=== PATIENT | male | born 1955 | race Caucasian/White ===

== ENCOUNTER → 2017-09-29 | Day surgery (SDC) | payer MEDICARE ==
[2017-09-28 10:07] LABS: INR 1.03; PROTHROMBIN TIME 12.7 seconds (11.9-14.5)
[2017-09-28 10:08] LABS: BASOPHILS # (AUTO) 0.1 (0.0-0.1); BASOPHILS % 0.5 % (0.0-1.0); EOSINOPHILS # (AUTO) 0.3 (0.0-0.4); EOSINOPHILS % 2.8 % (0.0-6.0); HEMATOCRIT 44.8 % (38.2-49.6); HEMOGLOBIN 15.4 g/dL (14.0-18.0); LYMPHOCYTES # (AUTO) 2.2 (1.0-3.2); LYMPHOCYTES % 19.3 % (18.0-39.1); MEAN CORPUSCULAR HEMOGLOBIN 35.3 pg (28-32); MEAN CORPUSCULAR HGB CONC 34.4 g/dL (31-35); MEAN CORPUSCULAR VOLUME 102.8 fL (81-99); MONOCYTES # (AUTO) 1.1 (0.2-0.8); MONOCYTES % 9.7 % (4.4-11.3); NEUTROPHILS # (AUTO) 7.6 (2.1-6.9); NEUTROPHILS % 67.4 % (38.7-80.0); PLATELET COUNT 220 x10e3/uL (140-360); RED BLOOD COUNT 4.36 x10e6/uL (4.3-5.7)
[2017-09-28 10:21] LABS: ALBUMIN 4.2 g/dL (3.5-5.0); ALBUMIN/GLOBULIN RATIO 1.1 (0.8-2.0); ANION GAP 15.3 mmol/L (8-16); CALCIUM 9.8 mg/dL (8.4-10.2); CHOL/HDL RATIO 2.9 (3.9-4.7); CREATININE, SERUM 1.5 mg/dL (0.72-1.25)
[2017-09-28 10:36] LABS: POTASSIUM 6.3 mmol/L (3.5-5.1)
[2017-09-28 13:07] LABS: BASOPHILS % 0.4 % (0.0-1.0); EOSINOPHILS # (AUTO) 0.2 (0.0-0.4); EOSINOPHILS % 1.7 % (0.0-6.0); HEMATOCRIT 44.8 % (38.2-49.6); HEMOGLOBIN 15.2 g/dL (14.0-18.0); LYMPHOCYTES # (AUTO) 1.8 (1.0-3.2); LYMPHOCYTES % 18.1 % (18.0-39.1); MEAN CORPUSCULAR HEMOGLOBIN 35.1 pg (28-32); MEAN CORPUSCULAR HGB CONC 33.9 g/dL (31-35); MEAN CORPUSCULAR VOLUME 103.5 fL (81-99); MONOCYTES # (AUTO) 0.7 (0.2-0.8); MONOCYTES % 6.8 % (4.4-11.3); NEUTROPHILS % 72.8 % (38.7-80.0); PLATELET COUNT 217 x10e3/uL (140-360); RED BLOOD COUNT 4.33 x10e6/uL (4.3-5.7)
[2017-09-28 13:17] LABS: INR 1.03; PROTHROMBIN TIME 12.7 seconds (11.9-14.5)
[2017-09-28 13:37] LABS: ALBUMIN 4.1 g/dL (3.5-5.0); ALBUMIN/GLOBULIN RATIO 1.1 (0.8-2.0); ANION GAP 15.8 mmol/L (8-16); CALCIUM 9.5 mg/dL (8.4-10.2); CREATININE, SERUM 1.29 mg/dL (0.72-1.25)
[2017-09-28 13:50] LABS: POTASSIUM 4.8 mmol/L (3.5-5.1)
[~2017-09-29] VITALS: Ht 186.7 cm; Wt 95.7 kg
[~2017-09-29] MED LIST: ASPIRIN 325 MG TAB ONE; ASPIRIN 325 MG TAB PO ONE; DOXAZOSIN MESYLA4 MG PO; FENTANYL CITRATE/PF 100MCG/2 ML INJ IV PRN; FENTANYL CITRATE/PF 100MCG/2 ML INJ ONE; HEPARIN SOD (PORCINE) 1000 UNIT/ML 30ML ONE; HEPARIN SOD/SOD CHLORIDE 2,000 ML ONE; IOPAMIDOL 370 MG/ML 200 ML INFUS..BTL INJ ONE; LIDOCAINE HCL 2% LOCAL 20 ML VIAL ONE; MIDAZOLAM HCL 2 MG/2 ML VIAL IV PRN; MIDAZOLAM HCL 2 MG/2 ML VIAL ONE; NITROGLYCERIN 400 MCG/SPRAY 4.9 GM BTL ONE; NITROGLYCERIN 400 MCG/SPRAY 4.9 GM BTL TL PRN; NITROGLYCERIN/D5W 200 MCG/ML 250 ML ONE; PRAVASTATIN SOD20 MG PO; SODIUM CHLORIDE 0.9% 1000ML 1,000 ML ONE; SODIUM CHLORIDE 0.9% 1000ML 500 ML IV ONE; VERAPAMIL HCL 2.5 MG/ML 2 ML VIAL ONE
[2017-09-29 07:21] VITALS: BP 125/87
--- NOTE | 2017-09-29 09:58 | Operative Report ---
DATE OF PROCEDURE: September 29, 2017 MANAGER DOCUMENTATION: Cosme Navarro, interventional cardiology. PROCEDURES PERFORMED 1. Left heart catheterization. 2. Selective coronary angiography x2. 3. Right radial TR Band hemostasis. PROCEDURE COMPLICATIONS: None. ESTIMATED BLOOD LOSS: Less than 5 mL. PROCEDURE SUMMARY: After consent was obtained, patient was prepped and draped in a sterile fashion. The right radial site was locally infiltrated with 2% lidocaine. Access was obtained using a single anterior stick, and a 5-Icelandic outer-diameter Slender sheath was placed. Verapamil 2.5 mg, 3000 units of heparin, and 300 mcg of nitroglycerin were administered via the sheath and a thick catheter was used for engagement of the right coronary artery, Franco catheter for engagement of the left main. A thick catheter was also used to cross the aortic valve for hemodynamic measurements. No left ventriculogram was performed, as patient's creatinine was 1.29 preprocedure. The following findings were noted: 1. A left main with luminal irregularities and large caliber gives an LAD and a circumflex. 2. The LAD has luminal irregularities throughout. It gives 2 septal perforators and 2 diagonals. In the apical portion, it wraps around the apex and ends in the apical anterior segment of LV myocardium. 3. The circumflex gives 2 obtuse marginals, the first of which has 30% proximal stenosis. 4. The right coronary artery is downward in takeoff and has, in the mid portion, an area of tubular 40% stenosis and a distal area of 30% focal stenosis. Terminal branches of this vessel are an RPDA and an RPLV. This is a dominant RCA. 5. LV pressure was 104 over minus 5, with end-diastolic pressure of 11. 6. Aortic pressure was 100/74. CONCLUSION: Mild to moderate multivessel coronary artery disease. RECOMMENDATIONS: Aspirin and statin. IV fluids. Wean TR Band. Follow up in the office in 1 to 2 weeks. Job#: [id number] TOÑO
== END | disposition home or self-care (01) ==
LOC: CATH LAB 07:21
PROVIDERS: ATTEND Internal Medicine Cardiovascular Disease
DX: I25.10 Atherosclerotic heart disease of native coronary artery without angina pectoris (principal); I10 Essential (primary) hypertension; E78.5 Hyperlipidemia, unspecified; I73.9 Peripheral vascular disease, unspecified; E11.9 Type 2 diabetes mellitus without complications; M06.9 Rheumatoid arthritis, unspecified; Z01.810 Encounter for preprocedural cardiovascular examination; Z01.812 Encounter for preprocedural laboratory examination; Z82.49 Family history of ischemic heart disease and other diseases of the circulatory system
CPT/HCPCS: 36415; 77002; 80053; 80061; 85025; 85610; 93005; 93458; C1887; J1644; J2001; J2250; J7030; Q9967; 36140

== ENCOUNTER 2017-10-21 14:33 | Observation (INO) | payer MEDICARE ==
[~2017-10-21] VITALS: Ht 186.7 cm; Wt 96.6 kg
[~2017-10-21 14:33] MED LIST changes: -ASPIRIN 325 MG TAB ONE; -ASPIRIN 325 MG TAB PO ONE; -FENTANYL CITRATE/PF 100MCG/2 ML INJ IV PRN; -FENTANYL CITRATE/PF 100MCG/2 ML INJ ONE; -HEPARIN SOD (PORCINE) 1000 UNIT/ML 30ML ONE; -HEPARIN SOD/SOD CHLORIDE 2,000 ML ONE; -IOPAMIDOL 370 MG/ML 200 ML INFUS..BTL INJ ONE; -LIDOCAINE HCL 2% LOCAL 20 ML VIAL ONE; -MIDAZOLAM HCL 2 MG/2 ML VIAL IV PRN; -MIDAZOLAM HCL 2 MG/2 ML VIAL ONE; -NITROGLYCERIN 400 MCG/SPRAY 4.9 GM BTL ONE; -NITROGLYCERIN 400 MCG/SPRAY 4.9 GM BTL TL PRN; -NITROGLYCERIN/D5W 200 MCG/ML 250 ML ONE; -SODIUM CHLORIDE 0.9% 1000ML 1,000 ML ONE; -SODIUM CHLORIDE 0.9% 1000ML 500 ML IV ONE; -VERAPAMIL HCL 2.5 MG/ML 2 ML VIAL ONE
[2017-10-21] MEDS ORDERED: ASPIRIN81 MG PO (14:49)
[2017-10-21] MEDS ORDERED: DOXAZOSIN MESYLA2 MG PO (14:49)
[2017-10-21] MEDS ORDERED: METOPROLOL SUCC25 MG PO (14:49)
[2017-10-21] MEDS ORDERED: COREG3.125 MG PO (14:49)
[2017-10-21] MEDS ORDERED: ATORVASTATIN CA40 MG PO (14:49)
[2017-10-21] MEDS ORDERED: ENOXAPARIN SODIUM INJ 100 MG/ML SYR SC STA (15:40)
[2017-10-21] MEDS ORDERED: ASPIRIN 81 MG CHEW TAB PO STA (15:40)
[2017-10-21] MEDS ORDERED: ONDANSETRON HCL INJ 2 MG/ML VIAL IV STA (15:40)
[2017-10-21] MEDS ORDERED: SODIUM CHLORIDE 0.9% 1000ML 1,000 ML IV STA (15:40)
[2017-10-21] MEDS ORDERED: PANTOPRAZOLE 40 MG 10ML VIAL IV STA (15:40)
[2017-10-21] MEDS ORDERED: MORPHINE SULFATE 2 MG/ML SYR IV STA (15:40)
[2017-10-21] MEDS ORDERED: METOPROLOL TARTRATE 50 MG TAB PO STA (15:40)
[2017-10-21 15:58] LABS: BASOPHILS % 0.3 % (0.0-1.0); EOSINOPHILS # (AUTO) 0.2 (0.0-0.4); EOSINOPHILS % 1.8 % (0.0-6.0); HEMATOCRIT 45.1 % (38.2-49.6); HEMOGLOBIN 15.5 g/dL (14.0-18.0); LYMPHOCYTES # (AUTO) 1.4 (1.0-3.2); LYMPHOCYTES % 14.9 % (18.0-39.1); MEAN CORPUSCULAR HEMOGLOBIN 34.8 pg (28-32); MEAN CORPUSCULAR HGB CONC 34.4 g/dL (31-35); MEAN CORPUSCULAR VOLUME 101.1 fL (81-99); MONOCYTES # (AUTO) 0.7 (0.2-0.8); NEUTROPHILS % 75.7 % (38.7-80.0); PLATELET COUNT 167 x10e3/uL (140-360); RED BLOOD COUNT 4.46 x10e6/uL (4.3-5.7); RED CELL DISTRIBUTION WIDTH 12.3 % (11.7-14.4)
[2017-10-21] MEDS ORDERED: ONDANSETRON HCL INJ 2 MG/ML VIAL IV PRN (16:00)
[2017-10-21] MEDS ORDERED: MORPHINE SULFATE 2 MG/ML SYR IV PRN (16:00)
[2017-10-21] MEDS ORDERED: SODIUM CHLORIDE FLUSH 10 ML SYR INJ PRN (16:00)
[2017-10-21] MEDS ORDERED: NITROGLYCERIN 0.4 MG SUBL SL PRN (16:00)
[2017-10-21 16:02] LABS: INR 1.05; PROTHROMBIN TIME 12.9 seconds (11.9-14.5)
[2017-10-21 16:03] LABS: BILIRUBIN,URINE NEGATIVE (NEGATIVE); CLARITY,URINE CLEAR (CLEAR); COLOR,URINE YELLOW (YELLOW); KETONES,URINE NEGATIVE (NEGATIVE); LEUKOCYTE ESTERASE ,URINE NEGATIVE (NEGATIVE); NITRITE,URINE NEGATIVE (NEGATIVE); PARTIAL THROMBOPLASTIN TIME 29.3 seconds (23.8-35.5); PROTEIN,URINE DIPSTICK NEGATIVE (NEGATIVE); URINE UROBILINOGEN 0.2 mg/dL (0.2 - 1)
[2017-10-21 16:11] LABS: ALANINE AMINOTRANSFERASE 17 IU/L (0-55); ALBUMIN 4.4 g/dL (3.5-5.0); ALBUMIN/GLOBULIN RATIO 1.3 (0.8-2.0); ALKALINE PHOSPHATASE 72 IU/L (40-150); ANION GAP 16.9 mmol/L (8-16); BLOOD UREA NITROGEN 14 mg/dL (7-26); BUN/CREATININE RATIO 13 (6-25); CALCIUM 9.4 mg/dL (8.4-10.2); CARBON DIOXIDE 25 mmol/L (22-29); CHLORIDE 102 mmol/L (98-107); CREATINE KINASE 90 IU/L (30-200); CREATININE, SERUM 1.11 mg/dL (0.72-1.25); EST GLOMERULAR FILTRATION RATE > 60 ML/MIN (60-); GLUCOSE 98 mg/dL (74-118); LIPASE 63 U/L (8-78); MAGNESIUM 2.3 MG/DL (1.3-2.1); POTASSIUM 3.9 mmol/L (3.5-5.1); SODIUM 140 mmol/L (136-145)
[2017-10-21 16:31] LABS: THYROID STIMULATING HORMONE 1.276 uIU/mL (0.350-4.940)
[2017-10-21] MEDS: ENOXAPARIN SODIUM INJ 100 MG/ML SYR SC SCH (16:31)
[2017-10-21] MEDS: METOPROLOL TARTRATE 25 MG TAB PO SCH (16:31)
[2017-10-21 16:36] LABS: MUCUS,URINE MODERATE (RARE); WBC,URINE (MAN) 0-5 /HPF (0-5)
--- NOTE | 2017-10-21 17:02 | Diagnostic Imaging Report ---
PROCEDURE: A single AP view of the chest. COMPARISON: None. INDICATIONS: CHEST PAIN FINDINGS: Lines/tubes: None. Lungs: The lungs are slightly hypoinflated but grossly clear. There is no evidence of pneumonia or pulmonary edema. Pleura: There is no pleural effusion or pneumothorax. Heart and mediastinum: Cardiac silhouette is unremarkable. Pulmonary vasculature is normal. Bones: No acute bony abnormality. IMPRESSION: 1. slightly hypoinflated lungs, without acute cardiopulmonary abnormalities. Yves Mcdonough M.D. Dictated by: Yves Mcdonough M.D. on 10/21/2017 at 17:02 Electronically approved by: Yves Mcdonough M.D. on 10/21/2017 at 17:02
[2017-10-21] MEDS: FAMOTIDINE 20 MG/2 ML VIAL IV SCH (17:34)
[2017-10-21 18:49] VITALS: BP 135/70
[2017-10-21 18:54] VITALS: BP 128/79
[2017-10-21 19:20] VITALS: BP 120/68
[2017-10-21 20:00] VITALS: BP 120/68
--- NOTE | 2017-10-21 20:00 | Diagnostic Imaging Report ---
EXAM: CT Chest WITH contrast 10/21/2017 6:38 PM INDICATION: \S\Chest pain. r/o PE \[id number] \S\[id number] COMPARISON: None. TECHNIQUE: Abdomen and pelvis were scanned utilizing a multidetector helical scanner from the lung base to the pubic symphysis after administration of IV contrast. Coronal and sagittal reformations were obtained. IV CONTRAST: 100 mL of Isovue-370 ORAL CONTRAST: None COMPLICATIONS: None RADIATION DOSE: Total DLP: 503.7 mGy*cm Estimated effective dose: (DLP x 0.015 x size factor) mSv CTDIvol has been reviewed. It is below the limits set by the Radiation Protocol Committee (RPC). FINDINGS: LINES/ TUBES: None. PULMONARY ARTERIES: No filling defects are identified in the main, right or left pulmonary arteries to their segmental and subsegmental levels, to suggest pulmonary embolism. The main pulmonary artery is normal in size. LUNGS AND AIRWAYS: Minimal atelectasis in both lung bases. Otherwise, lungs are clear. Airways are normal. PLEURA: Trace bilateral pleural effusions. No pneumothorax. HEART AND MEDIASTINUM: The thyroid gland is normal. Few nonspecific subcentimeter right hilar lymph nodes. The left atrium is mildly enlarged. No RV strain. There is no pericardial effusion. The thoracic aorta is normal in caliber and associated with minimal calcifications in the arch. UPPER ABDOMEN: Cholecystectomy. BONES: The visualized bony thorax is within normal limits. SOFT TISSUES: Unremarkable. IMPRESSION: No pulmonary embolism. Minimal atelectasis in both lung bases, otherwise unremarkable lungs. Trace bilateral pleural effusions. Signed by: Dr. Alma Benitez M.D. on 10/21/2017 7:57 PM
[2017-10-21] MEDS: ATORVASTATIN 40 MG TAB PO SCH (20:11)
[2017-10-21] MEDS ORDERED: ATORVASTATIN 20 MG TAB PO SCH (21:00)
[2017-10-21] MEDS ORDERED: IOPAMIDOL 370 MG/ML 200 ML INFUS..BTL INJ ONE (22:42)
[2017-10-21] MEDS ORDERED: SODIUM CHLORIDE 0.9% 50ML 50 ML ONE (22:42)
--- NOTE | 2017-10-21 23:40 | Consultation ---
DATE OF CONSULTATION: October 21, 2017 CARDIOLOGY CONSULTATION REASON FOR CONSULTATION: Chest pain. REFERRING PHYSICIANS: Dr. Ney Jiang and Dr. Jayce Ruggiero. HISTORY OF PRESENT ILLNESS: Mr. Anglin is a pleasant, 62-year-old man with history of hypertension, dyslipidemia, and family history for CAD, status post recent cardiac catheterization on September 29, 2017 at the time with 1st obtuse marginal 30% and RCA 40% in the mid portion of the RCA and then 30% in distal focal area. No gradient across the aortic valve on pullback and normal LVEDP at the time. He presents with complaints of chest pain, moderate in severity, lasted pretty much all day today, still mild, however, present. EKG shows sinus rhythm. His chest x-ray shows slightly hypoinflated lungs without acute cardiopulmonary abnormalities. His BNP was 17.5 and his troponin I was 0.004 at 3:30 p.m. today. Normal lipase. He has no other complaints at this time. REVIEW OF SYSTEMS: Twelve systems reviewed, negative except for as noted above. ALLERGIES: NO KNOWN DRUG ALLERGIES. PAST MEDICAL HISTORY: As per HPI. SOCIAL HISTORY: Negative x3. FAMILY HISTORY: Significant for early onset coronary artery disease. PHYSICAL EXAMINATION VITAL SIGNS: Temperature 98.1, heart rate 60, respiratory rate 18, blood pressure 128/79, O2 sat 100% on 2 liters per minute nasal cannula. GENERAL: In no acute distress, alert. NECK: No JVD. No carotid bruits. CHEST: Clear to auscultation. CARDIOVASCULAR: Regular rate and rhythm. Normal S1 and S2. No S3. No S4. No murmurs or rubs. ABDOMEN: Soft, nontender. EXTREMITIES: No edema. Warm distal extremities. CARDIOVASCULAR MEDICATIONS: Reviewed and include metoprolol tartrate 25 mg q.12 h. Atorvastatin 40 mg nightly. Lovenox 1 mg/kg q.12 h. Doxazosin 2 mg daily. Nitroglycerin p.r.n. STUDIES: Reviewed and significant for creatinine of 1.1. Normal transaminases. Normal cardiac initial biomarkers. TSH of 1.2. INR 1. White blood cells 9.2, hemoglobin 15.5, platelets 167,000. Echocardiogram reviewed left ventricular function, normal regional wall motion, left ventricular ejection fraction of 60% to 65%. Age appropriate diastolic filling. Borderline left atrial enlargement. Trace mitral regurgitation. Small generalized pericardial effusion. ASSESSMENT 1. Atypical chest pain with initial negative cardiac biomarkers. 2. Mild to moderate coronary artery disease. 3. Hypertension and dyslipidemia. RECOMMENDATIONS: 1. Continue current cardiovascular medications. Recommend CTAB protocol. 2. Regarding pericardial effusion, can consider management empirically for acute pericarditis and assess response. 3. Will continue to monitor closely. 4. Await CT results. 5. Trend cardiac enzymes. 6. Further recommendations to follow. Job#: [id number]
[2017-10-22] VITALS (7 sets, daily range): BP systolic 93–124; BP diastolic 56–62
[2017-10-22 00:10] LABS: CREATINE KINASE 85 IU/L (30-200)
[2017-10-22] MEDS: METOPROLOL TARTRATE 25 MG TAB PO SCH ×2 (03:47→16:00)
[2017-10-22] MEDS: ENOXAPARIN SODIUM INJ 100 MG/ML SYR SC SCH (03:55)
[2017-10-22] MEDS: FAMOTIDINE 20 MG/2 ML VIAL IV SCH (03:55)
[2017-10-22 06:11] LABS: BASOPHILS % 0.4 % (0.0-1.0); EOSINOPHILS # (AUTO) 0.2 (0.0-0.4); HEMATOCRIT 40.6 % (38.2-49.6); HEMOGLOBIN 13.9 g/dL (14.0-18.0); LYMPHOCYTES # (AUTO) 2.8 (1.0-3.2); LYMPHOCYTES % 27.9 % (18.0-39.1); MEAN CORPUSCULAR HEMOGLOBIN 34.7 pg (28-32); MEAN CORPUSCULAR HGB CONC 34.2 g/dL (31-35); MEAN CORPUSCULAR VOLUME 101.2 fL (81-99); MONOCYTES # (AUTO) 0.8 (0.2-0.8); MONOCYTES % 7.8 % (4.4-11.3); NEUTROPHILS # (AUTO) 6.1 (2.1-6.9); NEUTROPHILS % 61.7 % (38.7-80.0); PLATELET COUNT 177 x10e3/uL (140-360); RED BLOOD COUNT 4.01 x10e6/uL (4.3-5.7); RED CELL DISTRIBUTION WIDTH 12.5 % (11.7-14.4)
[2017-10-22 06:39] LABS: ALANINE AMINOTRANSFERASE 18 IU/L (0-55); ALBUMIN 3.7 g/dL (3.5-5.0); ALBUMIN/GLOBULIN RATIO 1.3 (0.8-2.0); ALKALINE PHOSPHATASE 58 IU/L (40-150); ANION GAP 14.8 mmol/L (8-16); BLOOD UREA NITROGEN 14 mg/dL (7-26); BUN/CREATININE RATIO 13 (6-25); CARBON DIOXIDE 27 mmol/L (22-29); CHLORIDE 108 mmol/L (98-107); CHOLESTEROL 130 MD/DL (0-199); CREATINE KINASE 76 IU/L (30-200); CREATININE, SERUM 1.11 mg/dL (0.72-1.25); EST GLOMERULAR FILTRATION RATE > 60 ML/MIN (60-); GLUCOSE 91 mg/dL (74-118); HDL CHOLESTEROL 43 MG/DL (40-60); LDL CHOLESTEROL 72 MG/DL (60-130); MAGNESIUM 2.2 MG/DL (1.3-2.1); POTASSIUM 4.8 mmol/L (3.5-5.1); SODIUM 145 mmol/L (136-145); TRIGLYCERIDES 76 MG/DL (0-149)
[2017-10-22] MEDS: ASPIRIN 81 MG ENTERIC COATED PO SCH (08:55)
[2017-10-22] MEDS ORDERED: ASPIRIN 325 MG TAB EC PO SCH (09:00)
[2017-10-22] MEDS ORDERED: DOXAZOSIN MESYLATE 2 MG TAB PO SCH (09:00)
[2017-10-22] MEDS ORDERED: CITRATE OF MAGNESIA 300ML BOTTLE PO ONE (14:15)
[2017-10-22] MEDS: IBUPROFEN 400 MG TAB PO SCH ×2 (14:44→21:08)
[2017-10-22] MEDS ORDERED: IBUPROFEN 600 MG TAB PO SCH (15:00)
[2017-10-22 15:02] LABS: CREATINE KINASE 72 IU/L (30-200)
--- NOTE | 2017-10-22 15:03 | Progress Note ---
DATE: October 22, 2017 CARDIOLOGY PROGRESS NOTE SUBJECTIVE: The patient continues to complain of chest pain. He denies shortness of breath. OBJECTIVE VITAL SIGNS: Temperature 95.6 degrees, pulse 60, respiratory rate 18, blood pressure 99/61, oxygen saturation 97% on room air. GENERAL: Awake, alert, in no acute distress. LUNGS: Clear to auscultation bilaterally. No wheezes or crackles. CARDIOVASCULAR: Normal rate, regular rhythm. No murmur. Normal S1 and S2. ABDOMEN: Soft, nontender. EXTREMITIES: No edema. CARDIAC MEDICATIONS 1. Aspirin 162 mg p.o. daily. 2. Atorvastatin 40 mg p.o. at bedtime. 3. Doxazosin 2 mg p.o. daily. 4. Metoprolol titrate 25 mg q.12 hours. LABS: WBC 9.96, hemoglobin 13.9, hematocrit 40.6, platelets 177. Sodium 145, potassium 4.8, chloride 108, CO2 of 27, BUN 14, creatinine 1.11. Troponin less than 0.001. Cholesterol 130, triglyceride 76, LDL 72, and HDL 43. TELEMETRY: Normal sinus rhythm. IMPRESSION 1. Atypical chest pain with negative cardiac biomarkers. 2. [id number] coronary artery disease. 3. Hypertension. 4. Dyslipidemia. RECOMMENDATIONS: Continue current cardiac medications. CTA of the chest ruled out was without evidence of PE. Echocardiogram only revealed a small generalized pericardial effusion. Consider empiric management for acute pericarditis with NSAIDs. Alternatively consider GI evaluation. Thank you for this consult. We will continue to follow. Job#: [id number] ANA
[2017-10-22] MEDS: PANTOPRAZOLE SOD 40 MG TABEC PO SCH (16:23)
[2017-10-22] MEDS: ATORVASTATIN 40 MG TAB PO SCH (21:08)
[2017-10-23] VITALS: BP 124/63
[2017-10-23 04:00] VITALS: BP 115/56
[2017-10-23] MEDS: METOPROLOL TARTRATE 25 MG TAB PO SCH (04:00)
[2017-10-23 08:11] VITALS: BP 133/61
[2017-10-23] MEDS: PANTOPRAZOLE SOD 40 MG TABEC PO SCH (08:49)
[2017-10-23] MEDS: ASPIRIN 81 MG ENTERIC COATED PO SCH (08:49)
[2017-10-23] MEDS: IBUPROFEN 400 MG TAB PO SCH (08:50)
[2017-10-23 09:12] VITALS: BP 133/61
[2017-10-23] MEDS ORDERED: PANTOPRAZOLE SO40 MG PO (09:29)
[2017-10-23] MEDS ORDERED: IBUPROFEN200 MG PO (09:29)
--- NOTE | 2017-10-23 14:03 | Discharge Summary ---
PRIMARY CARE DOCTOR: Miguelito Silva MD FINAL DIAGNOSIS: Likely pericarditis. SECONDARY DIAGNOSES 1. Hypertension. 2. Dyslipidemia. 3. Rheumatoid arthritis. 4. Constipation, resolved. JANITORIAL TECH: Dr. Navarro, cardiology. PROCEDURES/STUDIES PERFORMED: CT angiography of the chest, which was negative for PE. HISTORY: Per [facility] HOSPITAL COURSE: Given the fact that the patient just had a left heart cath less than a month ago which showed nonobstructive coronary artery disease, this is not a cardiac chest pain. The patient recently, less than a month ago, stopped his methotrexate on his own because it was not working, which may have potentially contributed to inflammation. The patient was started on high-dose ibuprofen 800 mg t.i.d. with meals, and he is doing much better now. Protonix was started as well just in case there is a GI component to his chest pain and also as a GI prophylaxis. Since the patient is doing well now, he will go home today on 2 more weeks of daily Protonix and 600 mg t.i.d. with meals of ibuprofen. His constipation was resolved with magnesium citrate. The patient was seen and examined today. CONDITION ON DISCHARGE: Stable. DISCHARGE MEDICATIONS: Please see medication reconciliation form. Of note, since he still feels that by switching his metoprolol succinate to Coreg was partially to be blamed, I told him to just continue his metoprolol succinate and not take his Coreg. ANDREY BARRETT M.D. Job#: [id number] cc:MIGUELITO SILVA MD
== END 2017-10-23 10:13 | disposition home or self-care (01) ==
LOC: ER 14:33 → ERHOLD 16:55 → IMCU 17:31
PROVIDERS: ADMIT Internal Medicine; ATTEND Internal Medicine
DX: R07.89 Other chest pain (principal); J90 Pleural effusion, not elsewhere classified; K59.00 Constipation, unspecified; M06.9 Rheumatoid arthritis, unspecified; I10 Essential (primary) hypertension; I25.10 Atherosclerotic heart disease of native coronary artery without angina pectoris; E78.5 Hyperlipidemia, unspecified
CPT/HCPCS: 36415; 71045; 71260; 80053; 80061; 81001; 82550; 82553; 83690; 83735; 83880; 84443; 84484; 85025; 85610; 85730; 87086; 93005; 93306; 99284; G0378; J1650; J2270; J2405; J7030; Q9967

== ENCOUNTER → 2019-08-10 | Outpatient (CLI) | payer MEDICARE ==
[~2019-08-10] MED LIST changes: +ASPIRIN81 MG PO; +ATORVASTATIN CA40 MG PO; +COREG3.125 MG PO; +DOXAZOSIN MESYLA2 MG PO; +IBUPROFEN200 MG PO; +METOPROLOL SUCC25 MG PO; +PANTOPRAZOLE SO40 MG PO
--- NOTE | 2019-08-10 08:39 | Diagnostic Imaging Report ---
EXAM: US THYROID DATE: 08/10/2019 7:46 AM INDICATION: Thyroid nodule COMPARISON: None FINDINGS: The right thyroid lobe is normal in size measuring 4.3 x 1.5 x 1.5 cm. The isthmus measures 2 mm in thickness and appears unremarkable. The left thyroid lobe is normal in size measuring 4.1 x 1.6 x 1.5 cm. The thyroid parenchyma is homogeneous without evidence for focal nodule. Thyroid vascularity is within normal limits. IMPRESSION: Unremarkable thyroid ultrasound examination. Signed by: Dr. Hemant Newsome MD on 08/10/2019 8:35 AM
== END ==
LOC: US 07:34
PROVIDERS: ATTEND Family Medicine
DX: E04.1 Nontoxic single thyroid nodule (principal)
CPT/HCPCS: 76536

== ENCOUNTER 2020-01-20 10:36 | Observation (INO) | payer MEDICARE ==
[~2020-01-20] VITALS: Ht 185.4 cm; Wt 102.5 kg
--- OUTSIDE RECORDS SUMMARY | 2020-01-20 10:40 | XMS REPORT | Continuity of Care Document ---
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 Active Problem 01/06/2020 Satinder Meek Encounter for long-term (current) use of other high-risk medications Active Diag nosis 10/22/2018 Satinder Meek Need for prophylactic vaccination and in oculation against influenza Active Diag nosis 07/06/2017 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 Problem 01/06/2020 Satinder Meek Encounter for screening for other infect ious and parasitic diseases Active Diag nosis 09/21/2019 Satinder Meek Encounter for screening for other bacterial diseases Active Diagnosis 09/21/2019 Satinder Meek Encounter for screening for other viral diseases Active Diagnosis 09/21/2019 Satinder Meek Encounter for screening for infectious a nd parasitic diseases, unspecified Active Diagnosis 09/21/2019 Satinder Meek Encounter for screening for respiratory tuberculosis Active Diagnosis 09/21/2019 aStinder Meek Shoulder pain Active Diagnosis 09/21/2019 Satinder Meek Immunocompromised state Active Problem 01/06/2020 Satinder Meek Medications Medication Details Route Status Patient Instructions Ordering Provider Order Date Source PredniSONE 1 tablet Orally Active 5 MG Orally Once a day [place] 12/19/2019 Satinder Meek PredniSONE 1 tablet Orally Active 5 MG Orally Once a day [place] 09/12/2019 Satinder Meek Prednisone Taper 3 tablets for 5 days, 2 tablets for 5 days and then 1 tablet for 5 days Orally Active 5mg Orally once a day [place] 08/23/2019 Satinder Meek Prednisone Taper 3 tablets for 5 days, 2 tablets for 5 days and then 1 tablet for 5 days Orally Active 5mg Orally once a day [facility] 07/10/2019 Satinder Meek Methotrexate (Anti-Rheumatic) 6 tablets Orally Active 2.5 MG Orally q week [facility] 07/20/2018 Satinder Meek Methotrexate (Anti-Rheumatic) 10 tablets orally Active 2.5 MG orally once a week [place] 07/20/2018 Satinderaddie Meek Simponi Aria 2mg/kg at 220 lbs (199.6mg) Intravenous Active 50 MG/4ML Intravenous loading dose at week 0 4 and then q8wks [place] 07/19/2018 Satinder Meek Folic Acid 1 tablet Orally Active 1 MG Orally Once a day [place] 06/10/2017 Satinder Meek Folic Acid 1 tablet Orally Active 1 MG Orally Once a day [place] 09/14/2016 Satinderaddie Meek Methotrexate (Anti-Rheumatic) 6 tablets Orally Active 2.5 MG Orally q week [place] 01/14/2016 Satinderaddie Meek Methotrexate (Anti-Rheumatic) 4 tablets Orally Active 2.5 MG Orally q week [place] 01/14/2016 Satinderaddie Meek Folic Acid 1 tablet Orally Active 1 MG Orally Once a day [place] 10/10/2015 Satinder Meek Methotrexate four tabs Orally Active 2.5 MG Orally q weeks [place] 10/10/2015 Satinderaddie Meek Methotrexate take 6 pills once weekly Orally Active 2.5mg Orally Once a week [place] 01/17/2014 Satinderaddie Meek Methotrexate 5 tablets Orally Active 2.5mg Orally Once a wee k [place] 12/24/2013 Satinder Meek Folic Acid as directed Orally Active 1 MG Orally q am [facility] 10/21/2012 Satinder Meek Doxazosin Mesylate 1 tablet Orally Active 4 MG Orally Once a day Brendon eMek Pravastatin Sodium 1 tablet Orally Active 80 MG Orally Once a day [place] Satinder Meek Aspir-81 1 tablet Orally Active 81 MG Orally Once a day Brendon Meek Atorvastatin Calcium 1 tablet Orally Active 80 MG Orally Once a day [place] Satinder Meek Folic Acid TAKE 1 TABLET BY [facility] ONCE A DAY NA Active 1 MG Brendon Meek Metoprolol Succinate ER 1 tabl et Orally Active 25 MG Orally Once a day [place] Satinder Meek Doxazosin Mesylate 1 tablet Orally Active 4 MG Orally Once a day [place] Satinder Meek Pravastatin Sodium 1 tablet Orally Active 80 MG Orally Once a day Meek Satinder Meek Tramadol one tab orally Active 50 mg orally every 4-6 hours prn pain Susanna Meek Ciprofloxacin 5 ml Orally Active 500 MG/5ML (10%) Orally Twice a day Susanna Meek Metoprolol Tartrate 1 tablet w ith food Orally Active 100 MG Orally Twice a day Brendon Meek Inflectra as directed Intravenous Active 100 MG Intravenous Brendon Meek Rosuvastatin Calcium 1 tablet Orally Active 40 MG Orally Once a day Brendon Meek Metoprolol Tartrate 1 tablet w ith food Orally Active 25 MG Orally Twice a day Brendon Meek Terbinafine HCl 1 tablet Orally Active 250 MG Orally Once a da y Brendon Meek Allergies, Adverse Reactions, Alerts Substance Category Reaction Severity Reaction type Status Date Reported Comments Source N.K.D.A. Adverse Reaction Info Not Available Adverse Reaction 01/04/2020 Satinder Meek Immunizations Immunization Date Given Site Status Last Updated Comments Source Flu Vaccine 06/29/2017 completed Satinder Meek Depomedrol 10/10/2015 completed Satinder Meek Depomedrol 12/22/2013 completed Satinder Meek Toradol 12/22/2013 completed Satinder Meek Results No Data Provided for This Section Pathology Reports No Data Provided for This Section Diagnostic Reports No Data Provided for This Section Consultation Notes No Data Provided for This Section Discharge Summaries No Data Provided for This Section History and Physicals No Data Provided for This Section Vital Signs Vital Sign Value Date Comments Source Weight 218.7 01/04/2020 Satnider Meek Height 74 0 01/04/2020 Satinder Meek Temperature Oral (F) 99.3 F 01/04/2020 Satinder Meek Heart Rate 64 01/04/2020 Satinder Meek Diastolic (mm Hg) 72 01/04/2020 Satinder Meek Systolic (mm Hg) 112 01/04/2020 Satinder Meek Weight 215.3 11/09/2019 Satinder Meek Height 74 0 11/09/2019 Satinder Meek Temperature Oral (F) 97.6 F 11/09/2019 Satinder Meek Heart Rate 64 11/09/2019 Satinder Meek Diastolic (mm Hg) 62 11/09/2019 Satinder Meek Systolic (mm Hg) 100 11/09/2019 Satinder Meek Weight 217.8 09/12/2019 Satinder Meek Height 74 0 09/12/2019 Satinder Meek Temperature Oral (F) 97.4 F 09/12/2019 Satinder Meek Heart Rate 87 09/12/2019 Satinder Meek Diastolic (mm Hg) 83 09/12/2019 Satinder Meek Systolic (mm Hg) 145 09/12/2019 Satinder Meek Weight 224.6 07/10/2019 Satinder Meek Height 71 1 09/09/2018 Satinder Meek Temperature Oral (F) 99.0 F 07/10/2019 Satinder Meek Heart Rate 92 07/10/2019 Satinder Meek Diastolic (mm Hg) 88 07/10/2019 Satinder Meek Systolic (mm Hg) 118 07/10/2019 Satinder Meek Weight 226.9 05/22/2019 Satinder Meek Height 74 1 Satinder Meek Temperature Oral (F) 97.4 F 05/22/2019 Satinder Meek Heart Rate 91 05/22/2019 Satinder Meek Diastolic (mm Hg) 79 05/22/2019 Satinder Meek Systolic (mm Hg) 130 05/22/2019 Satinder Meek Weight 229.1 03/27/2019 Satinder Meek Height 74 0 03/27/2019 Satinder Meek Temperature Oral (F) 97.8 F 03/27/2019 Satinder Meek Heart Rate 72 03/27/2019 Satinder Meek Diastolic (mm Hg) 80 03/27/2019 Satinder Meek Systolic (mm Hg) 112 03/27/2019 Satinder Meek Weight 218.8 10/17/2018 Satinder Meek Height 74 0 10/17/2018 Satinder Meek Temperature Oral (F) 96.8 F 10/17/2018 Satinder Meek Heart Rate 70 10/17/2018 Satinder Meek Diastolic (mm Hg) 80 10/17/2018 Satinder Meek Systolic (mm Hg) 122 10/17/2018 Satinder Meek Weight 220.1 07/19/2018 Satinder Meek Height 74 1 09/19/2017 Satinder Meek Temperature Oral (F) 97.0 F 07/19/2018 Satinder Meek Heart Rate 76 07/19/2018 Satinder Meek Diastolic (mm Hg) 84 07/19/2018 Satinder Meek Systolic (mm Hg) 122 07/19/2018 Satinder Meek Weight 205.3 06/29/2017 Satinder Meek Height 74 1 08/29/2016 Satinder Meek Temperature Oral (F) 97.5 F 06/29/2017 Satinder Meek Heart Rate 70 06/29/2017 Satinder Meek Diastolic (mm Hg) 88 06/29/2017 Satinder Meek Systolic (mm Hg) 120 06/29/2017 Satinder Meek Weight 225 10/10/2015 Satinder Meek Height 74 0 10/10/2015 Satinder Meek Temperature Oral (F) 97.4 F 10/10/2015 Satinder Meek Weight 220 12/22/2013 Satinder Meek Height 73 0 12/22/2013 Satinder Meek Temperature Oral (F) 97.2 F 12/22/2013 Satinder Meek Heart Rate 80 12/22/2013 Satinder Meek Diastolic (mm Hg) 72 12/22/2013 Satinder Meek Systolic (mm Hg) 124 12/22/2013 Satinder Meek Encounters Location Location Details Encounter Type Encounter Number Reason For Visit Attending Provider ADM Date DC Date Status Source Altaf Meek MD Unknown [id number] 12/23/19 14 12/22/2013 Satinder Meek MD Unknown [id number] 12/23/19 14 12/22/2013 Satinder Meek MD Unknown [id number] 12/23/19 14 12/22/2013 Satinder Meek MD Unknown [id number] 12/23/19 14 12/22/2013 Satinder Meek MD Unknown [id number] 12/23/19 14 12/22/2013 Satinder Meek MD Unknown [id number] 12/23/19 14 12/22/2013 Satinder Meek MD Unknown [id number] 12/23/19 14 12/22/2013 Satinder Meek MD Unknown [id number] 12/23/19 14 12/22/2013 Satinder Meek MD Unknown [id number] 12/23/19 14 12/22/2013 Satinder Meek MD Unknown [id number] 12/23/19 14 12/22/2013 Satinder Meek MD Unknown [id number] 12/23/19 14 12/22/2013 Satinder Meek MD Treatment update [id number] 12/25/19 14 12/24/2013 Satinder Meek MD Treatment update [id number] 12/25/19 14 12/24/2013 Satinder Meek MD Treatment update [id number] 12/25/19 14 12/24/2013 Satinder Meek MD Treatment update [id number] 12/25/19 14 12/24/2013 Satinder Meek MD Treatment update [id number] 12/25/19 14 12/24/2013 Satinder Meek MD Treatment update [id number] 12/25/19 14 12/24/2013 Satinder Meek MD Treatment update [id number] 12/25/19 14 12/24/2013 Satinder Meek MD Treatment update [id number] 12/25/19 14 12/24/2013 Satinder Meek MD Treatment update [id number] 12/25/19 14 12/24/2013 Satinder Meek MD Treatment update [id number] 12/25/19 14 12/24/2013 Satinder Meek MD Treatment update [id number] 12/25/19 14 12/24/2013 Satinder Meek MD Treatment update [id number] 12/25/19 14 12/24/2013 Satinder Meek MD Treatment update [id number] 12/25/19 14 12/24/2013 Satinder Meek MD BILLING [id number] 12/26/19 14 12/25/2013 Satinder Meek MD BILLING [id number] 12/26/19 14 12/25/2013 Satinder Meek MD BILLING [id number] 12/26/19 14 12/25/2013 Satinder Meek MD BILLING [id number] 12/26/19 14 12/25/2013 Satinder Meek MD BILLING [id number] 12/26/19 14 12/25/2013 Satinder Meek MD BILLING [id number] 12/26/19 14 12/25/2013 Satinder Meek MD BILLING [id number] 12/26/19 14 12/25/2013 Satinder Meek MD BILLING [id number] 12/26/19 14 12/25/2013 Satinder Meek MD BILLING [id number] 12/26/19 14 12/25/2013 Satinder Meek MD BILLING [id number] 12/26/19 14 12/25/2013 Satinder Meek MD BILLING [id number] 12/26/19 14 12/25/2013 Satinder Meek MD BILLING [id number] 12/26/19 14 12/25/2013 Satinder Meek MD BILLING [id number] 12/26/19 14 12/25/2013 Satinder Meek MD Research [id number] 01/16/20 14 01/15/2014 Satinder Meek MD Research [id number] 01/16/20 14 01/15/2014 Satinder Meek MD Research [id number] 01/16/20 14 01/15/2014 Satinder Meek MD Research [id number] 01/16/20 14 01/15/2014 Satinder Meek MD Research [id number] 01/16/20 14 01/15/2014 Satinder Meek MD Research [id number] 01/16/20 14 01/15/2014 Satinder Meek MD Research [id number] 01/16/20 14 01/15/2014 Satinder Meek MD Research [id number] 01/16/20 14 01/15/2014 Satinder Meek MD Research [id number] 01/16/20 14 01/15/2014 Satinder Meek MD Research [id number] 01/16/20 14 01/15/2014 Satinder Meek MD Research [id number] 01/16/20 14 01/15/2014 [facility]atinder [facility] [id number] 03/12/20 14 03/12/2014 Satinder Meek MD Refill- MTX [id number] 03/12/20 14 03/12/2014 Satinder Meek MD Refill- MTX [id number] 03/12/20 14 03/12/2014 Satinder Meek MD Refill- MTX [id number] 03/12/20 14 03/12/2014 Satinder Meek MD Refill- MTX [id number] 03/12/20 14 03/12/2014 Satinder Meek MD Refill- MTX [id number] 03/12/20 14 03/12/2014 Satinder Meek MD Refill- MTX [id number] 03/12/20 14 03/12/2014 Satinder Meek MD Refill- MTX [id number] 03/12/20 14 03/12/2014 Satinder Meek MD Refill- MTX [id number] 03/12/20 14 03/12/2014 Satinder Meek MD actemra PE [id number] 04/30/20 14 04/30/2014 Satinder Meek MD actemra PE [id number] 04/30/20 14 04/30/2014 Satinder Meek MD actemra PE [id number] 04/30/20 14 04/30/2014 Satinder Meek MD actemra PE [id number] 04/30/20 14 04/30/2014 Satinder Meek MD actemra PE [id number] 04/30/20 14 04/30/2014 Satinder Meek MD actemra PE [id number] 04/30/20 14 04/30/2014 Satinder Meek MD actemra PE [id number] 04/30/20 14 04/30/2014 Satinder Meek MD [facility] [id number] 05/28/20 14 05/28/2014 Satinder Meek MD [facility] [id number] 05/28/20 14 05/28/2014 Satinder Meek MD [place] [id number] 05/28/20 14 05/28/2014 Satinder Meek MD [place] [id number] 05/28/20 14 05/28/2014 Satinder Meek MD [place] [id number] 05/28/20 14 05/28/2014 Satinder Meek MD [place] [id number] 05/28/20 14 05/28/2014 Satinder Meek MD [facility] [id number] 05/28/20 14 05/28/2014 Satinder Meek MD [facility] [id number] 05/28/20 14 05/28/2014 Satinder Meek MD abbvie 465 SANDRA vs humira [id number] 10/10/19 16 10/10/2015 Satinder Meek MD abbvie 465 SANDRA vs humira [id number] 10/10/19 16 10/10/2015 Satinder Meek MD abbvie 465 SANDRA vs humira [id number] 10/10/19 16 10/10/2015 Satinder Meek MD abbvie 465 SANDRA vs humira [id number] 10/10/19 16 10/10/2015 Satinder Meek MD abbvie 465 SANDRA vs humira [id number] 10/10/19 16 10/10/2015 Satinder Meek MD abbvie 465 SANDRA vs humira [id number] 10/10/19 16 10/10/2015 Satinder Meek MD abbvie 465 SANDRA vs humira [id number] 10/10/19 16 10/10/2015 Satinder Meek MD fu [id number] 10/10/2015 10/10/2015 Satinder Meek MD fu [id number] 10/10/2015 10/10/2015 Satinder Meek MD fu [id number] 10/10/2015 10/10/2015 Satinder Meek MD fu [id number] 10/10/2015 10/10/2015 Satinder Meek MD fu [id number] 10/10/2015 10/10/2015 Satinder Meek MD fu [id number] 10/10/2015 10/10/2015 Satinder Meek MD Screen fail 4-465 [id number] 01/29/20 16 01/29/2016 Satinder Meek MD Screen fail M14-465 [id number] 01/29/20 16 01/29/2016 Satinder Meek MD Screen fail M14-465 [id number] 01/29/20 16 01/29/2016 Satinder Meek MD Screen fail M14-465 [id number] 01/29/20 16 01/29/2016 Satinder Meek MD Screen fail M14-465 [id number] 01/29/20 16 01/29/2016 Satinder Meek MD METHOTREXATE REFILL [id number] 04/15/2016 04/15/2016 Satinder Meek MD METHOTREXATE REFILL [id number] 04/15/2016 04/15/2016 Satinder Meek MD METHOTREXATE REFILL [id number] 04/15/2016 04/15/2016 Satinder Meek MD METHOTREXATE REFILL [id number] 04/15/2016 04/15/2016 Satinder Meek MD DEXA [id number] 05/11/2016 05/11/2016 Satinder Meek MD DEXA [id number] 05/11/2016 05/11/2016 Satinder Meek MD DEXA [id number] 05/11/2016 05/11/2016 [place] [address] Protocol. [id number] 05/22/2016 05/22/2016 [place] [address] Protocol. [id number] 05/22/2016 05/22/2016 Satinder Meek MD med refill [id number] 09/14/19 17 09/14/2016 Satinder Meek Procedures No Data Provided for This Section Assessment and Plan No Data Provided for This Section Plan of Care No Data Provided for This Section Social History Social History Date Source Social History ElementQualifiersDate Rep orted Tobacco Use: . Are you a:: former smoker , How long has it been since you last smoked?: > 10 years Oct 10, 2015 Marital Status: single. Oct 10, 2015 Caffeine: no. Oct 10, 2015 Exercise: yes. walking Oct 10, 2015 Alcohol: no. Oct 10, 2015 Occupation: . [employer] Oct 10, 2015 10/10/2015 Satinder Meek Family History No Data Provided for This Section Advance Directives No Data Provided for This Section Functional Status No Data Provided for This Section
--- OUTSIDE RECORDS SUMMARY | 2020-01-20 10:40 | XMS REPORT ---
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
--- OUTSIDE RECORDS SUMMARY | 2020-01-20 10:40 | XMS REPORT ---
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
--- OUTSIDE RECORDS SUMMARY | 2020-01-20 10:40 | XMS REPORT ---
Author Author GARFIELD Meek Organization [employer] Address Unknown Phone Unavailable Care Team Providers Care Fulling Mill Operator Name Role Phone Altaf Meek CP Unavailable Allergies No Known Allergies Problems Problem Type Condition Code Onset Dates Condition Statu s Problem Rheumatoid arthritis with rh eumatoid factor of multiple sites without organ or systems involvement M05.79 Active Problem alf current use of 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 Z79.89 9 Active Medications No Known Medications Results No Known Results Summary Purpose [employer] Submission
--- OUTSIDE RECORDS SUMMARY | 2020-01-20 10:40 | XMS REPORT ---
Author GARFIELD Aguilar Organization [employer] Address Unknown Phone Unavailable Care Team Providers Care Counselor Dormitory Name Role Phone Altaf Meek CP Unavailable Allergies No Known Allergies Problems Problem Type Condition Code Onset Dates Condition Statu s Problem Long-term (current) use of other medications - High Ri sk V58.69 Active Problem Rheumatoid arthritis 714.0 Active Medications No Known Medications Results No Known Results Summary Purpose [employer] Submission
--- OUTSIDE RECORDS SUMMARY | 2020-01-20 10:40 | XMS REPORT ---
Author Author GARFIELD Friedman [facility] [employer] Address Unknown Phone Unavailable Care Team Providers Care Effervescent Salts Compounder Name Role Phone Becca Friedman CP Unavailable Allergies, Adverse Reactions, Alerts Substance Reaction Event Type N.K.D.A. Info Not Available Non Drug Allergy Problems Problem Type Condition Code Onset Dates Condition Statu s Assessment Rheumatoid arthritis with rh eumatoid factor of multiple sites without organ or systems involvement M05.79 Active Problem Rheumatoid arthritis with rh eumatoid factor of multiple sites without organ or systems involvement M05.79 Active Assessment Encounter for long-term (current) use of other high-risk medications Z79.899 Active Medications Medication Code System Code Instructions Start Date End Date Status Dosage Aspir-81 [facility] 49246681141 81 MG Orally Once a day Act diana 1 tablet Atorvastatin Calcium [facility] 01318556910 80 MG Orally Once a day Active 1 tablet Methotrexate (Anti-Rheumatic) ND 79660279708 2.5 MG Orally q week January 14, 2016 Active 6 tablets Doxazosin Mesylate [facility] 60007550457 4 MG Orally Once a day Active 1 tablet Folic Acid [facility] 81760529193 1 MG Active TAKE 1 TA BLET BY MOUTH ONCE A DAY Metoprolol Succinate ER ND 32965080412 25 MG Orally Once a day Active 1 tablet Simponi Aria [facility] 17854310485 50 MG/4ML Intrav enous loading dose at week 0 4 and then q8wks Jul 19, 2018 Active 2mg/kg at 220 lb s (199.6mg) Vital Signs Date/Time: Jul 19, 2018 BMI 28.26 Index Weight 220.1 lbs Height 74 in Temperature 97.0 F Cardiac Monitoring Heart Rate 76 /min Blood Pressure Diastolic 84 mm Hg Blood Pressure Systolic 122 mm Hg Results No Known Results Summary Purpose [employer] Submission
--- OUTSIDE RECORDS SUMMARY | 2020-01-20 10:40 | XMS REPORT ---
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
--- OUTSIDE RECORDS SUMMARY | 2020-01-20 10:40 | XMS REPORT ---
Author Author GARFIELD Meek Organization [employer] Address Unknown Phone Unavailable Care Team Providers Care Court Officer Name Role Phone Altaf Meek CP Unavailable Allergies No Known Allergies Problems Problem Type Condition Code Onset Dates Condition Statu s Problem Rheumatoid arthritis with rh eumatoid factor of multiple sites without organ or systems involvement M05.79 Active Medications No Known Medications Results No Known Results Summary Purpose [employer] Submission
--- OUTSIDE RECORDS SUMMARY | 2020-01-20 10:40 | XMS REPORT ---
Author Author GARFIELD Friedman [facility] eClinicalWorks Address Unknown Phone Unavailable Care Team Providers Care Crossbow Maker Name Role Phone Becca Friedman Unavailable Allergies, Adverse Reactions, Alerts Substance Reaction Event Type N.K.D.A. Info Not Available Non Drug Allergy Problems Problem Type Condition Code Onset Dates Condition Statu s Problem Rheumatoid arthritis with rh eumatoid factor of multiple sites without organ or systems involvement M05.79 Active Problem shelter current use of 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 Z79.89 9 Active Assessment Rheumatoid arthritis with rh eumatoid factor of multiple sites without organ or systems involvement M05.79 Active Assessment Encounter for long-term (current) use of other high-risk medications Z79.899 Active Medications Medication Code System Code Instructions Start Date End Date Status Dosage Folic Acid [facility] 74175649330 1 MG Active TAKE 1 TA BLET BY MOUTH ONCE A DAY Methotrexate (Anti-Rheumatic) [facility] 31279945870 2.5 MG Orally q week Jul 20, 2018 Active 6 tablets Atorvastatin Calcium [facility] 52991209506 80 MG Orally Once a day Active 1 tablet Doxazosin Mesylate [facility] 50595719999 4 MG Orally Once a day Active 1 tablet Inflectra [facility] 25819821362 100 MG Intravenous Active as directed Aspir-81 [facility] 97186202451 81 MG Orally Once a day Act diana 1 tablet Vital Signs Date/Time: October 17, 2018 BMI 28.09 Index Weight 218.8 lbs Height 74 in Temperature 96.8 F Cardiac Monitoring Heart Rate 70 /min Blood Pressure Diastolic 80 mm Hg Blood Pressure Systolic 122 mm Hg Results Name Result Date Reference Range Unit Abnormali ty Flag CBC W/AUTO DIFF ----MONOCYTES 8.3 [id number] 4.0-13.0 % ----LYMPHOCYTES 24.1 20181017 19.0-48.0 % ----HEMOGLOBIN 14.7 20181017 13.0-17.0 G/DL ----HEMATOCRIT 41.2 54297054 37.0-49.0 % ----MCV 99.0 01277005 80.0-100.0 fL ----MCH 35.3 55755743 27.0-34.0 PG H ----MCHC 35.7 58643367 32.0-35.5 G/DL H ----PLATELET COUNT 196 20181017 130-400 K/UL ----RDW 12.9 14213970 11.0-15.0 % ----BASOPHILS 0.4 45897599 0.0-2.0 % ----WBC 8.4 94987522 4.0-11.0 K/UL ----NEUTROPHILS 64.0 94958588 40.0-74.0 % ----RBC 4.16 71569524 4.10-5.70 M/UL ----EOSINOPHILS 3.2 04063222 0.0-7.0 % C-REACTIVE PROTEIN ----C-REACTIVE PROTEIN 0.2 12238172 <0.5 MG/DL COMPREHENSIVE METABOLIC PANEL ----CALC A/G RATIO 1.8 71395011 1.0-2.6 RATIO ----CALC GLOBULIN 2.5 41249552 1.9-3.7 G/DL ----ALKALINE PHOSPHATASE 80 20181017 40-123 U/L ----BILIRUBIN, TOTAL 1.1 94079338 <=1.2 MG/DL ----CHLORIDE 105 29877039 95-107 MEQ/L ----ALT 25 20181017 5-50 U/L ----POTASSIUM 4.5 40798177 3.5-5.4 MEQ/L ----AST 27 20181017 9-50 U/L ----SODIUM 144 61130363 133-146 MEQ/L ----CALC BUN/CREAT 11 20181017 6-28 RATIO ---- eGFR NON- AMER. 64 20181017 >60 ML/MIN/1 .73 ----CALCIUM 9.7 32769948 8.5-10.5 MG/DL ----CARBON DIOXIDE 27 20181017 19-31 MEQ/L ----ALBUMIN 4.5 77303323 3.5-5.2 G/DL ----PROTEIN, TOTAL 7.0 20181017 6.1-8.3 G/DL ----GLUCOSE 103 20181017 70-99 MG/DL H ----BUN 14 20181017 8-23 MG/DL ----CREATININE 1.22 20181017 0.80-1.40 MG/DL ---- eGFR AMER. 74 20181017 >60 ML/MIN/1.73 SEDIMENTATION RATE ----SEDIMENTATION RATE 12 20181017 0-15 MM/HOUR Summary Purpose eClinicalWorks Submission
--- OUTSIDE RECORDS SUMMARY | 2020-01-20 10:40 | XMS REPORT ---
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
--- OUTSIDE RECORDS SUMMARY | 2020-01-20 10:40 | XMS REPORT ---
Author Author GARFIELD Meek Organization eClinicalWorks Address Unknown Phone Unavailable Care Team Providers Care Anthropology Department Chair Name Role Phone Altaf Meek CP Unavailable Allergies No Known Allergies Problems Problem Type Condition Code Onset Dates Condition Statu s Problem Rheumatoid arthritis with rh eumatoid factor of multiple sites without organ or systems involvement M05.79 Active Medications No Known Medications Results No Known Results Summary Purpose eClinicalWorks Submission
--- OUTSIDE RECORDS SUMMARY | 2020-01-20 10:40 | XMS REPORT ---
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
--- OUTSIDE RECORDS SUMMARY | 2020-01-20 10:40 | XMS REPORT ---
Author Author GARFIELD Meek Organization eClinicalWorks Address Unknown Phone Unavailable Care Team Providers Care Welfare Eligibility Worker Name Role Phone Altaf Meek CP Unavailable Allergies No Known Allergies Problems Problem Type Condition Code Onset Dates Condition Statu s Problem Rheumatoid arthritis with rh eumatoid factor of multiple sites without organ or systems involvement M05.79 Active Problem intermediate current use of 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 Z79.89 9 Active Medications No Known Medications Results No Known Results Summary Purpose eClinicalWorks Submission
--- OUTSIDE RECORDS SUMMARY | 2020-01-20 10:40 | XMS REPORT ---
Author GARFIELD Aguilar Organization eClinicalWorks Address Unknown Phone Unavailable Care Team Providers Care Pourer Bull Ladle Name Role Phone Altaf Meek CP Unavailable Allergies No Known Allergies Problems Problem Type Condition Code Onset Dates Condition Statu s Problem Long-term (current) use of other medications - High Ri sk V58.69 Active Assessment Long-term (current) use of other medications - High Ri sk V58.69 Active Problem Rheumatoid arthritis 714.0 Active Medications Medication Code System Code Instructions Start Date End Date Status Dosage Methotrexate (Anti-Rheumatic) [facility] 21617889677 2.5 MG Orally q week January 14, 2016 Active 4 tablets Folic Acid [facility] 21158067014 1 MG Orally Once a day Jun 10, 2017 J an 2017 Active 1 tablet Results No Known Results Summary Purpose eClinicalWorks Submission
--- OUTSIDE RECORDS SUMMARY | 2020-01-20 10:40 | XMS REPORT ---
Author Author GARFIELD Smith Organization eClinicalWorks Address Unknown Phone Unavailable Care Team Providers Care Science Instructor Name Role Phone Sarah Urszula CP Unavailable Allergies, Adverse Reactions, Alerts Substance Reaction Event Type N.K.D.A. 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.89 9 Active Assessment Immunocompromised state D89.9 Acti ve Assessment Rheumatoid arthritis with rh eumatoid factor of multiple sites without organ or systems involvement M05.79 Active Medications Medication Code System Code Instructions Start Date End Date Status Dosage Metoprolol Tartrate ND 94503056352 100 MG Orally Twice a day Active 1 tablet with food Folic Acid ND 37678650262 1 MG Active TAKE 1 TA BLET BY MOUTH ONCE A DAY Aspir-81 ND 26928748210 81 MG Orally Once a day Act diana 1 tablet Doxazosin Mesylate ND 37398085423 4 MG Orally Once a day Active 1 tablet Prednisone Taper ND 69077415107 5mg Orally once a day Jul 10, 2019 Jul 25, 2019 Active 3 tablets for 5 days, 2 tabl ets for 5 days and then 1 tablet for 5 days Methotrexate (Anti-Rheumatic) ND 86587659414 2.5 MG Orally q week Jul 20, 2018 Active 6 tablets Inflectra ND 24828390135 100 MG Intravenous Active as directed Rosuvastatin Calcium ND 65880811680 40 MG Orally Once a day Active 1 tablet Vital Signs Date/Time: Jul 10, 2019 BMI 31.32 Index Weight 224.6 lbs Height 71 in Temperature 99.0 F Cardiac Monitoring Heart Rate 92 /min Blood Pressure Diastolic 88 mm Hg Blood Pressure Systolic 118 mm Hg Results No Known Results Summary Purpose eClinicalWorks Submission
--- OUTSIDE RECORDS SUMMARY | 2020-01-20 10:40 | XMS REPORT ---
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
--- OUTSIDE RECORDS SUMMARY | 2020-01-20 10:40 | XMS REPORT ---
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
--- OUTSIDE RECORDS SUMMARY | 2020-01-20 10:40 | XMS REPORT ---
Author Author GARFIELD Friedman [facility] eClinicalWorks Address Unknown Phone Unavailable Care Team Providers Care Tank Truck Loader Name Role Phone Becca Friedman Unavailable Allergies, Adverse Reactions, Alerts Substance Reaction Event Type N.K.D.A. Info Not Available Non Drug Allergy Problems Problem Type Condition Code Onset Dates Condition Statu s Assessment Rheumatoid arthritis with rh eumatoid factor of multiple sites without organ or systems involvement M05.79 Active Assessment Encounter for long-term (current) use of other high-risk medications Z79.899 Active Problem Rheumatoid arthritis with rh eumatoid factor of multiple sites without organ or systems involvement M05.79 Active Assessment Need for prophylactic vaccination and in oculation against influenza Z23 Active Medications Medication Code System Code Instructions Start Date End Date Status Dosage Methotrexate (Anti-Rheumatic) [facility] 55852882876 2.5 MG Orally q week January 14, 2016 Active 6 tablets Doxazosin Mesylate [facility] 19449203251 4 MG Orally Once a day Active 1 tablet Folic Acid [facility] 69352733824 1 MG Orally Once a day Jun 10, 2017 Active 1 tablet Pravastatin Sodium [facility] 48886757623 80 MG Orally Once a day Active 1 tablet Vital Signs Date/Time: Jun 29, 2017 BMI 26.36 Index Weight 205.3 lbs Height 74 in Temperature 97.5 F Cardiac Monitoring Heart Rate 70 /min Blood Pressure Diastolic 88 mm Hg Blood Pressure Systolic 120 mm Hg Results Name Result Date Reference Range Unit Abnormali ty Flag SED RATE BY MODIFIED WESTERGREN ----Sedimentation Rate-Westergren 4 97053841 0-30 mm /hr C-REACTIVE PROTEIN ----C-Reactive Protein, Quant 7.2 63721973 0.0-4.9 mg/L H COMPREHENSIVE METABOLIC PANEL W/EGFR ----Bilirubin, Total 0.9 58793972 0.0-1.2 mg/dL ----A/G Ratio 1.9 20170629 1.2-2.2 ----AST (SGOT) 16 20170629 0-40 IU/L ----Alkaline Phosphatase, S 83 20170629 39-117 IU/L ----Carbon Dioxide, Total 24 20170629 18-29 mmol/L ----Chloride, Serum 99 20170629 96-106 mmol/L ----ALT (SGPT) 18 20170629 0-44 IU/L ----Potassium, Serum 4.4 20170629 3.5-5.2 mmol/L ----Sodium, Serum 141 20170629 134-144 mmol/L ----BUN/Creatinine Ratio 11 20170629 9-20 ----Protein, Total, Serum 7.3 20170629 6.0-8.5 g/dL ----Calcium, Serum 9.6 20170629 8.7-10.2 mg/dL ----Globulin, Total 2.5 20170629 1.5-4.5 g/dL ----Albumin, Serum 4.8 20170629 3.5-5.5 g/dL ----Glucose, Serum 110 20170629 65-99 mg/dL H ----BUN 14 20170629 6-24 mg/dL ----Creatinine, Serum 1.28 20170629 0.76-1.27 mg/dL H ----eGFR If NonAfricn Am 61 20170629 >59 mL/min/1.73 CBC (INCLUDES DIFF/PLT) ----MCHC 34.7 20170629 31.5-35.7 g/dL ----MCH 34.1 20170629 26.6-33.0 pg H ----Platelets 249 20170629 150-379 x10E3/uL ----RDW 13.2 25345544 12.3-15.4 % ----Immature Granulocytes 0 41989590 Not Estab. % ----Immature Grans (Abs) 0.0 06533730 0.0-0.1 x10E3/uL ----Lymphs 23 20170629 Not Estab. % ----Monocytes 9 20170629 Not Estab. % ----Neutrophils 65 20170629 Not Estab. % ----Neutrophils (Absolute) 5.6 20170629 1.4-7.0 x10E3/uL ----Hematocrit 44.4 65968845 37.5-51.0 % ----Lymphs (Absolute) 1.9 20170629 0.7-3.1 x10E3/uL ----MCV 98 20170629 79-97 fL H ----RBC 4.52 92998902 4.14-5.80 x10E6/uL ----Eos 3 20170629 Not Estab. % ----Basos 0 20170629 Not Estab. % ----Hemoglobin 15.4 20170629 12.6-17.7 g/dL ----Baso (Absolute) 0.0 20170629 0.0-0.2 x10E3/uL ----WBC 8.6 38478876 3.4-10.8 x10E3/uL ----Monocytes(Absolute) 0.8 94894964 0.1-0.9 x10E3/uL ----Eos (Absolute) 0.2 76289710 0.0-0.4 x10E3/uL Immunizations Vaccine Administration Date Flu Vaccine Jun 29, 2017 Summary Purpose eClinicalWorks Submission
--- OUTSIDE RECORDS SUMMARY | 2020-01-20 10:40 | XMS REPORT ---
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
--- OUTSIDE RECORDS SUMMARY | 2020-01-20 10:40 | XMS REPORT ---
Author Author GARFIELD Meek Organization eClinicalWorks Address Unknown Phone Unavailable Care Team Providers Care Brusher Tender Name Role Phone Altaf Meek CP Unavailable Allergies No Known Allergies Problems Problem Type Condition Code Onset Dates Condition Statu s Problem Rheumatoid arthritis with rh eumatoid factor of multiple sites without organ or systems involvement M05.79 Active Medications Medication Code System Code Instructions Start Date End Date Status Dosage Methotrexate (Anti-Rheumatic) [facility] 33922774119 2.5 MG Orally q week Jul 20, 2018 Active 6 tablets Results No Known Results Summary Purpose eClinicalWorks Submission
--- OUTSIDE RECORDS SUMMARY | 2020-01-20 10:40 | XMS REPORT ---
Author Author GARFIELD Meek Organization eClinicalWorks Address Unknown Phone Unavailable Care Team Providers Care Seaweed Harvester Name Role Phone Altaf Meek CP Unavailable Allergies No Known Allergies Problems Problem Type Condition Code Onset Dates Condition Statu s Problem Rheumatoid arthritis with rh eumatoid factor of multiple sites without organ or systems involvement M05.79 Active Medications No Known Medications Results No Known Results Summary Purpose eClinicalWorks Submission
--- OUTSIDE RECORDS SUMMARY | 2020-01-20 10:41 | XMS REPORT ---
Author Author GARFIELD Olivas [facility] eClinicalWorks Address Unknown Phone Unavailable Care Team Providers Care Merchandise Examiner Name Role Phone Ina Olivas CP Unavailable Allergies, Adverse Reactions, Alerts Substance Reaction Event Type N.K.D.A. 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 Z79.89 9 Active Assessment Rheumatoid arthritis with rh eumatoid factor of multiple sites without organ or systems involvement M05.79 Active Medications Medication Code System Code Instructions Start Date End Date Status Dosage Rosuvastatin Calcium ND 03086314924 40 MG Orally Once a day Active 1 tablet Metoprolol Tartrate ND 84203326572 100 MG Orally Twice a day Active 1 tablet with food Folic Acid ND 72776461628 1 MG Active TAKE 1 TA BLET BY MOUTH ONCE A DAY Terbinafine HCl ND 11483650696 250 MG Orally Once a day Active 1 tablet Aspir-81 ND 04657839048 81 MG Orally Once a day Act diana 1 tablet Methotrexate (Anti-Rheumatic) [facility] 0 2.5 MG orally q week Jul Active 8 tablets PredniSONE ND 72671555267 5 MG Orally Once a day Sep 12, 2019 Active 1 tablet Inflectra ND 36310516115 100 MG Intravenous Active as directed Doxazosin Mesylate ND 91715936671 4 MG Orally Once a day Active 1 tablet Vital Signs Date/Time: November 09, 2019 BMI 27.64 Index Weight 215.3 lbs Height 74 in Temperature 97.6 F Cardiac Monitoring Heart Rate 64 /min Blood Pressure Diastolic 62 mm Hg Blood Pressure Systolic 100 mm Hg Results Name Result Date Reference Range Unit Abnormali ty Flag CBC W/AUTO DIFF ----MONOCYTES 3.3 93948330 4.0-12.0 % L ----LYMPHOCYTES 10.2 30247761 20.0-45.0 % L ----HEMOGLOBIN 13.3 09933190 13.5-17.0 G/DL L ----HEMATOCRIT 38.6 94142864 38.0-50.0 % ----MCV 99.2 47120919 80.0-99.0 fL H ----MCH 34.2 03851061 25.0-34.0 PG H ----MCHC 34.5 83484237 31.0-36.0 G/DL ----PLATELET COUNT 210 85351160 130-400 K/UL ----RDW 13.5 23631574 11.5-15.0 % ----BASOPHILS 0.2 22471588 0.0-2.0 % ----WBC 5.2 02297000 3.5-10.0 K/UL ----NEUTROPHILS 84.4 19898535 40.0-75.0 % H ----RBC 3.89 23974860 4.30-5.70 M/UL L ----EOSINOPHILS 1.9 31918524 0.0-7.0 % C-REACTIVE PROTEIN ----C-REACTIVE PROTEIN 2.5 14666694 <0.5 MG/DL H COMPREHENSIVE METABOLIC PANEL ----CALC A/G RATIO 1.5 34376770 1.0-2.6 RATIO ----CALC GLOBULIN 2.9 78520022 1.9-3.7 G/DL ----ALKALINE PHOSPHATASE 56 51415123 40-123 U/L ----BILIRUBIN, TOTAL 0.8 51322738 <=1.2 MG/DL ----CHLORIDE 97 78851348 95-107 MEQ/L ----ALT 42 51811043 5-50 U/L ----POTASSIUM 4.4 34257659 3.5-5.4 MEQ/L ----AST 41 10653474 9-50 U/L ----SODIUM 138 11587118 133-146 MEQ/L ----CALC BUN/CREAT 13 05268446 6-28 RATIO ---- eGFR NON- AMER. 78 20191109 >60 ML/MIN/1 .73 ----CALCIUM 9.4 24247904 8.5-10.5 MG/DL ----CARBON DIOXIDE 28 20191109 19-31 MEQ/L ----ALBUMIN 4.3 20191109 3.5-5.2 G/DL ----PROTEIN, TOTAL 7.2 20191109 6.1-8.3 G/DL ----GLUCOSE 132 20191109 70-99 MG/DL H ----BUN 13 20191109 8-23 MG/DL ----CREATININE 1.02 64942682 0.80-1.40 MG/DL ---- eGFR AMER. 91 20191109 >60 ML/MIN/1.73 SEDIMENTATION RATE ----SEDIMENTATION RATE 43 66853248 0-15 MM/HOUR H Summary Purpose eClinicalWorks Submission
--- OUTSIDE RECORDS SUMMARY | 2020-01-20 10:41 | XMS REPORT ---
Author GARFIELD Aguilar [facility] eClinicalWorks Address Unknown Phone Unavailable Care Team Providers Care Regional Loss Prevention Manager Name Role Phone Altaf Meek CP Unavailable Encounters Encounter Location Date Unknown Altaf Meek MD December 22, 2013 Refill- MTX Altaf Meek MD March 12, 2014 [place] [id number] [place] Altaf Meek MD May 28, 2014 [email or web address] PE Altaf Meek MD Apr 30, 2014 Treatment update Altaf Meek MD December 24, 2013 BILLING Altaf Meek MD December 25, 2013 Research Altaf Meek MD January 15, 2014 [email or web address] [id number] SANDRA vs humira Altaf Meek MD Oct 10, 2015 Problems Problem Type Condition ICD-9 Code Onset Dates Condition Statu s Problem Long-term (current) use of other medications - High Ri sk V58.69 Active Problem Rheumatoid arthritis 714.0 Active Medications Medication Code System Code Instructions Start Date End Date Status Dosage Folic Acid [facility] [address]-06 1 MG Orally Once a day Oct 10 16 January 08, 2016 Active 1 tablet Methotrexate [facility] [address]-66 2.5 MG Orally q weeks Oct 10, 2015 Active four tabs Social History Social History Element Qualifiers Date Reported Tobacco Use: . Are you a:: former smoke r , How long has it been since you last smoked?: > 10 years Oct 10, 2015 Marital Status: single. Oct 10, 2015 Caffeine: no. Oct 10, 2015 Exercise: yes. walking Oct 10, 2015 Alcohol: no. Oct 10, 2015 Occupation: . [employer] Oct 10, 2015 Summary Purpose eClinicalWorks Submission
--- OUTSIDE RECORDS SUMMARY | 2020-01-20 10:41 | XMS REPORT ---
Author Author GARFIELD Olivas [facility] eClinicalWorks Address Unknown Phone Unavailable Care Team Providers Care Hammer Fitter Name Role Phone Ina Olivas CP Unavailable Allergies, Adverse Reactions, Alerts Substance Reaction Event Type N.K.D.A. Info Not Available Non Drug Allergy Problems Problem Type Condition Code Onset Dates Condition Statu s Assessment Encounter for screening for other infect ious and parasitic diseases Z11.8 Active Assessment Encounter for screening for other bacterial diseases Z 11.2 Active Assessment Encounter for screening for other viral diseases Z11.5 9 Active Assessment Encounter for screening for infectious and parasitic diseases, unspecified Z11.9 Active Problem Rheumatoid arthritis with rh eumatoid factor of multiple sites without organ or systems involvement M05.79 Active Problem sql server consultant 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 of 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 Z79.89 9 Active Assessment sql server consultant current use of 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 Z79.89 9 Active Assessment Encounter for screening for respiratory tuberculosis Z 11.1 Active Assessment Rheumatoid arthritis with rh eumatoid factor of multiple sites without organ or systems involvement M05.79 Active Assessment Shoulder pain M25.519 Active Medications Medication Code System Code Instructions Start Date End Date Status Dosage Metoprolol Tartrate [facility] 22301879746 100 MG Orally Twice a day Active 1 tablet with food Methotrexate (Anti-Rheumatic) [facility] 52110896324 2.5 MG 9 q week De 2017 Active 8 tablets PredniSONE ND 20818560733 5 MG Orally Once a day Sep 12, 2019 Active 1 tablet Aspir-81 ND 11165994609 81 MG Orally Once a day Act diana 1 tablet Doxazosin Mesylate ND 84997621410 4 MG Orally Once a day Active 1 tablet Inflectra ND 55863813585 100 MG Intravenous q8 weeks Active 5mg/kg Prednisone Taper ND 19269168862 5mg Orally once a day Aug 23, 2019 Active 3 tablets for 5 days, 2 tablets for 5 days and then 1 tablet for 5 days Folic Acid [facility] 16949238074 1 MG Active TAKE 1 TA BLET BY MOUTH ONCE A DAY Rosuvastatin Calcium [facility] 41005358466 40 MG Orally Once a day Active 1 tablet Vital Signs Date/Time: Sep 12, 2019 BMI 27.96 Index Weight 217.8 lbs Height 74 in Temperature 97.4 F Cardiac Monitoring Heart Rate 87 /min Blood Pressure Diastolic 83 mm Hg Blood Pressure Systolic 145 mm Hg Results Name Result Date Reference Range Unit Abnormali ty Flag COMPREHENSIVE METABOLIC PANEL ----CALCIUM 9.3 20190912 8.5-10.5 MG/DL ----CARBON DIOXIDE 24 20190912 19-31 MEQ/L ----ALT 15 20190912 5-50 U/L ----CREATININE 1.19 20190912 0.80-1.40 MG/DL ----AST 19 20190912 9-50 U/L ---- eGFR AMER. 75 20190912 >60 ML/MIN/1.73 ----ALKALINE PHOSPHATASE 69 20190912 40-123 U/L ---- eGFR NON- AMER. 65 20190912 >60 ML/MIN/1 .73 ----BILIRUBIN, TOTAL 1.2 20190912 <=1.2 MG/DL ----CALC BUN/CREAT 11 20190912 6-28 RATIO ----CALC A/G RATIO 1.6 20190912 1.0-2.6 RATIO ----SODIUM 138 20190912 133-146 MEQ/L ----CALC GLOBULIN 2.7 20190912 1.9-3.7 G/DL ----POTASSIUM 3.9 20190912 3.5-5.4 MEQ/L ----ALBUMIN 4.2 20190912 3.5-5.2 G/DL ----GLUCOSE 104 20190912 70-99 MG/DL H ----CHLORIDE 99 20190912 95-107 MEQ/L ----BUN 13 20190912 8-23 MG/DL ----PROTEIN, TOTAL 6.9 20190912 6.1-8.3 G/DL COCCIDIOIDES IMMITIS AB BY ID ----COCCIDIOIDES IMMITIS AB BY ID None Detected [id number] None Detec leah QUANTIFERON TB GOLD ---- NIL 0.01 20190912 IU/ML ----QUANTIFERON TB GOLD PLUS NEGATIVE 20190912 NEGATIVE ---- TB1-NIL 0.00 41821209 <0.35 IU/ML ---- TB2-NIL 0.00 82974264 <0.35 IU/ML ---- MITOGEN-NIL 0.76 40622112 IU/ML HISTOPLASMA SPP. AB BY ID ----HISTOPLASMA SPP. AB BY ID None Detected [id number] None Detected CBC W/AUTO DIFF ----MCH 34.1 [id number] 27.0-34.0 PG H ----MCV 97.5 30662612 80.0-100.0 fL ----HEMATOCRIT 38.9 10117814 37.0-49.0 % ----HEMOGLOBIN 13.6 28939391 13.0-17.0 G/DL ----NEUTROPHILS 78.1 51819138 40.0-74.0 % H ----RDW 13.1 74759961 11.0-15.0 % ----MCHC 35.0 68578072 32.0-35.5 G/DL ----EOSINOPHILS 2.3 80435705 0.0-7.0 % ----BASOPHILS 0.0 15518546 0.0-2.0 % ----PLATELET COUNT 176 87185321 130-400 K/UL ----RBC 3.99 61508670 4.10-5.70 M/UL L ----WBC 6.1 15294545 4.0-11.0 K/UL ----LYMPHOCYTES 14.4 36478940 19.0-48.0 % L ----MONOCYTES 5.2 77199503 4.0-13.0 % C-REACTIVE PROTEIN ----C-REACTIVE PROTEIN 2.9 86048198 <0.5 MG/DL H HEPATITIS PANEL ----INTERPRETATION HEPATITIS C: (NOTE) 20190912 ----INTERPRETATION HEPATITIS B: (NOTE) 20190912 ----INTERPRETATION HEPATITIS A: (NOTE) 20190912 ----HEPATITIS C ANTIBODY NON-REACTIVE 20190912 NON-REACTIVE ----HEPATITIS B SURFACE AB NON-REACTIVE 20190912 NON-REACTIVE ----HEP B CORE TOTAL AB NON-REACTIVE 20190912 NON-REACTIVE ----HEPATITIS B SURF AG NON-REACTIVE 20190912 NON-REACTIVE ----HEPATITIS A TOTAL AB NON-REACTIVE 20190912 NON-REACTIVE SEDIMENTATION RATE ----SEDIMENTATION RATE 80 20190912 0-15 MM/HOUR H Summary Purpose eClinicalWorks Submission
--- OUTSIDE RECORDS SUMMARY | 2020-01-20 10:41 | XMS REPORT ---
Author Author GARFIELD Meek [facility] eClinicalWorks Address Unknown Phone Unavailable Care Team Providers Care Business Taxes Specialist Name Role Phone Altaf Meek CP Unavailable Encounters Encounter Location Date Treatment update Altaf Meek MD December 24, 2013 BILLING Altaf Meek MD December 25, 2013 Problems Problem Type Condition ICD-9 Code Onset Dates Condition Statu s Problem Long-term (current) use of other medications - High Ri sk V58.69 Active Problem Rheumatoid arthritis 714.0 Active Social History Social History Element Qualifiers Date Reported Tobacco Use: . Are you a:: former smoke r , How long has it been since you last smoked?: > 10 years December 22, 2013 Marital Status: single. December 22, 2013 Caffeine: no. December 22, 2013 Exercise: yes. walking December 22, 2013 Alcohol: no. December 22, 2013 Occupation: . [employer] December 22, 2013 Summary Purpose eClinicalWorks Submission
--- OUTSIDE RECORDS SUMMARY | 2020-01-20 10:41 | XMS REPORT ---
Author Author GARFIELD Meek [facility] eClinicalWorks Address Unknown Phone Unavailable Care Team Providers Care Senior It Auditor Name Role Phone Altaf Meek CP Unavailable Encounters Encounter Location Date Unknown Altaf Meek MD December 22, 2013 Refill- MTX Altaf Meek MD March 12, 2014 Rigoberto [id number] SF Altaf Meek MD May 28, 2014 actemra PE Altaf Meek MD Apr 30, 2014 Treatment update Altaf Meek MD December 24, 2013 BILLING Altaf Meek MD December 25, 2013 Research Altaf Meek MD January 15, 2014 Screen fail [id number] Altaf Meek MD January 29, 2016 abbvie 465 SANDRA vs humira Altaf Meek MD Oct 10, 2015 fu Altaf Meek MD Oct 10, 2015 Problems [...]
--- OUTSIDE RECORDS SUMMARY | 2020-01-20 10:41 | XMS REPORT ---
Author GARFIELD Aguilar [facility] eClinicalWorks Address Unknown Phone Unavailable Care Team Providers Care Geospatial Technologist Name Role Phone Altaf Meek Unavailable Encounters Encounter Location Date Unknown Altaf Meek MD December 22, 2013 Refill- MTX Altaf Meek MD March 12, 2014 Treatment update Altaf Meek MD December 24, 2013 BILLING Altaf Meek MD December 25, 2013 Research Altaf Meek MD January 15, 2014 Problems Problem Type Condition ICD-9 Code Onset Dates Condition Statu s Problem Long-term (current) use of other medications - High Ri sk V58.69 Active Problem Rheumatoid arthritis 714.0 Active Medications Medication Code System Code Instructions Start Date End Date Status Dosage Methotrexate Unknown 0 2.5mg Orally Once a week January 17 4 May 17, 2014 Active take 6 pills once weekly Social History Social History Element Qualifiers Date [...]
--- OUTSIDE RECORDS SUMMARY | 2020-01-20 10:41 | XMS REPORT ---
Author Author GARFIELD Meek Organization eClinicalWorks Address Unknown Phone Unavailable Care Team Providers Care Member Service Specialist Name Role Phone Altaf Meek CP Unavailable Allergies No Known Allergies Problems Problem Type Condition Code Onset Dates Condition Statu s Problem Rheumatoid arthritis with rh eumatoid factor of multiple sites without organ or systems involvement M05.79 Active Problem [facility] current use of 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 Z79.89 9 Active Medications No Known Medications Results No Known Results Summary Purpose eClinicalWorks Submission
--- OUTSIDE RECORDS SUMMARY | 2020-01-20 10:41 | XMS REPORT ---
Author Author GARFIELD Meek Organization eClinicalWorks Address Unknown Phone Unavailable Care Team Providers Care Fish Bait Processing Supervisor Name Role Phone Altaf Meek CP Unavailable Allergies No Known Allergies Problems Problem Type Condition Code Onset Dates Condition Statu s Problem Rheumatoid arthritis with rh eumatoid factor of multiple sites without organ or systems involvement M05.79 Active Medications No Known Medications Results No Known Results Summary Purpose eClinicalWorks Submission
--- OUTSIDE RECORDS SUMMARY | 2020-01-20 10:41 | XMS REPORT ---
Author Author GARFIELD Villa [facility] eClinicalWorks Address Unknown Phone Unavailable Care Team Providers Care Asset Analyst Name Role Phone Emmy Villa CP Unavailable Allergies, Adverse Reactions, Alerts Substance Reaction Event Type N.K.D.A. Info Not Available Non Drug Allergy Problems Problem Type Condition Code Onset Dates Condition Statu s Problem Rheumatoid arthritis with rh eumatoid factor of multiple sites without organ or systems involvement M05.79 Active Problem [facility] current use of 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 Z79.89 9 Active Assessment Rheumatoid arthritis with rh eumatoid factor of multiple sites without organ or systems involvement M05.79 Active Medications Medication Code System Code Instructions Start Date End Date Status Dosage Aspir-81 [facility] 25285092818 81 MG Orally Once a day Act diana 1 tablet Methotrexate (Anti-Rheumatic) [facility] 50404938926 2.5 MG Orally q week Jul 20, 2018 Active 6 tablets Folic Acid [facility] 31922382291 1 MG Active TAKE 1 TA BLET BY MOUTH ONCE A DAY Doxazosin Mesylate ND 73048942715 4 MG Orally Once a day Active 1 tablet Metoprolol Tartrate ND 77561190182 100 MG Orally Twice a day Active 1 tablet with food Rosuvastatin Calcium ND 69556312207 40 MG Orally Once a day Active 1 tablet Inflectra [facility] 54294348627 100 MG Intravenous Active as directed Vital Signs Date/Time: Mar 27, 2019 BMI 29.41 Index Weight 229.1 lbs Height 74 in Temperature 97.8 F Cardiac Monitoring Heart Rate 72 /min Blood Pressure Diastolic 80 mm Hg Blood Pressure Systolic 112 mm Hg Results No Known Results Summary Purpose eClinicalWorks Submission
--- OUTSIDE RECORDS SUMMARY | 2020-01-20 10:41 | XMS REPORT ---
Author GARFIELD Aguilar [facility] eClinicalWorks Address Unknown Phone Unavailable Care Team Providers Care Jury Consultant Name Role Phone Altaf Meek Unavailable Encounters Encounter Location Date Unknown Altaf Meek MD December 22, 2013 Treatment update Altaf Meek MD December 24, [...] 0 2.5mg Orally Once a week January 17May 17, 2014 Active take 6 pills once [...]
--- OUTSIDE RECORDS SUMMARY | 2020-01-20 10:41 | XMS REPORT ---
Author Author GARFIELD Meek Organization eClinicalWorks Address Unknown Phone Unavailable Care Team Providers Care Passenger Flagman Name Role Phone Altaf Meek CP Unavailable Allergies No Known Allergies Problems Problem Type Condition Code Onset Dates Condition Statu s Problem Rheumatoid arthritis with rh eumatoid factor of multiple sites without organ or systems involvement M05.79 Active Problem [facility] current use of 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 Z79.89 9 Active Medications No Known Medications Results No Known Results Summary Purpose eClinicalWorks Submission
--- OUTSIDE RECORDS SUMMARY | 2020-01-20 10:41 | XMS REPORT | Continuity of Care Document ---
Author Author [facility] Organization [facility] Address 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 Role Phone MIGUELITO SILVA PCP MIGUELITO SILVA Attphys Unavailable Kerri BARRETT Attphys Unavailable Kerri BARRETT Admphys Unavailable Payers Payer Name Policy Type Policy Number Effective Date Expiration Date Raven Crandall Medicare Complete [id number] 2017 00:00:00 [facility] Problems Condition Name Condition Details Condition Category Status Onset Date Resolution Date Last Treatment Date Treating Clinician Comments Source Chest pain Chest pain Problem Active C [facility] Hypertension Hypertension Problem Active [facility] Long-term (current) use of other medications - High Ri sk Long-term (current) use of other medications - High Risk Active Problem 06/12/2017 Satinder Rodriguezer Problem Active 2017-06-12 02:46:16 Shamika Cantu Rheumatoid arthritis Rheu matoid arthritis Active Problem 06/12/2017 Satinder Meek Problem Active 2017-06-12 02:46:16 Shamika Cantu 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 Rheumatoid arthr itis with rheumatoid factor of multiple sites without organ or systems involvement Active Problem 01/06/2020 Satinder Rodriguezer Problem Active 2020-01-06 02:45:39 Shamika Cantu Need for prophylactic vaccination and inoculation agai nst influenza Need for prophylactic vaccination and inoculation against influenza Active Diagnosis 07/06/2017 Satinder Meek Diagnosis Active 2017-07-06 03:47:49 Shamika 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 Problem 01/06/2020 Satinder Rodriguezer Problem Active 2020-01-06 02:45:39 Henrysuzie Arceann Encounter for screening for other infectious and sumi itic diseases Encounter for screening for other infectious and parasitic diseases Active Diagnosis 09/21/2019 Satinder Meek Diagnosis Active 2019-09-21 03:46:42 [facility] Encounter for screening for other bacterial diseases Encounter for screening for other bacterial diseases Active Diagnosis 09/21/2019 Satinder Meek Diagnosis Active 2019-09-21 03:46:42 [facility] Encounter for screening for other viral diseases Encounter for screening for other viral diseases Active Diagnosis 09/21/2019 Satinder Meek Diagnosis Active 2019-09-21 03:46:42 [facility] Encounter for screening for infectious and parasitic d iseases, unspecified Encounter for screening for infectious and parasitic diseases, unspecified Active Diagnosis 09/21/2019 Satinder Meek Diagnosis Active 2019-09-21 03:46:42 [facility] Encounter for screening for respiratory tuberculosis Encounter for screening for respiratory tuberculosis Active Diagnosis 09/21/2019 Satinder Meek Diagnosis Active 2019-09-21 03:46:42 [facility] Shoulder pain Shou lder pain Active Diagnosis 09/21/2019 Satinder Meek Diagnosis Active 2019-09-21 03:46:42 [facility] Immunocompromised state Immu nocompromised state Active Problem 01/06/2020 Satinder Meek Problem Active 2020-01-06 02 :45:39 [facility] Allergies, Adverse Reactions, Alerts Allergy Name Allergy Type Status Severity Reaction(s) Onset Date Inacti ve Date Treating Clinician Comments Source AmyA. N.Leida.A. Active Info Not Available 2020-01-04 00:00:00 [facility] Social History Social Habit Start Date Stop Date Quantity Comments Source TobaccoUse: 2015-10-10 00:00:00 2015-10-10 00:00:00 [facility] Medications Ordered Medication Name Filled Medication Name Start Date Stop Da te Current Medication? Ordering Clinician Indication Dosage Frequency Signature (SIG) Comments Components Source Doxazosin Mesylate 2020-01-06 02:45:39 Yes Ina Olivas 1 tablet [facility] Aspir-81 2020-01-06 02:45:39 Yes Ina Olivas 1 tablet [facility] Folic Acid 2020-01-06 02:45:39 Yes Ina Olivas TAKE 1 TABLET BY MOUTH ONCE A DAY [facility] Inflectra 2020-01-06 02:45:39 Yes Ina tejeda s directed [facility] Rosuvastatin Calcium 2020-01-06 02:45:39 Yes Ina Olivas 1 tablet [facility] Metoprolol Tartrate 2020-01-06 02:45:39 Yes Ina Maravilla s [address] [facility] Terbinafine HCl 2020-01-06 02:45:39 Yes Ina Olivas 1 tablet [facility] PredniSONE 2019-12-19 00:00:00 Yes Ina Olivas 1 tablet [facility] Metoprolol Tartrate 2019-11-24 02:47:47 Yes Ina Maravilla s 1 tablet with food [facility] [place] PredniSONE 2019-09-12 00:00:00 Yes Ina Olivas [address] [facility] Prednisone Taper 2019-08-23 00:00:00 Yes Ina Olivas 3 tablets for 5 days, 2 tablets for 5 days and then 1 tablet for [address] [facility] Prednisone Taper 2019-07-10 00:00:00 Yes Urszula Smith 3 tablets for 5 days, 2 tablets for 5 days and then 1 tablet for 5 days [facility] Atorvastatin Calcium 2018-10-22 03:48:00 Yes Becca Friedman [address] [facility] Metoprolol Succinate ER 2018-07-20 03:47:42 Yes Becca Camejo allace 1 tablet [facility] Methotrexate (Anti-Rheumatic) 2018-07-20 00:00:00 Yes Mi sty Horn 6 tablets [facility] Methotrexate (Anti-Rheumatic) 2018-07-20 00:00:00 Yes Consuelo renaldo Olivas 10 tablets [facility] Simponi Aria 2018-07-19 00:00:00 Yes Becca Rodriguezace 2mg/kg at 220 lbs (199.6mg) [facility] Pravastatin Sodium 2017-07-06 03:47:49 Yes Becca Friedman [address] [facility] Folic Acid 2017-06-10 00:00:00 Yes Becca Friedman [address] [facility] Folic Acid 2016-09-14 00:00:00 Yes Altaf Rodriguezer 1 tablet [facility] Methotrexate (Anti-Rheumatic) 2016-01-14 00:00:00 Yes Rader Friedman [address] [facility] Methotrexate (Anti-Rheumatic) 2016-01-14 00:00:00 Yes Flora Meek 4 tablets [facility] Doxazosin Mesylate 2015-10-15 03:52:44 Yes Altaf Meek 1 tablet [facility] Pravastatin Sodium 2015-10-15 03:52:44 Yes Altaf Meek 1 tablet [facility] Folic Acid 2015-10-10 00:00:00 Yes Altaf Rodriguezer 1 tablet [facility] Methotrexate 2015-10-10 00:00:00 Yes Altaf Meek four tabs [facility] Tramadol 2014-02-23 02:56:00 Yes Oscar Mullins one t ab [facility] Ciprofloxacin 2014-02-23 02:56:00 Yes Oscar Mullins 5 ml [facility] Methotrexate 2014-01-17 00:00:00 Yes Altaf Meek take 6 pills once weekly [facility] Methotrexate 2013-12-24 00:00:00 Yes Oscarkanchan Mckeone 5 tablets [facility] Folic Acid 2012-10-21 00:00:00 Yes Oscar Mullins as directed [facility] Aspirin 81 Mg Tab.chew Aspirin 81 Mg Tab.chew Yes 81 Daily [facility] Atorvastatin Calcium 40 Mg Tablet Atorvastatin Calcium 40 Mg Tablet Yes 40 Bedtime [facility] Doxazosin Mesylate 2 Mg Tablet Doxazosin Mesylate 2 Mg Tablet Yes 1 Daily [facility] Ibuprofen 200 Mg Capsule Ibuprofen 200 Mg Capsule Yes 600 Three Times Daily With Meals [facility] Metoprolol Succinate 25 Mg Tab.er.24h Metoprolol Succinate 25 Mg Ta b.er.24h Yes 25 Daily [facility] Pantoprazole Sodium (Protonix) 40 Mg Tablet. Pantopr azole Sodium (Protonix) 40 Mg Tablet. Yes 40 Daily [facility] Carvedilol (Coreg) 3.125 Mg Tab, 3.125 Mg Oral Carvedi lol (Coreg) 3.125 Mg Tab, 3.125 Mg Oral 2017-10-23 00:00:00 No 3.125 Twice A Da y [facility] Doxazosin Mesylate 4 Mg Tablet, 4 Mg Oral Doxazosin Me sylate 4 Mg Tablet, 4 Mg Oral 2017-10-21 00:00:00 No 4 Bedtime [facility] Pravastatin Sodium 20 Mg Tablet, 20 Mg Oral Pravastati n Sodium 20 Mg Tablet, 20 Mg Oral 2017-10-21 00:00:00 No 20 Daily [facility] Vital Signs Vital Name Observation Time Observation Value Comments Source Weight 2020-01-04 13:45:00 [facility] Height 2020-01-04 13:45:00 [facility] Temperature Oral (F) 2020-01-04 13:45:00 99.3 F [facility] Heart Rate 2020-01-04 13:45:00 [facility] Diastolic (mm Hg) 2020-01-04 13:45:00 [facility] Systolic (mm Hg) 2020-01-04 13:45:00 [facility] Weight 2019-11-09 13:30:00 [facility] Height 2019-11-09 13:30:00 [facility] Temperature Oral (F) 2019-11-09 13:30:00 97.6 F [facility] Heart Rate 2019-11-09 13:30:00 [facility] Diastolic (mm Hg) 2019-11-09 13:30:00 [facility] Systolic (mm Hg) 2019-11-09 13:30:00 [facility] Weight 2019-09-12 14:00:00 [facility] Height 2019-09-12 14:00:00 [facility] Temperature Oral (F) 2019-09-12 14:00:00 97.4 F [facility] Heart Rate 2019-09-12 14:00:00 [facility] Diastolic (mm Hg) 2019-09-12 14:00:00 [facility] Systolic (mm Hg) 2019-09-12 14:00:00 [facility] Weight 2019-07-10 15:45:00 [facility] Height 2019-07-10 15:45:00 [facility] Temperature Oral (F) 2019-07-10 15:45:00 99.0 F [facility] Heart Rate 2019-07-10 15:45:00 [facility] Diastolic (mm Hg) 2019-07-10 15:45:00 [facility] Systolic (mm Hg) 2019-07-10 15:45:00 [facility] Weight 2019-05-22 14:15:00 [facility] Height 2019-05-22 14:15:00 [facility] Temperature Oral (F) 2019-05-22 14:15:00 97.4 F [facility] Heart Rate 2019-05-22 14:15:00 [facility] Diastolic (mm Hg) 2019-05-22 14:15:00 [facility] Systolic (mm Hg) 2019-05-22 14:15:00 [facility] Weight 2019-03-27 13:30:00 [facility] Height 2019-03-27 13:30:00 [facility] Temperature Oral (F) 2019-03-27 13:30:00 97.8 F [facility] Heart Rate 2019-03-27 13:30:00 [facility] Diastolic (mm Hg) 2019-03-27 13:30:00 [facility] Systolic (mm Hg) 2019-03-27 13:30:00 [facility] Weight 2018-10-17 16:00:00 [facility] Height 2018-10-17 16:00:00 [facility] Temperature Oral (F) 2018-10-17 16:00:00 96.8 F [facility] Heart Rate 2018-10-17 16:00:00 [facility] Diastolic (mm Hg) 2018-10-17 16:00:00 [facility] Systolic (mm Hg) 2018-10-17 16:00:00 [facility] Weight 2018-07-19 14:00:00 [facility] Height 2018-07-19 14:00:00 [facility] Temperature Oral (F) 2018-07-19 14:00:00 97.0 F [facility] Heart Rate 2018-07-19 14:00:00 [facility] Diastolic (mm Hg) 2018-07-19 14:00:00 [facility] Systolic (mm Hg) 2018-07-19 14:00:00 [facility] Weight 2017-06-29 15:45:00 [facility] Height 2017-06-29 15:45:00 [facility] Temperature Oral (F) 2017-06-29 15:45:00 97.5 F [facility] Heart Rate 2017-06-29 15:45:00 [facility] Diastolic (mm Hg) 2017-06-29 15:45:00 [facility] Systolic (mm Hg) 2017-06-29 15:45:00 [facility] Weight 2015-10-10 17:00:00 [facility] Height 2015-10-10 17:00:00 [facility] Temperature Oral (F) 2015-10-10 17:00:00 97.4 F [facility] Weight 2013-12-22 15:30:00 [facility] Height 2013-12-22 15:30:00 [facility] Temperature Oral (F) 2013-12-22 15:30:00 97.2 F [facility] Heart Rate 2013-12-22 15:30:00 [facility] Diastolic (mm Hg) 2013-12-22 15:30:00 [facility] Systolic (mm Hg) 2013-12-22 15:30:00 [facility] Procedures Procedure Date / Time Performed Performing Clinician [facility] e Computed tomography of chest with contrast 2017-10-21 00:00: 00 LESLEY KOHLI [facility] L HRT ARTERY/VENTRICLE ANGIO 2017-09-29 00:00:00 LESLEY KOHLI [facility] Encounters Start Date/Time End Date[facility] ID Source 2020-01-04 08:45:00 2020-01-04 08:45:00 Outpatient Altaf Meek MD [place] [id number] Satinder Meek MD 2019-12-19 14:18:00 2019-12-19 14:18:00 Outpatient Altaf MADDOX [id number] Satinder Meek MD 2019-12-19 14:03:00 2019-12-19 14:03:00 Outpatient Altaf Meek MD PA [id number] Satinder Meek MD 2019-12-19 09:13:00 2019-12-19 09:13:00 Outpatient Altaf Meek MD PA [id number] Satinder Meek MD 2019-12-08 11:09:00 2019-12-08 11:09:00 Outpatient Altaf Meek MD PA [id number] Satinder Meek MD 2019-12-04 10:49:00 2019-12-04 10:49:00 Outpatient Altaf Meek MD PA [id number] Satinder Meek MD 2019-11-09 08:30:00 2019-11-09 08:30:00 Outpatient Altaf Meek MD PA [id number] Satinder Meek MD 2019-09-12 08:00:00 2019-09-12 08:00:00 Outpatient Altaf MADDOX [id number] Satinder Meek MD 2019-08-23 11:33:00 2019-08-23 11:33:00 Outpatient MD VARSHA Whittaker MD [place] [id number] Satinder Meek MD 2019-07-10 10:45:00 2019-07-10 10:45:00 Outpatient Altaf Meek MD PA [id number] Satinder Meek MD 2019-07-10 07:42:00 2019-07-10 07:42:00 Outpatient MD VARSHA Whittaker MD PA [id number] Satinder Meek MD 2019-06-14 12:08:00 2019-06-14 12:08:00 Outpatient MD VARSHA Whittaker MD PA [id number] Satinder Meek MD 2019-05-22 08:15:00 2019-05-22 08:15:00 Outpatient Altaf Meek MD PA [id number] Satinder Meek MD 2019-03-27 09:07:00 2019-03-27 09:07:00 Outpatient Altaf Meek MD PA [id number] Satinder Meek MD 2019-03-27 08:30:00 2019-03-27 08:30:00 Outpatient Altaf MADDOX [id number] Satinder Meek MD 2019-03-22 17:18:00 2019-03-22 17:18:00 Outpatient Altaf MADDOX [id number] Satinder Meek MD 2019-01-17 21:10:00 2019-01-17 21:10:00 Outpatient Altaf Meek MD PA [id number] Satinder eMek MD 2019-01-11 11:19:00 2019-01-11 11:19:00 Outpatient Altaf Meek MD PA [id number] Satinder Meek MD 2018-11-24 08:36:00 2018-11-24 08:36:00 Outpatient Altaf Meek MD PA [id number] Satinder Meek MD 2018-10-24 12:25:00 2018-10-24 12:25:00 Outpatient Altaf Meek MD PA [id number] Satinder Meek MD 2018-10-17 11:34:00 2018-10-17 11:34:00 Outpatient Altaf Meek MD PA [id number] Satinder Meek MD 2018-10-17 10:00:00 2018-10-17 10:00:00 Outpatient Altaf Meek MD PA [id number] Satinder Meek MD 2018-10-14 08:22:00 2018-10-14 08:22:00 Outpatient Altaf Meek MD PA [id number] Satinder Meek MD 2018-07-27 16:12:00 2018-07-27 16:12:00 Outpatient Altaf Meek MD PA [id number] Satinder Meek MD 2018-07-22 14:40:00 2018-07-22 14:40:00 Outpatient Altaf Meek MD PA [id number] Satinder Meek MD 2018-07-19 15:43:00 2018-07-19 15:43:00 Outpatient Altaf MADDOX [id number] Satinder Meek MD 2018-07-19 09:08:00 2018-07-19 09:08:00 Outpatient Altaf MADDOX [id number] Satinder Meek MD 2018-07-19 08:56:00 2018-07-19 08:56:00 Outpatient Altaf Meek MD PA [id number] Satinder Meek MD 2018-07-19 08:00:00 2018-07-19 08:00:00 Outpatient Altaf MADDOX [id number] SAMIR Meek MD 2017-10-21 16:55:00 2017-10-23 10:13:00 Discharged Inpatient (obs) ER ANDREY BARRETT [facility] [id number] [facility] 2017-09-29 07:21:00 2017-09-29 07:21:00 Registered Surgical Day Care [facility] [id number] [facility] 2017-06-29 09:45:00 2017-06-29 09:45:00 Outpatient Altaf Meek MD PA [id number] Satinder Meek MD 2017-06-11 14:34:00 2017-06-11 14:34:00 Outpatient Altaf MADDOX [id number] Satinder Meek MD 2017-06-08 15:54:00 2017-06-08 15:54:00 Outpatient Altaf MADDOX [id number] SAMIR Meek MD 2016-09-14 10:24:00 2016-09-14 10:24:00 Outpatient MD Altaf Whittaker MD [id number] Satinder Meek MD 2016-05-22 09:14:00 2016-05-22 09:14:00 Outpatient MD Altaf Whittaker MD [id number] SAMIR Meek MD 2016-05-11 09:47:00 2016-05-11 09:47:00 Outpatient MD Altaf Whittaker MD [id number] SAMIR Meek MD 2016-04-15 08:20:00 2016-04-15 08:20:00 Outpatient MD Altaf Whittaker MD [id number] SAMIR Meek MD 2016-01-29 11:11:00 2016-01-29 11:11:00 Outpatient MD Altaf Whittaker MD [id number] Satinder Meek MD 2015-10-10 11:00:00 2015-10-10 11:00:00 Outpatient MD Altaf Whittaker MD [id number] Satinder Meek MD 2015-10-10 09:20:00 2015-10-10 09:20:00 Outpatient MD Altaf Whittaker MD [id number] Satinder Meek MD 2014-05-28 14:17:00 2014-05-28 14:17:00 Outpatient MD Altaf Whittaker MD [id number] Satinder Meek MD 2014-03-12 10:26:00 2014-03-12 10:26:00 Outpatient MD Altaf Whittaker MD [id number] Satinder Meek MD 2014-01-15 09:28:00 2014-01-15 09:28:00 Outpatient MD Altaf Whittaker MD [id number] Satinder Meek MD 2013-12-25 08:46:00 2013-12-25 08:46:00 Outpatient MD Altaf Whittaker MD [id number] Satinder Meek MD 2013-12-24 15:13:00 2013-12-24 15:13:00 Outpatient MD Altaf Whittaker MD [id number] Satinder Meek MD 2013-12-22 10:30:00 2013-12-22 10:30:00 Outpatient MD Altaf Whittaker MD [id number] Satinder Meek MD Results Test Description Test Time Test Comments Results Result Comments Source US THYROID 2019-08-10 08:34:00 [place] [id number] Patient Name: GARFIELD CHA MR #: [id number] : 1955 Age/Sex: 64/M Req #: [id number] Adm Physician: Ordered by: MIGUELITO SILVA MD, MD Report #: [id number] Location: Room/Bed: Procedure: [id number] US/US THYROID Exam Date: 08/10/19 Exam Time: 825 REPORT STATUS: Signed EXAM: US THYROID DATE: 08/10/2019 7:46 AM INDICATION: Thyroid nodule COMPARISON: None FINDINGS: The right thyroid lobe is normal in size measuring 4.3 x 1.5 x 1.5 cm. The isthmus measures 2 mm in thickness and appears unremarkable. The left thyroid lobe is normal in size measuring 4.1 x 1.6 x 1.5 cm. The thyroid parenchyma is homogeneous without evidence for focal nodule. Thyroid vascularity is within normal limits. IMPRESSION: Unremarkable thyroid ultrasound examination. Signed by: Dr. Hemant Newsome MD on 08/10/2019 8:35 AM Dictated By: HEMANT NEWSOME MD 4 Transcribed By: JOHN on 08/10/19834 COPY TO: MIGUELITO SILVA Creatine Kinase MB 2017-10-22 15:13:00 Test Item Creatine Kinase MB (test code = 78443-8) 0.90 0-5.0 [facility] [id number] 15:13:00* Test Item Value Reference Range Interpretation Comments Troponin I (test code = UIU1927) -0.001 0-0.300 [facility] Jmqpee9642-60-11 15:06:00* Test Item Value Reference Range Interpretation Comments Creatine Kinase (test code = 2157-6) 72 30-200 [facility] Planoodium [id number] 06:42:00* Test Item Value Reference Range Interpretation Comments Sodium Level (test code = 2951-2) 145 136-145 [facility]Potassium [id number] 06:42:00* Test Item Value Reference Range Interpretation Comments Potassium Level (test code = 2823-3) 4.8 3.5-5.1 [facility] CenterChloride [id number] 06:42:00* Test Item Value Reference Range Interpretation Comments Chloride Level (test code = 2075-0) 108 98-107 H [facility] CenterCarbon Dioxide [id number] 06:42:00* Test Item Value Reference Range Interpretation Comments Carbon Dioxide Level (test code = 2028-9) 27 22-29 [facility] CenterAnion Ood7328 06:42:00* Test Item Value Reference Range Interpretation Comments Anion Gap (test code = 01361-3) 14.8 8-16 [facility] Urea Jreturyk4053-75-24 06:42:00* Test Item Value Reference Range Interpretation Comments Blood Urea Nitrogen (test code = 3094-0) 14 7-26 [facility] CenterCreatinine2018-03-09 06:42:00* Test Item Value Reference Range Interpretation Comments Creatinine (test code = 2160-0) 1.11 0.72-1.25 [facility] CenterBUN/Creatinine Rvcad8920-10-97 06:42:00* Test Item Value Reference Range Interpretation Comments BUN/Creatinine Ratio (test code = 3097-3) 13 6-25 [facility] CenterEstimat Glomerular Filtration Rate 2017-10-22 06:42:00* Test Item Value Reference Range Interpretation Comments Estimat Glomerular Filtration Rate (test code = 82858-8) 60- >60 Ranges were taken from the National Kidney Disease Education Program and the [facility] literature.Reference ranges:60 or greater: Gswakf44-53 ( for 3 consecutive months): Chronic kidney disease 15 or less: Kidney failureBaptist Medical CenterGlucose Aogpz0120-77-24 06:42:00* Test Item Value Reference Range Interpretation Comments Glucose Level (test code = HLA0870) 91 74-118 [facility] CenterCalcium Kzzcc3011-04-02 06:42:00* Test Item Value Reference Range Interpretation Comments Calcium Level (test code = 72697-3) 9.0 8.4-10.2 [facility] CenterMagnesium Uhwxe2774-02-57 06:42:00* Test Item Value Reference Range Interpretation Comments Magnesium Level (test code = 13816-7) 2.2 1.3-2.1 H [facility] CenterTotal Tlifajstt6864-59-23 06:42:00* Test Item Value Reference Range Interpretation Comments Total Bilirubin (test code = 1975-2) 1.5 0.2-1.2 H [facility] CenterAspartate Amino Transf (AST/SGOT) 2017-10-22 06:42:00* Test Item Value Reference Range Interpretation Comments Aspartate Amino Transf (AST/SGOT) (test code = Aspartate Amino Transf (AST/SGOT)) 18 5-34 [facility] CenterAlanine Aminotransferase (ALT/SGPT) 2017-10-22 06:42:00* Test Item Value Reference Range Interpretation Comments Alanine Aminotransferase (ALT/SGPT) (test code = 1742-6) 18 0-55 [facility] CenterTotal Esdcpwu2766-36-05 06:42:00* Test Item Value Reference Range Interpretation Comments Total Protein (test code = 2885-2) 6.6 6.5-8.1 [facility] CenterAlbumin2018-03-09 06:42:00* Test Item Value Reference Range Interpretation Comments Albumin (test code = 1751-7) 3.7 3.5-5.0 [facility] CenterGlobulin2018-03-09 06:42:00* Test Item Value Reference Range Interpretation Comments Globulin (test code = 55253-5) 2.9 2.3-3.5 [facility] CenterAlbumin/Globulin [id number] 06:42:00 * Test Item Value Reference Range Interpretation Comments Albumin/Globulin Ratio (test code = 1759-0) 1.3 0.8-2.0 [facility] CenterAlkaline Vrcpdqctyci9435-34-58 06:42:00* Test Item Value Reference Range Interpretation Comments Alkaline Phosphatase (test code = 6768-6) 58 40-150 [facility] CenterTriglycerides Bgjvr6816-58-39 06:42:00* Test Item Value Reference Range Interpretation Comments Triglycerides Level (test code = 2571-8) 76 0-149 [facility] CenterCholesterol Lnqzp9692-19-88 06:42:00* Test Item Value Reference Range Interpretation Comments Cholesterol Level (test code = 2093-3) 130 0-199 Less than 200 mg/dL Low Ulwn229 - 239 mg/dL Borderline Xjbl518 m g/dl and greater High Risk [facility] CenterLDL Kqteibrmmkh8611-97-08 06:42:00* Test Item Value Reference Range Interpretation Comments LDL Cholesterol (test code = 2089-1) 72 60-130 [facility] CenterHDL Hjgohejuwfw1268-38-14 06:42:00* Test Item Value Reference Range Interpretation Comments HDL Cholesterol (test code = 2085-9) 43 40-60 [facility] CenterCholesterol/HDL Iubps0620-41-08 06:42:00 * Test Item Value Reference Range Interpretation Comments Cholesterol/HDL Ratio (test code = 9830-1) 3.0 3.9-4.7 L [facility] CenterWhite Blood Ntprq8459-61-49 06:20:00* Test Item Value Reference Range Interpretation Comments White Blood Count (test code = 6690-2) 9.96 4.8-10.8 [facility] CenterRed Blood Thcyn3437-52-50 06:20:00* Test Item Value Reference Range Interpretation Comments Red Blood Count (test code = 789-8) 4.01 4.3-5.7 L [facility] CenterHemoglobin2018-03-09 06:20:00* Test Item Value Reference Range Interpretation Comments Hemoglobin (test code = 72985-7) 13.9 14.0-18.0 L [facility] CenterHematocrit2018-03-09 06:20:00* Test Item Value Reference Range Interpretation Comments Hematocrit (test code = 4544-3) 40.6 38.2-49.6 [facility] CenterMean Corpuscular Egczgj9397-25-61 06:20:00* Test Item Value Reference Range Interpretation Comments Mean Corpuscular Volume (test code = 787-2) 101.2 81-99 H [facility] CenterMean Corpuscular Hxpquyorxq3838-16-01 06:20:00* Test Item Value Reference Range Interpretation Comments Mean Corpuscular Hemoglobin (test code = 785-6) 34.7 28-32 H [facility] CenterMean Corpuscular Hemoglobin Concent 2017-10-22 06:20:00* Test Item Value Reference Range Interpretation Comments Mean Corpuscular Hemoglobin Concent (test code = 786-4) 34.2 31-35 [facility] CenterRed Cell Distribution Axtxa9040-11-47 06:20:00* Test Item Value Reference Range Interpretation Comments Red Cell Distribution Width (test code = 59913-5) 12.5 11.7 -14.4 [facility] Thpcx2379-92-08 06:20:00* Test Item Value Reference Range Interpretation Comments Platelet Count (test code = 777-3) 177 140-360 [facility]ils (%) (Auto)2017-10-22 06:20:00 * Test Item Value Reference Range Interpretation Comments Neutrophils (%) (Auto) (test code = 67467-2) 61.7 38.7-80.0 [facility]Lymphocytes (%) (Auto)2017-10-22 06:20:00 * Test Item Value Reference Range Interpretation Comments Lymphocytes (%) (Auto) (test code = 736-9) 27.9 18.0-39.1 [facility] (%) (Auto)2017-10-22 06:20:00* Test Item Value Reference Range Interpretation Comments Monocytes (%) (Auto) (test code = 5905-5) 7.8 4.4-11.3 [facility]Eosinophils (%) (Auto)2017-10-22 06:20:00 * Test Item Value Reference Range Interpretation Comments Eosinophils (%) (Auto) (test code = 713-8) 2.0 0.0-6.0 [facility]Basophils (%) (Auto)2017-10-22 06:20:00* Test Item Value Reference Range Interpretation Comments Basophils (%) (Auto) (test code = 706-2) 0.4 0.0-1.0 [facility] CenterIM GRANULOCYTES %2017-10-22 06:20:00* Test Item Value Reference Range Interpretation Comments IM GRANULOCYTES % (test code = IM GRANULOCYTES %) 0.2 0.0- 1.0 [facility]Neutrophils # (Auto)2017-10-22 06:20:00* Test Item Value Reference Range Interpretation Comments Neutrophils # (Auto) (test code = 751-8) 6.1 2.1-6.9 [facility]Lymphocytes # (Auto)2017-10-22 06:20:00* Test Item Value Reference Range Interpretation Comments Lymphocytes # (Auto) (test code = 79248-7) 2.8 1.0-3.2 [facility]Mon[facility] # (Auto)2017-10-22 06:20:00* Test Item Value Reference Range Interpretation Comments Monocytes # (Auto) (test code = 742-7) 0.8 0.2-0.8 [facility]Eosinophils # (Auto)2017-10-22 06:20:00* Test Item Value Reference Range Interpretation Comments Eosinophils # (Auto) (test code = 711-2) 0.2 0.0-0.4 [facility]Bas[facility] # (Auto)2017-10-22 06:20:00* Test Item Value Reference Range Interpretation Comments Basophils # (Auto) (test code = 704-7) 0.0 0.0-0.1 [facility] CenterAbsolute Immature Granulocyte (auto 2017-10-22 06:20:00* Test Item Value Reference Range Interpretation Comments Absolute Immature Granulocyte (auto (mamie t code = Absolute Immature Granulocyte (auto) 0.02 0-0.1 [facility]Urine [id number] 16:36:00* Test Item Value Reference Range Interpretation Comments Urine WBC (test code = 5821-4) 0-5 0-5 [facility] [id number] 16:36:00* Test Item Value Reference Range Interpretation Comments Urine RBC (test code = 19139-5) 6-10 0-5 H [facility] Wnpgbymh2654-44-45 16:36:00* Test Item Value Reference Range Interpretation Comments Urine Bacteria (test code = 82168-4) NONE NONE [facility] Epithelial Efral2380-85-72 16:36:00 * Test Item Value Reference Range Interpretation Comments Urine Epithelial Cells (test code = 10663-9) NONE NONE [facility] Sfhjw9715-20-43 16:36:00* Test Item Value Reference Range Interpretation Comments Urine Mucus (test code = 8247-9) MODERATE RARE H [facility] CenterThyroid Stimulating Hormone (TSH) 2017-10-21 16:31:00* Test Item Value Reference Range Interpretation Comments Thyroid Stimulating Hormone (TSH) (test code = 92833-6) 1.276 0.350-4.940 [facility] CenterB-Type Natriuretic Wldnjpw4129-53-82 16:22:00* Test Item Value Reference Range Interpretation Comments B-Type Natriuretic Peptide (test code = 81808-2) 17.5 0-100 [facility] CenterLipase2018-03-08 16:12:00* Test Item Value Reference Range Interpretation Comments Lipase (test code = 3040-3) 63 8-78 [facility] Svfbf2078-51-06 16:04:00* Test Item Value Reference Range Interpretation Comments Urine Color (test code = 5778-6) YELLOW YELLOW [facility] Oovukjx5989-41-12 16:04:00* Test Item Value Reference Range Interpretation Comments Urine Clarity (test code = 21777-0) CLEAR CLEAR [facility] Specific Raetfli6195-84-65 16:04:00 * Test Item Value Reference Range Interpretation Comments Urine Specific [place] (test code = 5811-5) 1.015 1.010-1.02 5 [facility] [id number] 16:04:00* Test Item Value Reference Range Interpretation Comments Urine pH (test code = 44058-8) 6 5-7 [facility] Leukocyte Fhncqirg1851-01-44 16:04:00* Test Item Value Reference Range Interpretation Comments Urine Leukocyte Esterase (test code = 5799-2) NEGATIVE NEGATIVE [facility] Trkpxri9512-92-78 16:04:00* Test Item Value Reference Range Interpretation Comments Urine Nitrite (test code = 09968-1) NEGATIVE NEGATIVE [facility] Hduijws4839-45-71 16:04:00* Test Item Value Reference Range Interpretation Comments Urine Protein (test code = 5804-0) NEGATIVE NEGATIVE [facility] Glucose (UA)2017-10-21 16:04:00* Test Item Value Reference Range Interpretation Comments Urine Glucose (UA) (test code = 2349-9) NEGATIVE NEGATIVE [facility] Irvryym4746-92-10 16:04:00* Test Item Value Reference Range Interpretation Comments Urine Ketones (test code = 27777-0) NEGATIVE NEGATIVE [facility] Rxumtbtasfyb6287-74-87 16:04:00* Test Item Value Reference Range Interpretation Comments Urine Urobilinogen (test code = 75723-9) 0.2 0.2-1 [facility] Rkledfjkw0142-38-80 16:04:00* Test Item Value Reference Range Interpretation Comments Urine Bilirubin (test code = 1978-6) NEGATIVE NEGATIVE [facility] Msnyq4982-11-83 16:04:00* Test Item Value Reference Range Interpretation Comments Urine Blood (test code = 13117-3) 2+ NEGATIVE H [facility] CenterProthrombin Rvmv3590-84-90 16:03:00* Test Item Value Reference Range Interpretation Comments Prothrombin Time (test code = 5902-2) 12.9 11.9-14.5 [facility] CenterProthromb Time International Ratio 2017-10-21 16:03:00* Test Item Value Reference Range Interpretation Comments Prothromb Time International Ratio (test code = 6301-6) 1.05 Oral Anticoagulant Therapy INR Values:1. Low Intensity Therapy 1.5 - 2.02 . Moderate Intensity Therapy 2.0 - 3.03. High Intensity Therapy(1) 2.5 - 3. 54. High Intensity Therapy(2) 3.0 - 4.05. Panic Value INR > 5.0 [facility] CenterActivated Partial Thromboplast Time 2017-10-21 16:03:00* Test Item Value Reference Range Interpretation Comments Activated Partial Thromboplast Time (test code = 60479-1) 29.3 23.8-35.5 [facility]CT [facility] W [place] [address] Patient Name: GARFIELD CHA MR #: [id number] : 1955 Age/Sex: 62/M Req #: [id number] Adm Physician: ANDREY BARRETT MD Ordered by: LESLEY KOHLI MD Report #: [id number] Location: [facility] Room/Bed: [place] [address] Procedure: [id number] CT/CT CHEST W Exam Date: 10/21/17 Exam Time: 1919 REPORT STATUS: Signed EXAM: CT Chest WITH contrast 10/21/2017 6:38 P M INDICATION: COMPARISON: None. TECHNIQUE: Abdomen and p hamzah were scanned utilizing a multidetector helical scanner from the lung bas e to the pubic symphysis after administration of IV contrast. Coronal and sagi ttal reformations were obtained. IV CONTRAST: 100 mL of Isovue -370 ORAL CONTRAST: None COMPLICATIONS: None RADIATION DOSE: Total DLP: 503.7 mGy*cm Estimated effective dose: (DLP x 0.015 x size factor) mSv CTDIvol has been reviewed. It is below t he limits set by the Radiation Protocol Committee (RPC). FINDINGS: L DELANO/ TUBES: None. PULMONARY ARTERIES: No filling defects are identified in the main, right or left pulmonary arteries to their segmental and subseg mental levels, to suggest pulmonary embolism. The main pulmonary artery is no rmal in size. LUNGS AND AIRWAYS: Minimal atelectasis in both lung bases. O therwise, lungs are clear. Airways are normal. PLEURA: Trace bilateral p leural effusions. No pneumothorax. HEART AND MEDIASTINUM: The thyroid gland is normal. Few nonspecific subcentimeter right hilar lymph nodes. The left atrium is mildly enlarged. No RV strain. There is no pericardial effusion. The thoracic aorta is normal in caliber and associated with minimal calcificat ions in the arch. UPPER ABDOMEN: Cholecystectomy. BONES: The visualize d bony thorax is within normal limits. SOFT TISSUES: Unremarkable. IMP RESSION: No pulmonary embolism. Minimal atelectasis in both lung bases, otherwise unremarkable lungs. Trace bilateral pleural effusions. Signed by: Dr. Alma Benitez M.D. on 10/21/2017 7:57 PM Dictated By: ALMA BENITEZ MD 56 Transcribed By: JOHN on 10/21/171956 COPY TO: LESLEY KOHLI MD CHEST SINGLE (PORTABLE) [place] [address] Patient Name: GARFIELD CHA MR #: [id number] : 1955 Age/Sex: 62/M Req #: [id number] Adm Physician: ANDREY BARRETT MD Ordered by: FEDE VIEYRA, NALLELY VIEYRA Report #: [id number] Loc ation: [facility] Room/Bed: [facility] Procedure: [id number] DX/CHEST SINGLE (PORTABLE) Exam Date: 10/21/17 Exam Time: 1646 REPORT STATUS: Signed PROCEDURE: A single AP view of the chest. COMPARISON: None. INDICATIONS: CHEST PAIN FINDING S: Lines/tubes: None. Lungs: The lungs are slightly hypoinflated but g rossly clear. There is no evidence of pneumonia or pulmonary edema. Ple ura: There is no pleural effusion or pneumothorax. Heart and mediastinum: Cardiac silhouette is unremarkable. Pulmonary vasculature is normal. B ones: No acute bony abnormality. IMPRESSION: 1. slightly hypoinfla leah lungs, without acute cardiopulmonary abnormalities. Yves huynh M.D. Dictated by: Yves Guthrie M.D. on 10/21/2017 at 17:02 Electronically approved by: Yves Guthrie M.D. on 10/21/2017 at 17:02 Dictated By: YVES GUTHRIE MD 01 Transcribed By: SATNAM on 10/21/171701 COPY TO: NALLELY MISTRY
--- OUTSIDE RECORDS SUMMARY | 2020-01-20 10:41 | XMS REPORT ---
Author Author GARFIELD Meek [facility] eClinicalWorks Address Unknown Phone Unavailable Care Team Providers Care Verification Lead Name Role Phone Altaf Meek Unavailable Encounters Encounter Location Date Unknown Altaf Meek MD December 22, 2013 Refill- MTX Altaf Meek MD March 12, 2014 [place] [id number] SF Altaf Meek MD May 28, 2014 Treatment update Altaf Meek MD December [...] since you last smoked?: > 10 years May 17, 2014 Marital Status: single. May 17, 2014 Caffeine: no. May 17, 2014 Exercise: yes. walking May 17, 2014 Alcohol: no. May 17, 2014 Occupation: . [employer] May 17, 2014 Summary Purpose eClinicalWorks Submission
--- OUTSIDE RECORDS SUMMARY | 2020-01-20 10:41 | XMS REPORT ---
Author Author GARFIELD Olivas Organization eClinicalWorks Address Unknown Phone Unavailable Care Team Providers Care Retail Warehouse Supervisor Name Role Phone Ina Olivas CP Unavailable Allergies, Adverse Reactions, Alerts Substance Reaction Event Type N.K.D.A. 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 9 Active Assessment Immunocompromised state D89.9 Acti ve Assessment Rheumatoid arthritis with rh eumatoid factor of multiple sites without organ or systems involvement M05.79 Active Medications Medication Code System Code Instructions Start Date End Date Status Dosage Rosuvastatin Calcium ND 13749444856 40 MG Orally Once a day Active 1 tablet Metoprolol Tartrate ND 99577588719 25 MG Orally Twice a day Active 1 tablet with food PredniSONE ND 58426864541 5 MG Orally Once a day December 19, 2019 Active 1 tablet Terbinafine HCl ND 96163768217 250 MG Orally Once a day Active 1 tablet Aspir-81 ND 78875166255 81 MG Orally Once a day Act diana 1 tablet Inflectra ND 55170628697 100 MG Intravenous Active as directed Folic Acid ND 93767942415 1 MG Active TAKE 1 TA BLET BY MOUTH ONCE A DAY Methotrexate (Anti-Rheumatic) NDC 0 2.5 MG orally once a week Jul 20, 2018 Active 10 tablets Doxazosin Mesylate ND 70330099204 4 MG Orally Once a day Active 1 tablet Vital Signs Date/Time: January 04, 2020 BMI 28.08 Index Weight 218.7 lbs Height 74 in Temperature 99.3 F Cardiac Monitoring Heart Rate 64 /min Blood Pressure Diastolic 72 mm Hg Blood Pressure Systolic 112 mm Hg Results No Known Results Summary Purpose eClinicalWorks Submission
--- OUTSIDE RECORDS SUMMARY | 2020-01-20 10:41 | XMS REPORT ---
Author Author GARFIELD Meek [facility] eClinicalWorks Address Unknown Phone Unavailable Care Team Providers Care Fisher Dip Net Name Role Phone Altaf Meek CP Unavailable [...]
--- OUTSIDE RECORDS SUMMARY | 2020-01-20 10:41 | XMS REPORT ---
Author GARFIELD Aguilar [facility] eClinicalWorks Address Unknown Phone Unavailable Care Team Providers Care Concrete Block Mason Name Role Phone Altaf Meek CP Unavailable Encounters Encounter Location Date Unknown Altaf Meek MD December 22, 2013 Refill- MTX Altaf Meek MD March 12, 2014 [place] [id number] SF Altaf Meek MD May 28, 2014 [...] fu Altaf Meek MD Oct 10, 2015 [place] [address] Protocol. Altaf Meek MD May 22, 2016 METHOTREXATE REFILL Altaf Meek MD Apr 15, 2016 DEXA Altaf Meek MD May 11, 2016 Problems Problem Type Condition ICD-9 Code Onset [...]
--- OUTSIDE RECORDS SUMMARY | 2020-01-20 10:41 | XMS REPORT ---
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
--- OUTSIDE RECORDS SUMMARY | 2020-01-20 10:41 | XMS REPORT ---
Author GARFIELD Aguilar [facility] eClinicalWorks Address Unknown Phone Unavailable Care Team Providers Care Baker Bread Name Role Phone Altaf Meek CP Unavailable Encounters Encounter Location Date Unknown Altaf Meek MD December 22, 2013 Refill- MTX Altaf Meek MD March 12, 2014 [place]to [id number] SF Altaf Meek MD May 28, 2014 [...] MD Oct 10, 2015 [place] [address] Protocol. Altaf Meek MD May 22, 2016 med refill Altaf Meek MD Sep 14, 2016 METHOTREXATE REFILL Altaf Meek MD Apr [...] Date End Date Status Dos[facility] [address]70 1 MG Orally Once a day Sep 14December 13, 2016 Active 1 tablet Methotrexate (Anti-Rheumatic) MEDISPAN [address]-49 2.5 MG Ora lly q week January 14, 2016 Active 4 tablets Social History Social History Element Qualifiers Date [...]
--- OUTSIDE RECORDS SUMMARY | 2020-01-20 10:41 | XMS REPORT ---
Author Author GARFIELD Meek Organization eClinicalWorks Address Unknown Phone Unavailable Care Team Providers Care Beef Cattle Farmer Name Role Phone Altaf Meek CP Unavailable Allergies No Known Allergies Problems Problem Type Condition Code Onset Dates Condition Statu s Problem Rheumatoid arthritis with rh eumatoid factor of multiple sites without organ or systems involvement M05.79 Active Medications No Known Medications Results No Known Results Summary Purpose eClinicalWorks Submission
--- OUTSIDE RECORDS SUMMARY | 2020-01-20 10:41 | XMS REPORT ---
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
--- OUTSIDE RECORDS SUMMARY | 2020-01-20 10:41 | XMS REPORT ---
Author Author GARFIELD Meek [facility] eClinicalWorks Address Unknown Phone Unavailable Care Team Providers Care Road Mechanic Name Role Phone Altaf Meek CP Unavailable Encounters Encounter Location Date Unknown Altaf Meek MD December 22, 2013 Refill- MTX Altaf Meek MD March 12, 2014 [place] [id number] SF Altaf Meek MD May 28, 2014 actemra PE Altaf Meek MD Apr 30, 2014 Treatment update Altaf Meek MD December 24, 2013 METHOTREXATE REFILL Altaf Meek MD Apr 15, 2016 BILLING Altaf Meek MD December 25, 2013 DEXA Altaf Meek MD May 11, 2016 Research Altaf Meek MD January 15, 2014 [...]
[2020-01-20] MEDS ORDERED: PANTOPRAZOLE 40 MG 10ML VIAL IV STA (10:51)
[2020-01-20] MEDS ORDERED: KETOROLAC TROMETHAMINE 30 MG/ML VIAL IV STA (10:51)
[2020-01-20] MEDS ORDERED: SODIUM CHLORIDE 0.9% 1000ML 1,000 ML IV STA (10:51)
[2020-01-20] MEDS ORDERED: ASPIRIN 81 MG CHEW TAB PO ONE (11:00)
[2020-01-20 11:03] LABS: BASOPHILS % 0.3 % (0.0-1.0); EOSINOPHILS # (AUTO) 0.1 (0.0-0.4); EOSINOPHILS % 3.8 % (0.0-6.0); HEMATOCRIT 41.7 % (38.2-49.6); LYMPHOCYTES % 25.6 % (18.0-39.1); MEAN CORPUSCULAR HEMOGLOBIN 33.8 pg (28-32); MEAN CORPUSCULAR HGB CONC 33.6 g/dL (31-35); MEAN CORPUSCULAR VOLUME 100.7 fL (81-99); MONOCYTES # (AUTO) 0.3 (0.2-0.8); MONOCYTES % 7.5 % (4.4-11.3); NEUTROPHILS # (AUTO) 2.3 (2.1-6.9); NEUTROPHILS % 62.5 % (38.7-80.0); PLATELET COUNT 143 x10e3/uL (140-360); RED BLOOD COUNT 4.14 x10e6/uL (4.3-5.7); RED CELL DISTRIBUTION WIDTH 13.3 % (11.7-14.4)
[2020-01-20] MEDS ORDERED: NITROGLYCERIN 0.4 MG SUBL SL PRN (11:15)
[2020-01-20] MEDS ORDERED: MORPHINE SULFATE 2 MG/ML SYR 1ML IV PRN (11:15)
[2020-01-20] MEDS ORDERED: ONDANSETRON HCL INJ 2MG/ML 2ML 2 MG/ML VIAL IV PRN (11:15)
[2020-01-20 11:16] LABS: INR 0.81; PARTIAL THROMBOPLASTIN TIME 30.2 seconds (23.8-35.5); PROTHROMBIN TIME 11.7 seconds (11.9-14.5)
[2020-01-20 11:25] LABS: ALANINE AMINOTRANSFERASE 25 IU/L (0-55); ALBUMIN/GLOBULIN RATIO 1.1 (0.8-2.0); ALKALINE PHOSPHATASE 64 IU/L (40-150); ANION GAP 12.9 mmol/L (8-16); BLOOD UREA NITROGEN 9 mg/dL (7-26); BUN/CREATININE RATIO 8 (6-25); CALCIUM 9.4 mg/dL (8.4-10.2); CARBON DIOXIDE 26 mmol/L (22-29); CHLORIDE 102 mmol/L (98-107); CREATINE KINASE 58 IU/L (30-200); CREATININE, SERUM 1.13 mg/dL (0.72-1.25); EST GLOMERULAR FILTRATION RATE > 60 ML/MIN (60-); GLUCOSE 109 mg/dL (74-118); POTASSIUM 3.9 mmol/L (3.5-5.1); SODIUM 137 mmol/L (136-145)
--- OUTSIDE RECORDS SUMMARY | 2020-01-20 11:31 | XMS REPORT | Continuity of Care Document ---
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 Satinder Meek Shoulder pain Active Diagnosis 09/21/2019 Satinder Meek Immunocompromised state Active Problem 01/06/2020 Satinder Meek Medications Medication Details Route Status Patient Instructions Ordering Provider Order Date Source PredniSONE 1 tablet Orally Active 5 MG Orally Once a day [place] 12/19/2019 Satinder Meek PredniSONE 1 tablet Orally Active 5 MG Orally Once a day [place] 09/12/2019 Satinder Meek Prednisone Taper 3 tablets for 5 days, 2 tablets for 5 days and then 1 tablet for 5 days Orally Active 5mg Orally once a day [place] 08/23/2019 Satinder Meek Prednisone Taper 3 tablets for 5 days, 2 tablets for 5 days and then 1 tablet for 5 days Orally Active 5mg Orally once a day [facility] 07/10/2019 Satinder Meek Methotrexate (Anti-Rheumatic) 6 tablets Orally Active 2.5 MG Orally q week [facility] 07/20/2018 Satinder Meek Methotrexate (Anti-Rheumatic) 10 tablets orally Active 2.5 MG orally once a week [place] 07/20/2018 Satinderaddie Meek Simponi [facility] 2mg/kg at 220 lbs (199.6mg) Intravenous Active 50 MG/4ML Intravenous loading dose at week 0 4 and then q8wks [place] 07/19/2018 Satinder Meek Folic Acid 1 tablet Orally Active 1 MG Orally Once a day [place] 06/10/2017 Satinder Meek Folic Acid 1 tablet Orally Active 1 MG Orally Once a day [place] 09/14/2016 Satinderaddie Meek Methotrexate (Anti-Rheumatic) 6 tablets Orally Active 2.5 MG Orally q week [place] 01/14/2016 Satinderaddie Meek Methotrexate (Anti-Rheumatic) 4 tablets Orally Active 2.5 MG Orally q week [place] 01/14/2016 Satinderaddie Meek Folic Acid 1 tablet Orally Active 1 MG Orally Once a day [place] 10/10/2015 Satinder Meek Methotrexate four tabs Orally Active 2.5 MG Orally q weeks [place] 10/10/2015 Satinderaddie Meek Methotrexate take 6 pills once weekly Orally Active 2.5mg Orally Once a week [place] 01/17/2014 Satinderaddie Meek Methotrexate 5 tablets Orally Active 2.5mg Orally Once a wee k [place] 12/24/2013 Satinder Meek Folic Acid as directed Orally Active 1 MG Orally q am [place] 10/21/2012 Satinder Meek Doxazosin Mesylate 1 tablet Orally Active 4 MG Orally Once a day [place] Meek Pravastatin Sodium 1 tablet Orally Active 80 MG Orally Once a day [place] Satinder Meek Aspir-81 1 tablet Orally Active 81 MG Orally Once a day Brendon Meek Atorvastatin Calcium 1 tablet Orally Active 80 MG Orally Once a day [place] Satinder Meek Folic Acid TAKE 1 TABLET BY [facility] ONCE A DAY NA Active 1 MG Brendon Meek Metoprolol Succinate ER 1 tabl et Orally Active 25 MG Orally Once a day [place] Satinder Meek Doxazosin Mesylate 1 tablet Orally Active 4 MG Orally Once a day [place] Satinder Meek Pravastatin Sodium 1 tablet Orally [...] Value Date Comments Source Weight 218.7 01/04/2020 Satinder Meek Height 74 0 01/04/2020 Satinder Meek [...] Satinder Meek Height 74 1 08/29/2016 Satinder Emek Temperature Oral (F) 97.5 F 06/29/2017 Satinder [...] Date Status Source Altaf Meek MD Unknown [id number] 12/23/19 14 12/22/2013 Satinder Meek MD Unknown [id number] 12/23/19 14 12/22/2013 Satinder Meek MD Unknown [id number] 12/23/19 14 12/22/2013 Satinder Meek MD Unknown [id number] 12/23/19 14 12/22/2013 Satinder Meek MD Unknown [id number] 12/23/19 14 12/22/2013 Satinder Meek MD Unknown [id number] 12/23/19 14 12/22/2013 Satinder Meek MD Unknown [id number] 12/23/19 14 12/22/2013 Satinder Meek MD Unknown [id number] 12/23/19 14 12/22/2013 Satinder Meek MD Unknown [id number] 12/23/19 14 12/22/2013 Satinder Meek MD Unknown [id number] 12/23/19 14 12/22/2013 Satinder Meek MD Unknown [id number] 12/23/19 14 12/22/2013 Satinder Meek MD Treatment update [id number] 12/25/19 14 12/24/2013 Satinder Meek MD Treatment update [id number] 12/25/19 14 12/24/2013 Satinder Meek MD Treatment update [id number] 12/25/19 14 12/24/2013 Satinder Meek MD Treatment update [id number] 12/25/19 14 12/24/2013 Satinder Meek MD Treatment update [id number] 12/25/19 14 12/24/2013 Satinder Meek MD Treatment update [id number] 12/25/19 14 12/24/2013 Satinder Meek MD Treatment update [id number] 12/25/19 14 12/24/2013 Satinder Meek MD Treatment update [id number] 12/25/19 14 12/24/2013 Satinder Meek MD Treatment update [id number] 12/25/19 14 12/24/2013 Satinder Meek MD Treatment update [id number] 12/25/19 14 12/24/2013 Satinder Meek MD Treatment update [id number] 12/25/19 14 12/24/2013 Satinder Meek MD Treatment update [id number] 12/25/19 14 12/24/2013 Satinder Meek MD Treatment update [id number] 12/25/19 14 12/24/2013 Satinder Meek MD BILLING [id number] 12/26/19 14 12/25/2013 Satinder Meek MD BILLING [id number] 12/26/19 14 12/25/2013 Satinder Meek MD BILLING [id number] 12/26/19 14 12/25/2013 Satinder Meek MD BILLING [id number] 12/26/19 14 12/25/2013 Satinder Meek MD BILLING [id number] 12/26/19 14 12/25/2013 Satinder Meek MD BILLING [id number] 12/26/19 14 12/25/2013 Satinder Meek MD BILLING [id number] 12/26/19 14 12/25/2013 Satinder Meek MD BILLING [id number] 12/26/19 14 12/25/2013 Satinder Meek MD BILLING [id number] 12/26/19 14 12/25/2013 Satinder Meek MD BILLING [id number] 12/26/19 14 12/25/2013 Satinder Meek MD BILLING [id number] 12/26/19 14 12/25/2013 Satinder Meek MD BILLING [id number] 12/26/19 14 12/25/2013 Satinder Meek MD BILLING [id number] 12/26/19 14 12/25/2013 Satinder Meek MD Research [id number] 01/16/20 14 01/15/2014 Satinder Meek MD Research [id number] 01/16/20 14 01/15/2014 Satinder Meek MD Research [id number] 01/16/20 14 01/15/2014 Satinder Meek MD Research [id number] 01/16/20 14 01/15/2014 Satinder Meek MD Research [id number] 01/16/20 14 01/15/2014 Satinder Meek MD Research [id number] 01/16/20 14 01/15/2014 Satinder Meek MD Research [id number] 01/16/20 14 01/15/2014 Satinder Meek MD Research [id number] 01/16/20 14 01/15/2014 Satinder Meek MD Research [id number] 01/16/20 14 01/15/2014 Satinder Meek MD Research [id number] 01/16/20 14 01/15/2014 Satinder Meek MD Research [id number] 01/16/20 14 01/15/2014 [facility] [id number] 03/12/20 14 03/12/2014 Satinder Meek MD Refill- MTX [id number] 03/12/20 14 03/12/2014 Satinder Meek MD Refill- MTX [id number] 03/12/20 14 03/12/2014 Satinder Meek MD Refill- MTX [id number] 03/12/20 14 03/12/2014 Satinder Meek MD Refill- MTX [id number] 03/12/20 14 03/12/2014 Satinder Meek MD Refill- MTX [id number] 03/12/20 14 03/12/2014 Satinder Meek MD Refill- MTX [id number] 03/12/20 14 03/12/2014 Satinder Meek MD Refill- MTX [id number] 03/12/20 14 03/12/2014 Satinder Meek MD Refill- MTX [id number] 03/12/20 14 03/12/2014 Satinder Meek MD actemra PE [id number] 04/30/20 14 04/30/2014 Satinder Meek MD actemra PE [id number] 04/30/20 14 04/30/2014 Satinder Meek MD actemra PE [id number] 04/30/20 14 04/30/2014 Satinder Meek MD actemra PE [id number] 04/30/20 14 04/30/2014 Satinder Meek MD actemra PE [id number] 04/30/20 14 04/30/2014 Satinder Meek MD actemra PE [id number] 04/30/20 14 04/30/2014 Satinder Meek MD actemra PE [id number] 04/30/20 14 04/30/2014 Satinder Meek MD Rigoberto [id number] 05/28/20 14 05/28/2014 Satinder Meek MD Rig[facility]to [id number] 05/28/20 14 05/28/2014 Satinder Meek MD Rigoberto [id number] 05/28/20 14 05/28/2014 Satinder Meek MD [facility]to [id number] 05/28/20 14 05/28/2014 Satinder Meek MD [place] [id number] 05/28/20 14 05/28/2014 Satinder Meek MD [place]to [id number] 05/28/20 14 05/28/2014 Satinder Meek MD [facility] [id number] 05/28/20 14 05/28/2014 Satinder Meek MD [facility] [id number] 05/28/20 14 05/28/2014 Satinder Meek MD abbvie 465 SANDRA vs humira [id number] 10/10/19 16 10/10/2015 Satinder Meek MD abbvie 465 SANDRA vs humira [id number] 10/10/19 16 10/10/2015 Satinder Meek MD abbvie 465 SANDRA vs humira [id number] 10/10/19 16 10/10/2015 Satinder Meek MD abbvie 465 SANDRA vs humira [id number] 10/10/19 16 10/10/2015 Satinder Meke MD abbvie 465 SANDRA vs humira [id number] 10/10/19 16 10/10/2015 Satinder Meek MD abbvie 465 SANDRA vs humira [id number] 10/10/19 16 10/10/2015 Satinder Meek MD abbvie 465 SANDRA vs humira [id number] 10/10/19 16 10/10/2015 Satinder Meek MD fu [id number] 10/10/2015 10/10/2015 Satinder Meek MD fu [id number] 10/10/2015 10/10/2015 Satinder Meek MD fu [id number] 10/10/2015 10/10/2015 Satinder Meek MD fu [id number] 10/10/2015 10/10/2015 Satinder Meek MD fu [id number] 10/10/2015 10/10/2015 Satinder Meek MD fu [id number] 10/10/2015 10/10/2015 Satinder Meek MD Screen fail 4-465 [id number] 01/29/20 16 01/29/2016 Satinder Meek MD Screen fail M14-465 [id number] 01/29/20 16 01/29/2016 Satinder Meek MD Screen fail M14-465 [id number] 01/29/20 16 01/29/2016 Satinder Meek MD Screen fail M14-465 [id number] 01/29/20 16 01/29/2016 Satinder Meek MD Screen fail M14-465 [id number] 01/29/20 16 01/29/2016 Satinder Meek MD METHOTREXATE REFILL [id number] 04/15/2016 04/15/2016 Satinder Meek MD METHOTREXATE REFILL [id number] 04/15/2016 04/15/2016 Satinder Meek MD METHOTREXATE REFILL [id number] 04/15/2016 04/15/2016 Satinder Meek MD METHOTREXATE REFILL [id number] 04/15/2016 04/15/2016 Satinder Meek MD DEXA [id number] 05/11/2016 05/11/2016 Satinder Meek MD DEXA [id number] 05/11/2016 05/11/2016 Satinder Meek MD DEXA [id number] 05/11/2016 05/11/2016 [place] [address] Protocol. [id number] 05/22/2016 05/22/2016 [place] [address] Protocol. [id number] 05/22/2016 05/22/2016 Satinder Meek MD med refill [id number] 09/14/19 17 09/14/2016 Satinder Meek Procedures No [...]
--- OUTSIDE RECORDS SUMMARY | 2020-01-20 11:32 | XMS REPORT | Continuity of Care Document ---
Author Author [facility] Organization [facility] Address [address] [place] [address] Phone Unavailable Care Team Providers Care Inspector Watch [employer] Name Role Phone MIGUELITO SILVA PCP MIGUELITO SILVA Attphys Unavailable Kerri ABRRETT Attphys Unavailable Kerri BARRETT Admphys Unavailable Payers Payer Name Policy Type Policy Number Effective Date Expiration Date Raven Crandall Medicare Complete [id number] 2017 00:00:00 [facility] Problems Condition Name Condition Details Condition Category Status Onset Date Resolution Date Last Treatment Date Treating Clinician Comments Source Chest pain Chest pain Problem Active C [facility] Hypertension Hypertension Problem Active [facility] Long-term (current) use of other medications - [...] Meek Diagnosis Active 2017-07-06 03:47:49 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 Active Problem [...] Satinder Meek Diagnosis Active 2019-09-21 03:46:42 [facility] Encounter for screening for other viral diseases Encounter for screening for other viral diseases Active Diagnosis 09/21/2019 Satinder Meek Diagnosis Active 2019-09-21 03:46:42 [facility] Encounter for screening for infectious and parasitic d iseases, unspecified Encounter for screening for infectious and parasitic diseases, unspecified Active Diagnosis 09/21/2019 Satinder Meek Diagnosis Active 2019-09-21 03:46:42 [facility] Encounter for screening for respiratory tuberculosis Encounter for screening for respiratory tuberculosis Active Diagnosis 09/21/2019 Satinder Meek Diagnosis Active 2019-09-21 03:46:42 [facility] Shoulder pain Shou lder pain Active Diagnosis 09/21/2019 Satinder Meek Diagnosis Active 2019-09-21 03:46:42 [facility] Immunocompromised state Immu nocompromised state Active Problem 01/06/2020 Satinder Meek Problem Active 2020-01-06 02 :45:39 [facility] Allergies, Adverse Reactions, Alerts Allergy Name Allergy Type Status Severity Reaction(s) Onset Date Inacti ve Date Treating Clinician Comments Source AmyA. N.Leida.A. Active Info Not Available 2020-01-04 00:00:00 [facility] Social History Social Habit Start Date Stop Date Quantity Comments Source TobaccoUse: 2015-10-10 00:00:00 2015-10-10 00:00:00 [facility] Medications Ordered Medication Name Filled Medication Name Start Date Stop Da te Current Medication? Ordering Clinician Indication Dosage Frequency Signature (SIG) Comments Components Source Doxazosin Mesylate 2020-01-06 02:45:39 Yes Ina Olivas 1 tablet [facility] Aspir-81 2020-01-06 02:45:39 Yes Ina Olivas 1 tablet [facility] Folic Acid 2020-01-06 02:45:39 Yes Ina Olivas TAKE 1 TABLET BY MOUTH ONCE A DAY [facility] Inflectra 2020-01-06 02:45:39 Yes Ina tejeda s directed [facility] Rosuvastatin Calcium 2020-01-06 02:45:39 Yes Ina Olivas 1 tablet [facility] Metoprolol Tartrate 2020-01-06 02:45:39 Yes Ina Maravilla s 1 tablet with food [facility] Terbinafine HCl 2020-01-06 02:45:39 Yes Ina Olivas 1 tablet [facility] PredniSONE 2019-12-19 00:00:00 Yes Ina Olivas 1 tablet [facility] Metoprolol Tartrate 2019-11-24 02:47:47 Yes Ina Maravilla s 1 tablet with food [facility] [address] PredniSONE 2019-09-12 00:00:00 Yes Ina Olivas 1 tablet [facility] Prednisone Taper 2019-08-23 00:00:00 Yes Ina Olivas 3 tablets for 5 days, 2 tablets for 5 days and then 1 tablet for 5 days [facility] Prednisone Taper 2019-07-10 00:00:00 Yes Urszula Smith 3 tablets for 5 days, 2 tablets for 5 days and then 1 tablet for 5 days [facility] Atorvastatin Calcium 2018-10-22 03:48:00 Yes Becca Friedman 1 tablet [facility] Metoprolol Succinate ER 2018-07-20 03:47:42 Yes Becca Camejo allace 1 tablet [facility] Methotrexate (Anti-Rheumatic) 2018-07-20 00:00:00 Yes Mi sty Horn 6 tablets [facility] Methotrexate (Anti-Rheumatic) 2018-07-20 00:00:00 Yes Consuelo renaldo Olivas 10 tablets [facility] Simponi Aria 2018-07-19 00:00:00 Yes Becca Rodriguezace 2mg/kg at 220 lbs (199.6mg) [facility] Pravastatin Sodium 2017-07-06 03:47:49 Yes Becca Friedman 1 tablet [facility] Folic Acid 2017-06-10 00:00:00 Yes Becca Friedman 1 tablet [facility] Folic Acid 2016-09-14 00:00:00 Yes Altaf Rodriguezer 1 tablet [facility] Methotrexate (Anti-Rheumatic) 2016-01-14 00:00:00 Yes Rader Friedman 6 tablets [facility] Methotrexate (Anti-Rheumatic) 2016-01-14 00:00:00 Yes Flora Meek 4 tablets [facility] Doxazosin Mesylate 2015-10-15 03:52:44 Yes Altaf Meek 1 tablet [facility] Pravastatin Sodium 2015-10-15 03:52:44 Yes Altaf Meek 1 tablet [facility] Folic Acid 2015-10-10 00:00:00 Yes Altaf Rodriguezer 1 tablet [facility] Methotrexate 2015-10-10 00:00:00 Yes Altaf Meek four tabs [facility] Tramadol 2014-02-23 02:56:00 Yes Oscar Mullins one t ab [facility] Ciprofloxacin 2014-02-23 02:56:00 Yes Oscar Mullins 5 ml [facility] Methotrexate 2014-01-17 00:00:00 Yes Altaf Meek take 6 pills once weekly [facility] Methotrexate 2013-12-24 00:00:00 Yes Oscarkanchan Mckeone 5 tablets [facility] Folic Acid 2012-10-21 00:00:00 Yes Oscar Mullins as directed [facility] Aspirin 81 Mg Tab.chew Aspirin 81 Mg Tab.chew Yes 81 Daily [facility] Atorvastatin Calcium 40 Mg Tablet Atorvastatin Calcium 40 Mg Tablet Yes 40 Bedtime [facility] Doxazosin Mesylate 2 Mg Tablet Doxazosin Mesylate 2 Mg Tablet Yes 1 Daily [facility] Ibuprofen 200 Mg Capsule Ibuprofen 200 Mg Capsule Yes 600 Three Times Daily With Meals [facility] Metoprolol Succinate 25 Mg Tab.er.24h Metoprolol Succinate 25 Mg Ta b.er.24h Yes 25 Daily [facility] Pantoprazole Sodium (Protonix) 40 Mg Tablet. Pantopr azole Sodium (Protonix) 40 Mg Tablet. Yes 40 Daily [facility] Carvedilol (Coreg) 3.125 Mg Tab, 3.125 Mg Oral Carvedi lol (Coreg) 3.125 Mg Tab, 3.125 Mg Oral 2017-10-23 00:00:00 No 3.125 Twice A Da y [facility] Doxazosin Mesylate 4 Mg Tablet, 4 Mg Oral Doxazosin Me sylate 4 Mg Tablet, 4 Mg Oral 2017-10-21 00:00:00 No 4 Bedtime [facility] Pravastatin Sodium 20 Mg Tablet, 20 Mg Oral Pravastati n Sodium 20 Mg Tablet, 20 Mg Oral 2017-10-21 00:00:00 No 20 Daily [facility] Vital Signs Vital Name Observation Time Observation Value Comments Source Weight 2020-01-04 13:45:00 [facility] Height 2020-01-04 13:45:00 [facility] Temperature Oral (F) 2020-01-04 13:45:00 99.3 F [facility] Heart Rate 2020-01-04 13:45:00 [facility] Diastolic (mm Hg) 2020-01-04 13:45:00 [facility] Systolic (mm Hg) 2020-01-04 13:45:00 [facility] Weight 2019-11-09 13:30:00 [facility] Height 2019-11-09 13:30:00 [facility] Temperature Oral (F) 2019-11-09 13:30:00 97.6 F [facility] Heart Rate 2019-11-09 13:30:00 [facility] Diastolic (mm Hg) 2019-11-09 13:30:00 [facility] Systolic (mm Hg) 2019-11-09 13:30:00 [facility] Weight 2019-09-12 14:00:00 [facility] Height 2019-09-12 14:00:00 [facility] Temperature Oral (F) 2019-09-12 14:00:00 97.4 F [facility] Heart Rate 2019-09-12 14:00:00 [facility] Diastolic (mm Hg) 2019-09-12 14:00:00 [facility] Systolic (mm Hg) 2019-09-12 14:00:00 [facility] Weight 2019-07-10 15:45:00 [facility] Height 2019-07-10 15:45:00 [facility] Temperature Oral (F) 2019-07-10 15:45:00 99.0 F [facility] Heart Rate 2019-07-10 15:45:00 [facility] Diastolic (mm Hg) 2019-07-10 15:45:00 [facility] Systolic (mm Hg) 2019-07-10 15:45:00 [facility] Weight 2019-05-22 14:15:00 [facility] Height 2019-05-22 14:15:00 [facility] Temperature Oral (F) 2019-05-22 14:15:00 97.4 F [facility] Heart Rate 2019-05-22 14:15:00 [facility] Diastolic (mm Hg) 2019-05-22 14:15:00 [facility] Systolic (mm Hg) 2019-05-22 14:15:00 [facility] Weight 2019-03-27 13:30:00 [facility] Height 2019-03-27 13:30:00 [facility] Temperature Oral (F) 2019-03-27 13:30:00 97.8 F [facility] Heart Rate 2019-03-27 13:30:00 [facility] Diastolic (mm Hg) 2019-03-27 13:30:00 [facility] Systolic (mm Hg) 2019-03-27 13:30:00 [facility] Weight 2018-10-17 16:00:00 [facility] Height 2018-10-17 16:00:00 [facility] Temperature Oral (F) 2018-10-17 16:00:00 96.8 F [facility] Heart Rate 2018-10-17 16:00:00 [facility] Diastolic (mm Hg) 2018-10-17 16:00:00 [facility] Systolic (mm Hg) 2018-10-17 16:00:00 [facility] Weight 2018-07-19 14:00:00 [facility] Height 2018-07-19 14:00:00 [facility] Temperature Oral (F) 2018-07-19 14:00:00 97.0 F [facility] Heart Rate 2018-07-19 14:00:00 [facility] Diastolic (mm Hg) 2018-07-19 14:00:00 [facility] Systolic (mm Hg) 2018-07-19 14:00:00 [facility] Weight 2017-06-29 15:45:00 [facility] Height 2017-06-29 15:45:00 [facility] Temperature Oral (F) 2017-06-29 15:45:00 97.5 F [facility] Heart Rate 2017-06-29 15:45:00 [facility] Diastolic (mm Hg) 2017-06-29 15:45:00 [facility] Systolic (mm Hg) 2017-06-29 15:45:00 [facility] Weight 2015-10-10 17:00:00 [facility] Height 2015-10-10 17:00:00 [facility] Temperature Oral (F) 2015-10-10 17:00:00 97.4 F [facility] Weight 2013-12-22 15:30:00 [facility] Height 2013-12-22 15:30:00 [facility] Temperature Oral (F) 2013-12-22 15:30:00 97.2 F [facility] Heart Rate 2013-12-22 15:30:00 [facility] Diastolic (mm Hg) 2013-12-22 15:30:00 [facility] Systolic (mm Hg) 2013-12-22 15:30:00 [facility] Procedures Procedure Date / Time Performed Performing Clinician [facility] e Computed tomography of chest with contrast 2017-10-21 00:00: 00 LESLEY KOHLI [facility] L HRT ARTERY/VENTRICLE ANGIO 2017-09-29 00:00:00 LESLEY KOHLI [facility] Encounters Start Date/Time End Date/Time Encounter [facility]counter ID Source 2020-01-04 08:45:00 2020-01-04 08:45:00 Outpatient Altaf Meek MD [place] [id number] Satinder Meek MD 2019-12-19 14:18:00 2019-12-19 14:18:00 Outpatient Altaf MADDOX [id number] Satinder Meek MD 2019-12-19 14:03:00 2019-12-19 14:03:00 Outpatient Altaf Meek MD PA [id number] Satinder Meek MD 2019-12-19 09:13:00 2019-12-19 09:13:00 Outpatient Altaf Meek MD PA [id number] Satinder Meek MD 2019-12-08 11:09:00 2019-12-08 11:09:00 Outpatient Altaf Meek MD PA [id number] Satinder Meek MD 2019-12-04 10:49:00 2019-12-04 10:49:00 Outpatient Altaf Meek MD PA [id number] Satinder Meek MD 2019-11-09 08:30:00 2019-11-09 08:30:00 Outpatient Altaf Meek MD PA [id number] Satinder Meek MD 2019-09-12 08:00:00 2019-09-12 08:00:00 Outpatient Altaf MADDOX [id number] Satinder Meek MD 2019-08-23 11:33:00 2019-08-23 11:33:00 Outpatient MD VARSHA Whittaker MD [place] [id number] Satinder Meek MD 2019-07-10 10:45:00 2019-07-10 10:45:00 Outpatient Altaf Meek MD PA [id number] Satinder Meek MD 2019-07-10 07:42:00 2019-07-10 07:42:00 Outpatient MD VARSHA Whittaker MD PA [id number] Satinder Meek MD 2019-06-14 12:08:00 2019-06-14 12:08:00 Outpatient MD VARSHA Whittaker MD [place] [id number] Satinder Meek MD 2019-05-22 08:15:00 2019-05-22 08:15:00 Outpatient Altaf Meek MD PA [id number] Satinder Meek MD 2019-03-27 09:07:00 2019-03-27 09:07:00 Outpatient Altaf Meek MD PA [id number] Satinder Meek MD 2019-03-27 08:30:00 2019-03-27 08:30:00 Outpatient Altaf MADDOX [id number] Satinder Meek MD 2019-03-22 17:18:00 2019-03-22 17:18:00 Outpatient Altaf MADDOX [id number] Satinder Meek MD 2019-01-17 21:10:00 2019-01-17 21:10:00 Outpatient Altaf Meek MD PA [id number] Satinder Meek MD 2019-01-11 11:19:00 2019-01-11 11:19:00 Outpatient Altaf Meek MD PA [id number] Satinder Meek MD 2018-11-24 08:36:00 2018-11-24 08:36:00 Outpatient Altaf Meek MD PA [id number] Satinder Meek MD 2018-10-24 12:25:00 2018-10-24 12:25:00 Outpatient Altaf Meek MD PA [id number] Stainder Meek MD 2018-10-17 11:34:00 2018-10-17 11:34:00 Outpatient Altaf Meek MD PA [id number] Satinder Meek MD 2018-10-17 10:00:00 2018-10-17 10:00:00 Outpatient Altaf Meek MD PA [id number] Satinder Meek MD 2018-10-14 08:22:00 2018-10-14 08:22:00 Outpatient Altaf Meek MD PA [id number] Satinder Meek MD 2018-07-27 16:12:00 2018-07-27 16:12:00 Outpatient Altaf Meek MD PA [id number] Satinder Meek MD 2018-07-22 14:40:00 2018-07-22 14:40:00 Outpatient Altaf Meek MD PA [id number] Satinder Meek MD 2018-07-19 15:43:00 2018-07-19 15:43:00 Outpatient Altaf MADDOX [id number] Satinder Meek MD 2018-07-19 09:08:00 2018-07-19 09:08:00 Outpatient Altaf MADDOX [id number] Satinder Meek MD 2018-07-19 08:56:00 2018-07-19 08:56:00 Outpatient Altaf Meek MD PA [id number] Satinder Meek MD 2018-07-19 08:00:00 2018-07-19 08:00:00 Outpatient Altaf MADDOX [id number] SAMIR Meek MD 2017-10-21 16:55:00 2017-10-23 10:13:00 Discharged Inpatient (obs) ER ANDREY BARRETT [facility] [id number] [facility] 2017-09-29 07:21:00 2017-09-29 07:21:00 Registered Surgical Day Care [facility] [id number] [facility] 2017-06-29 09:45:00 2017-06-29 09:45:00 Outpatient Altaf Meek MD PA [id number] Satinder Meek MD 2017-06-11 14:34:00 2017-06-11 14:34:00 Outpatient Altaf MADDOX [id number] Satinder Meek MD 2017-06-08 15:54:00 2017-06-08 15:54:00 Outpatient Altaf MADDOX [id number] SAMIR Meek MD 2016-09-14 10:24:00 2016-09-14 10:24:00 Outpatient MD Altaf Whittaker MD [id number] Satinder Meek MD 2016-05-22 09:14:00 2016-05-22 09:14:00 Outpatient MD Altaf Whittaker MD [id number] SAMIR Meek MD 2016-05-11 09:47:00 2016-05-11 09:47:00 Outpatient MD Altaf Whittaker MD [id number] SAMIR Meek MD 2016-04-15 08:20:00 2016-04-15 08:20:00 Outpatient MD Altaf Whittaker MD [id number] SAMIR Meek MD 2016-01-29 11:11:00 2016-01-29 11:11:00 Outpatient MD Altaf Whittaker MD [id number] Satinder Meek MD 2015-10-10 11:00:00 2015-10-10 11:00:00 Outpatient MD Altaf Whittaker MD [id number] Satinder Meek MD 2015-10-10 09:20:00 2015-10-10 09:20:00 Outpatient MD Altaf Whittaker MD [id number] Satinder Meek MD 2014-05-28 14:17:00 2014-05-28 14:17:00 Outpatient MD Altaf Whittaker MD [id number] Satinder Meek MD 2014-03-12 10:26:00 2014-03-12 10:26:00 Outpatient MD Altaf Whittaker MD [id number] Satinder Meek MD 2014-01-15 09:28:00 2014-01-15 09:28:00 Outpatient MD Altaf Whittaker MD [id number] Satinder Meek MD 2013-12-25 08:46:00 2013-12-25 08:46:00 Outpatient MD Altaf Whittaker MD [id number] Satinder Meek MD 2013-12-24 15:13:00 2013-12-24 15:13:00 Outpatient MD Altaf Whittaker MD [id number] Satinder Meek MD 2013-12-22 10:30:00 2013-12-22 10:30:00 Outpatient MD Altaf Whittaker MD [id number] Satinder Meek MD Results Test Description Test Time Test Comments Results Result Comments Source US THYROID 2019-08-10 08:34:00 [place] [address] Patient Name: GARFIELD CHA MR #: [id number] : 1955 Age/Sex: 64/M Req #: [id number] Adm Physician: Ordered by: MIGUELITO SILVA MD, MD Report #: [id number] Location: Room/Bed: Procedure: [id number] US/US THYROID Exam Date: 08/10/19 Exam Time: [...] Item Creatine Kinase MB (test code = 37581-9) 0.90 0-5.0 [facility]roponin [id number] 15:13:00* Test Item Value Reference Range Interpretation Comments Troponin I (test code = DWZ6643) -0.001 0-0.300 [facility]Creatine [id number] 15:06:00* Test Item Value Reference Range Interpretation Comments Creatine Kinase (test code = 2157-6) 72 30-200 [facility] Slxvk7285-12-11 06:42:00* Test Item Value Reference Range Interpretation Comments Sodium Level (test code = 2951-2) 145 136-145 [facility]Potassium [id number] 06:42:00* Test Item Value Reference Range Interpretation Comments Potassium Level (test code = 2823-3) 4.8 3.5-5.1 [facility]Chloride [id number] 06:42:00* Test Item Value Reference Range Interpretation Comments Chloride Level (test code = 2075-0) 108 98-107 H [facility]vineCarbon Dioxide [id number] 06:42:00* Test Item Value Reference Range Interpretation Comments Carbon Dioxide Level (test code = 2028-9) 27 22-29 [facility]vineAnion [id number] 06:42:00* Test Item Value Reference Range Interpretation Comments Anion Gap (test code = 62436-4) 14.8 8-16 [facility]vineBlood Urea [id number] 06:42:00* Test Item Value Reference Range Interpretation Comments Blood Urea Nitrogen (test code = 3094-0) 14 7-26 [facility]vineCreatinine2018-03-09 06:42:00* Test Item Value Reference Range Interpretation Comments Creatinine (test code = 2160-0) 1.11 0.72-1.25 [facility]vineBUN/Creatinine Pdgka5408-17-82 06:42:00* Test Item Value Reference Range Interpretation Comments BUN/Creatinine Ratio (test code = 3097-3) 13 6-25 [facility]vineEstimat Glomerular Filtration Rate 2017-10-22 06:42:00* Test Item Value Reference Range Interpretation Comments Estimat Glomerular Filtration Rate (test code = 70111-3) 60- >60 Ranges were taken from the National Kidney Disease Education Program and the [facility] [employer] literature.Reference ranges:60 or greater: Mnyicp38-19 ( for 3 consecutive months): Chronic kidney disease 15 or less: Kidney failureBaylor Scott & [facility] – GrapevineGlucose Eqkfx1195-91-71 06:42:00* Test Item Value Reference Range Interpretation Comments Glucose Level (test code = MXO2714) 91 74-118 [facility]vineCalcium Hjuda1926-87-03 06:42:00* Test Item Value Reference Range Interpretation Comments Calcium Level (test code = 55874-6) 9.0 8.4-10.2 [facility]vineMagnesium [id number] 06:42:00* Test Item Value Reference Range Interpretation Comments Magnesium Level (test code = 77776-4) 2.2 1.3-2.1 H [facility] GrapevineTotal Wwhytcwrp2767-64-49 06:42:00* Test Item Value Reference Range Interpretation Comments Total Bilirubin (test code = 1975-2) 1.5 0.2-1.2 H [facility]vineAspartate Amino Transf (AST/SGOT) 2017-10-22 06:42:00* Test Item Value Reference Range Interpretation Comments Aspartate Amino Transf (AST/SGOT) (test code = Aspartate Amino Transf (AST/SGOT)) 18 5-34 [facility]vineAlanine Aminotransferase (ALT/SGPT) 2017-10-22 06:42:00* Test Item Value Reference Range Interpretation Comments Alanine Aminotransferase (ALT/SGPT) (test code = 1742-6) 18 0-55 [facility] GrapevineTotal Zqbolrv1483-17-01 06:42:00* Test Item Value Reference Range Interpretation Comments Total Protein (test code = 2885-2) 6.6 6.5-8.1 [facility]vineAlbumin2018-03-09 06:42:00* Test Item Value Reference Range Interpretation Comments Albumin (test code = 1751-7) 3.7 3.5-5.0 [facility]vineGlobulin2018-03-09 06:42:00* Test Item Value Reference Range Interpretation Comments Globulin (test code = 34860-0) 2.9 2.3-3.5 [facility]vineAlbumin/Globulin Oebck1491-90-41 06:42:00 * Test Item Value Reference Range Interpretation Comments Albumin/Globulin Ratio (test code = 1759-0) 1.3 0.8-2.0 [facility]vineAlkaline Vcorwrcxcyj7819-92-12 06:42:00* Test Item Value Reference Range Interpretation Comments Alkaline Phosphatase (test code = 6768-6) 58 40-150 [facility] G[facility]vineTriglycerides Kajgk1658-08-71 06:42:00* Test Item Value Reference Range Interpretation Comments Triglycerides Level (test code = 2571-8) 76 0-149 [facility]vineCholesterol Bjliq9201-63-90 06:42:00* Test Item Value Reference Range Interpretation Comments Cholesterol Level (test code = 2093-3) 130 0-199 Less than 200 mg/dL Low Gktf815 - 239 mg/dL Borderline Ynrf608 m g/dl and greater High Risk [facility] GrapevineLDL Fjrduvzpexc9940-96-04 06:42:00* Test Item Value Reference Range Interpretation Comments LDL Cholesterol (test code = 2089-1) 72 60-130 [facility] GrapevineHDL Akyqwpmfzog6173-44-48 06:42:00* Test Item Value Reference Range Interpretation Comments HDL Cholesterol (test code = 2085-9) 43 40-60 [facility]vineCholesterol/HDL Etzid5816-43-99 06:42:00 * Test Item Value Reference Range Interpretation Comments Cholesterol/HDL Ratio (test code = 9830-1) 3.0 3.9-4.7 L [facility] G[facility]vineWhite Blood Qztua9798-97-06 06:20:00* Test Item Value Reference Range Interpretation Comments White Blood Count (test code = 6690-2) 9.96 4.8-10.8 [facility] G[facility]vineRed Blood Xeauq5882-47-75 06:20:00* Test Item Value Reference Range Interpretation Comments Red Blood Count (test code = 789-8) 4.01 4.3-5.7 L [facility]vineHemoglobin2018-03-09 06:20:00* Test Item Value Reference Range Interpretation Comments Hemoglobin (test code = 87915-9) 13.9 14.0-18.0 L [facility]vineHematocrit2018-03-09 06:20:00* Test Item Value Reference Range Interpretation Comments Hematocrit (test code = 4544-3) 40.6 38.2-49.6 [facility] GrapevineMean Corpuscular Bclfdb7460-64-27 06:20:00* Test Item Value Reference Range Interpretation Comments Mean Corpuscular Volume (test code = 787-2) 101.2 81-99 H [facility] GrapevineMean Corpuscular Rypgfnbsxe3693-12-69 06:20:00* Test Item Value Reference Range Interpretation Comments Mean Corpuscular Hemoglobin (test code = 785-6) 34.7 28-32 H [facility] GrapevineMean Corpuscular Hemoglobin Concent 2017-10-22 06:20:00* Test Item Value Reference Range Interpretation Comments Mean Corpuscular Hemoglobin Concent (test code = 786-4) 34.2 31-35 [facility] GrapevineRed Cell Distribution Njugi1304-33-66 06:20:00* Test Item Value Reference Range Interpretation Comments Red Cell Distribution Width (test code = 83706-2) 12.5 11.7 -14.4 [facility] GrapevinePlatelet Rgght6568-17-99 06:20:00* Test Item Value Reference Range Interpretation Comments Platelet Count (test code = 777-3) 177 140-360 [facility] GrapevineNeutrophils (%) (Auto)2017-10-22 06:20:00 * Test Item Value Reference Range Interpretation Comments Neutrophils (%) (Auto) (test code = 13645-4) 61.7 38.7-80.0 [facility]vineLymphocytes (%) (Auto)2017-10-22 06:20:00 * Test Item Value Reference Range Interpretation Comments Lymphocytes (%) (Auto) (test code = 736-9) 27.9 18.0-39.1 [facility] (Auto)2017-10-22 06:20:00* Test Item Value Reference Range Interpretation Comments Monocytes (%) (Auto) (test code = 5905-5) 7.8 4.4-11.3 [facility]osinophils (%) (Auto)2017-10-22 06:20:00 * Test Item Value Reference Range Interpretation Comments Eosinophils (%) (Auto) (test code = 713-8) 2.0 0.0-6.0 [facility] (%) (Auto)2017-10-22 06:20:00* Test Item Value Reference Range Interpretation Comments Basophils (%) (Auto) (test code = 706-2) 0.4 0.0-1.0 [facility]vineIM GRANULOCYTES %2017-10-22 06:20:00* Test Item Value Reference Range Interpretation Comments IM GRANULOCYTES % (test code = IM GRANULOCYTES %) 0.2 0.0- 1.0 [facility]vineNeutrophils # (Auto)2017-10-22 06:20:00* Test Item Value Reference Range Interpretation Comments Neutrophils # (Auto) (test code = 751-8) 6.1 2.1-6.9 [facility]vineLymphocytes # (Auto)2017-10-22 06:20:00* Test Item Value Reference Range Interpretation Comments Lymphocytes # (Auto) (test code = 87677-7) 2.8 1.0-3.2 [facility] # (Auto)2017-10-22 06:20:00* Test Item Value Reference Range Interpretation Comments Monocytes # (Auto) (test code = 742-7) 0.8 0.2-0.8 [facility]osinophils # (Auto)2017-10-22 06:20:00* Test Item Value Reference Range Interpretation Comments Eosinophils # (Auto) (test code = 711-2) 0.2 0.0-0.4 [facility]ophils # (Auto)2017-10-22 06:20:00* Test Item Value Reference Range Interpretation Comments Basophils # (Auto) (test code = 704-7) 0.0 0.0-0.1 [facility]vineAbsolute Immature Granulocyte (auto 2017-10-22 06:20:00* Test Item Value Reference Range Interpretation Comments Absolute Immature Granulocyte (auto (mamie t code = Absolute Immature Granulocyte (auto) 0.02 0-0.1 [facility]vineUrine [id number] 16:36:00* Test Item Value Reference Range Interpretation Comments Urine WBC (test code = 5821-4) 0-5 0-5 [facility]vineU[facility] [id number] 16:36:00* Test Item Value Reference Range Interpretation Comments Urine RBC (test code = 75450-6) 6-10 0-5 H [facility]vineU[facility] [id number] 16:36:00* Test Item Value Reference Range Interpretation Comments Urine Bacteria (test code = 50142-6) NONE NONE [facility] Epithelial [id number] 16:36:00 * Test Item Value Reference Range Interpretation Comments Urine Epithelial Cells (test code = 03943-0) NONE NONE [facility] [id number] 16:36:00* Test Item Value Reference Range Interpretation Comments Urine Mucus (test code = 8247-9) MODERATE RARE H [facility]vineThyroid Stimulating Hormone (TSH) 2017-10-21 16:31:00* Test Item Value Reference Range Interpretation Comments Thyroid Stimulating Hormone (TSH) (test code = 64674-9) 1.276 0.350-4.940 [facility]vineB-Type Natriuretic [id number] 16:22:00* Test Item Value Reference Range Interpretation Comments B-Type Natriuretic Peptide (test code = 22552-6) 17.5 0-100 [facility]vineLipase2018-03-08 16:12:00* Test Item Value Reference Range Interpretation Comments Lipase (test code = 3040-3) 63 8-78 [facility]vine[facility] [id number] 16:04:00* Test Item Value Reference Range Interpretation Comments Urine Color (test code = 5778-6) YELLOW YELLOW [facility] [id number] 16:04:00* Test Item Value Reference Range Interpretation Comments Urine Clarity (test code = 99885-8) CLEAR CLEAR [facility]vineU[facility] Specific [id number] 16:04:00 * Test Item Value Reference Range Interpretation Comments Urine Specific [place] (test code = 5811-5) 1.015 1.010-1.02 5 [facility]vineU[facility] [id number] 16:04:00* Test Item Value Reference Range Interpretation Comments Urine pH (test code = 35179-7) 6 5-7 [facility] Leukocyte [id number] 16:04:00* Test Item Value Reference Range Interpretation Comments Urine Leukocyte Esterase (test code = 5799-2) NEGATIVE NEGATIVE [facility] [id number] 16:04:00* Test Item Value Reference Range Interpretation Comments Urine Nitrite (test code = 55194-2) NEGATIVE NEGATIVE [facility] [id number] 16:04:00* Test Item Value Reference Range Interpretation Comments Urine Protein (test code = 5804-0) NEGATIVE NEGATIVE [facility] Glucose (UA)2017-10-21 16:04:00* Test Item Value Reference Range Interpretation Comments Urine Glucose (UA) (test code = 2349-9) NEGATIVE NEGATIVE [facility] [id number] 16:04:00* Test Item Value Reference Range Interpretation Comments Urine Ketones (test code = 76007-6) NEGATIVE NEGATIVE [facility] [id number] 16:04:00* Test Item Value Reference Range Interpretation Comments Urine Urobilinogen (test code = 40618-4) 0.2 0.2-1 [facility] [id number] 16:04:00* Test Item Value Reference Range Interpretation Comments Urine Bilirubin (test code = 1978-6) NEGATIVE NEGATIVE [facility] [id number] 16:04:00* Test Item Value Reference Range Interpretation Comments Urine Blood (test code = 76766-1) 2+ NEGATIVE H [facility]vineProthrombin [id number] 16:03:00* Test Item Value Reference Range Interpretation Comments Prothrombin Time (test code = 5902-2) 12.9 11.9-14.5 [facility]vineProthromb Time International Ratio 2017-10-21 16:03:00* Test Item Value Reference Range Interpretation Comments Prothromb Time International Ratio (test code = 6301-6) 1.05 Oral Anticoagulant Therapy INR Values:1. Low Intensity Therapy 1.5 - 2.02 . Moderate Intensity Therapy 2.0 - 3.03. High Intensity Therapy(1) 2.5 - 3. 54. High Intensity Therapy(2) 3.0 - 4.05. Panic Value INR > 5.0 [facility]vineActivated Partial Thromboplast Time 2017-10-21 16:03:00* Test Item Value Reference Range Interpretation Comments Activated Partial Thromboplast Time (test code = 89747-7) 29.3 23.8-35.5 [facility]vineCT [place]ST [place] [address] Patient Name: GARFIELD CHA MR #: [id number] : 1955 Age/Sex: 62/M Req #: [id number] Adm Physician: ANDREY BARRETT MD Ordered by: LESLEY KOHLI MD Report #: [id number] Location: [facility] Room/Bed: [place] [address] Procedure: [id number] CT/CT CHEST W Exam Date: [...] TO: LESLEY KOHLI MD CHEST SINGLE (PORTABLE) [place] [address] Patient Name: GARFIELD CHA MR #: [id number] : 1955 Age/Sex: 62/M Req #: [id number] Adm Physician: ANDREY BARRETT MD Ordered by: FEDE VIEYRA, NALLELY VIEYRA Report #: [id number] Loc ation: [facility] Room/Bed: [facility] Procedure: [id number] DX/CHEST SINGLE (PORTABLE) Exam Date: 10/21/17 Exam [...]
[2020-01-20] MEDS ORDERED: ENOXAPARIN SODIUM INJ 100 MG/ML SYR SC ONE (11:45)
[2020-01-20] MEDS ORDERED: SODIUM CHLORIDE 0.9% 50ML 50 ML ONE (11:54)
[2020-01-20] MEDS ORDERED: IOPAMIDOL 370 MG/ML 200 ML INFUS..BTL INJ ONE (11:55)
--- NOTE | 2020-01-20 11:58 | Emergency Department Note ---
History of Present Illnes History of Present Illness Chief Complaint: Chest Pain History of Present Illness This is a 64 year old male PATIENT IN FROM HOME WITH COMPLAINTS OF CHEST PAIN AND SHORTNESS OF BREATH X 4 HOURS; STATES HE FELL A COUPLE OF DAYS AGO BECAUSE HE FELT FAINT AND WEAK. STATES WAS SEEN PCP AND WAS SENT TO CARDIOLOGY. PATIENT STATES THAT HIS EKG AND LABS WERE NORMAL. PATIENT ALERT AND ORIENTED, RESP EVEN AND NONLABORED, APPEARS IN NO DISTRESS, RATES PAIN 4/10. 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 Onset (how long ago): day(s) (A FEW DAYS, WORSE TODAY X 4 HRS, INTERMITTENT LASTING 1 MIN WITH ASSOC SOB, NO RADIATION) Location: MID STERNAL CHEST Quality: PRESSURE Radiation: non-radiation Severity: moderate Onset quality: gradual Duration (how long): hour(s) (4 HRS) Timing of current episode: intermittent Progression: waxing and waning Chronicity: new Context: recent illness Relieving factors: none Exacerbating factors: none Associated symptoms: shortness of breath, syncope (NEAR SYNCOPE 2 DAYS AGO) Treatments prior to arrival: none Past Medical/Family History Physician Review I have reviewed the patient's past medical and family history. Any updates have been documented here. Past Medical History Recent Fever: No Clinical Suspicion of Infectio: No New/Unexplained Change in Ment: No Past Medical History: Hypertension, Hyperlipedemia Other Medical History: Cholesterol RA BHP Past Surgical History: None Social History Smoking Cessation: Never Smoker Counseling Performed: No Alcohol Use: Occasional Any Illegal Drug Use: No TB Exposure/Symptoms: No Physically hurt or threatened: No Family History Family history of heart diseas: No Other Last Tetanus: OOD Any Pre-Existing Lines (PICC,: No Is patient up to date on immun: Yes Last Flu: OOD Last Pneumovax: OOD Review of Systems Review of Systems Constitutional: no symptoms EENTM: no symptoms Cardiovascular: chest pain, syncope (NEAR SYNCOPE) Respiratory: dyspnea (WITH CP) Gastrointestinal: no symptoms Genitourinary: no symptoms Musculoskeletal: no symptoms Neurological: no symptoms Psychological: no symptoms Endocrine: no symptoms Hematological/Lymphatic: no symptoms Review of other systems All other systems reviewed and negative. Physical Exam Related Data Allergies: Coded Allergies: No Known Allergies (Unverified , 10/09/13) Triage Vital Signs Vital Signs Date Time Temp Pulse Resp B/P (MAP) Pulse Ox O2 Delivery O2 Flow Rate FiO2 01/20/20 10:38 97.5 62 18 144/86 100 Vital signs reviewed: Yes Physical Exam CONSTITUTIONAL Constitutional: well-developed, well-nourished HENT HENT: normocephalic, atraumatic, oropharynx clear/moist, nose normal HENT L/R: left ext ear normal, right ext ear normal EYES Eyes: PERRL, conjunctivae normal NECK Neck: ROM normal PULMONARY Pulmonary: effort normal, breath sounds normal CARDIOVASCULAR Cardiovascular: regular rhythm, heart sounds normal, normal rate, other (SOME REPRODUCIBLE TENDERNESS OVER LOWER MID-STERNUM) GASTROINTESTINAL Abdominal: soft, nontender, bowel sounds normal GENITOURINARY Genitourinary: exam deferred SKIN Skin: warm, dry MUSCULOSKELETAL Musculoskeletal: ROM normal NEUROLOGICAL Neurological: alert, oriented x 3, no gross motor or sensory deficits PSYCHOLOGICAL Psychological: mood/affect normal, judgement normal Results Laboratory Result Diagram: 01/20/20 1051 01/20/20 1051 Laboratory Laboratory Tests Test 01/20/20 10:51 White Blood Count 3.71 x10e3/uL (4.8-10.8) Red Blood Count 4.14 x10e6/uL (4.3-5.7) Hemoglobin 14.0 g/dL (14.0-18.0) Hematocrit 41.7 % (38.2-49.6) Mean Corpuscular Volume 100.7 fL (81-99) Mean Corpuscular Hemoglobin 33.8 pg (28-32) Mean Corpuscular Hemoglobin Concent 33.6 g/dL (31-35) Red Cell Distribution Width 13.3 % (11.7-14.4) Platelet Count 143 x10e3/uL (140-360) Neutrophils (%) (Auto) 62.5 % (38.7-80.0) Lymphocytes (%) (Auto) 25.6 % (18.0-39.1) Monocytes (%) (Auto) 7.5 % (4.4-11.3) Eosinophils (%) (Auto) 3.8 % (0.0-6.0) Basophils (%) (Auto) 0.3 % (0.0-1.0) Neutrophils # (Auto) 2.3 (2.1-6.9) Lymphocytes # (Auto) 1.0 (1.0-3.2) Monocytes # (Auto) 0.3 (0.2-0.8) Eosinophils # (Auto) 0.1 (0.0-0.4) Basophils # (Auto) 0.0 (0.0-0.1) Absolute Immature Granulocyte (auto 0.01 x10e3/uL (0-0.1) Prothrombin Time 11.7 seconds (11.9-14.5) Prothromb Time International Ratio 0.81 Activated Partial Thromboplast Time 30.2 seconds (23.8-35.5) D-Dimer Quantitative (PE/DVT) 802 ng/mL (0-400) Sodium Level 137 mmol/L (136-145) Potassium Level 3.9 mmol/L (3.5-5.1) Chloride Level 102 mmol/L (98-107) Carbon Dioxide Level 26 mmol/L (22-29) Anion Gap 12.9 mmol/L (8-16) Blood Urea Nitrogen 9 mg/dL (7-26) Creatinine 1.13 mg/dL (0.72-1.25) Estimat Glomerular Filtration Rate > 60 ML/MIN (60-) BUN/Creatinine Ratio 8 (6-25) Glucose Level 109 mg/dL (74-118) Calcium Level 9.4 mg/dL (8.4-10.2) Total Bilirubin 0.6 mg/dL (0.2-1.2) Aspartate Amino Transf (AST/SGOT) 26 IU/L (5-34) Alanine Aminotransferase (ALT/SGPT) 25 IU/L (0-55) Alkaline Phosphatase 64 IU/L (40-150) Creatine Kinase 58 IU/L (30-200) Creatine Kinase MB 1.20 ng/mL (0-5.0) Troponin I < 0.001 ng/mL (0-0.300) B-Type Natriuretic Peptide 21.3 pg/mL (0-100) Total Protein 7.8 g/dL (6.5-8.1) Albumin 4.0 g/dL (3.5-5.0) Globulin 3.8 g/dL (2.3-3.5) Albumin/Globulin Ratio 1.1 (0.8-2.0) Lab results reviewed: Yes Laboratory comments ELEVATED D-DIMER - WILL GET CT CHEST PE PROTOCOL Imaging Imaging results reviewed: Yes Impressions EXAM: CT Chest WITH contrast INDICATION: Chest pain, query pulmonary embolism. COMPARISON: CT chest 10-21-2017. TECHNIQUE: Abdomen and pelvis were scanned utilizing a multidetector helical scanner from the lung base to the pubic symphysis after administration of IV contrast. Coronal and sagittal reformations were obtained. IV CONTRAST: 100 mL of Isovue-370 ORAL CONTRAST: None COMPLICATIONS: None RADIATION DOSE: Total DLP: 644.8 mGy*cm Estimated effective dose: (DLP x 0.015 x size factor) mSv CTDIvol has been reviewed. It is below the limits set by the Radiation Protocol Committee (RPC). FINDINGS: LINES/ TUBES: None. PULMONARY ARTERIES: No evidence of pulmonary embolism to the level of the segmental pulmonary arteries. The subsegmental pulmonary arteries are not well opacified. The main pulmonary artery is normal in size. LUNGS AND AIRWAYS: Minimal atelectasis in both lung bases. Otherwise, lungs are clear. Airways are normal. PLEURA: No pleural effusion or pneumothorax. HEART AND MEDIASTINUM: The thyroid gland is normal. No hilar or mediastinal lymphadenopathy. The left atrium is mildly enlarged. There is no pericardial effusion. The thoracic aorta is normal in caliber and associated with minimal calcifications in the arch. Mild scattered coronary atherosclerosis. UPPER ABDOMEN: Limited contrast-enhanced views of the upper abdomen. Status post cholecystectomy. BONES: The visualized bony thorax is within normal limits. SOFT TISSUES: Unremarkable. IMPRESSION: No evidence of pulmonary embolism to the level of the segmental pulmonary arteries. Unchanged mildly dilated left atrium. Signed by: Dr. 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 Assessment & Plan Reassessment Reassessment PT WITH RISK FACTORS OF CHOL, HTN, RA, AND FAMHX PRESENTS WITH CP AND NEAR SYNCOPE A FEW DAYS AGO - CHECK CBC, CHEM'S, ECG, CARDIAC ENZYMES, D-DIMER - R/O STEMI/NSTEMI, PE, ANGINA, MUSCULOSKELETAL PAIN, ELECTROLYTE ABNL, ANEMIA Assessment & Plan Final Impression: (1) Chest pain Assessment & Plan SPOKE WITH DR BARRETT FOR ADMISSION Depart Disposition: ADMITTED Last Vital Signs Date Time Temp Pulse Resp B/P (MAP) Pulse Ox O2 Delivery O2 Flow Rate FiO2 01/20/20 11:43 74 16 99 01/20/20 10:38 97.5 144/86 Home Meds Reported Medications Pantoprazole Sodium* (PROTONIX) 40 Mg Tablet.dr, 40 MG PO DAILY, TAB 10/23/17 Ibuprofen (IBUPROFEN) 200 Mg Capsule, 600 MG PO TIDWM, TAB 10/23/17 Doxazosin Mesylate (DOXAZOSIN MESYLATE) 2 Mg Tablet, 1 MG PO DAILY, #30 TAB 10/21/17 Aspirin (ASPIRIN) 81 Mg Tab.chew, 81 MG PO DAILY 10/21/17 Metoprolol Succinate (METOPROLOL SUCCINATE) 25 Mg Tab.er.24h, 25 MG PO DAILY 10/21/17 Atorvastatin Calcium (ATORVASTATIN CALCIUM) 40 Mg Tablet, 40 MG PO HS, #30 TAB 10/21/17 Medications in the ED Pantoprazole Sodium 40 mg ONCE STAT IV ; Start 01/20/20 at 10:51; Stop 01/20/20 at 11:03; Status DC Ketorolac Tromethamine 30 mg ONCE STAT IV ; Start 01/20/20 at 10:51; Stop 01/20/20 at 11:03; Status DC Sodium Chloride 1,000 ml @ 0 mls/hr Q0M STAT IV ; Start 01/20/20 at 10:51; Stop 01/20/20 at 10:54; Status DC Aspirin 81 mg PRN ONCE PO ; Start 01/20/20 at 11:00; Stop 01/20/20 at 11:02; Status DC JESSICA BRUNSON MD Jan 20, 2020 11:58
--- NOTE | 2020-01-20 12:13 | Diagnostic Imaging Report ---
EXAMINATION: CHEST SINGLE (PORTABLE) INDICATION: CP COMPARISON: Chest radiograph 10-21-2017. CT chest 10-21-2017. FINDINGS: TUBES and LINES: None. LUNGS: Lungs are mildly hypoinflated. Minimal left basilar opacity, likely atelectasis. There is no evidence of pneumonia or pulmonary edema. PLEURA: No pleural effusion or pneumothorax. HEART AND MEDIASTINUM: The cardiomediastinal silhouette is unremarkable. BONES AND SOFT TISSUES: No acute osseous lesion. Soft tissues are unremarkable. UPPER ABDOMEN: No free air under the diaphragm. IMPRESSION: No acute thoracic abnormality. Signed by: Dr. Oxana Sheridan MD on 01/20/2020 12:10 PM
--- NOTE | 2020-01-20 12:25 | Diagnostic Imaging Report ---
EXAM: CT Chest WITH contrast INDICATION: Chest pain, query pulmonary embolism. COMPARISON: CT chest 10-21-2017. TECHNIQUE: Abdomen and pelvis were scanned utilizing a multidetector helical scanner from the lung base to the pubic symphysis after administration of IV contrast. Coronal and sagittal reformations were obtained. IV CONTRAST: 100 mL of Isovue-370 ORAL CONTRAST: None COMPLICATIONS: None RADIATION DOSE: Total DLP: 644.8 mGy*cm Estimated effective dose: (DLP x 0.015 x size factor) mSv CTDIvol has been reviewed. It is below the limits set by the Radiation Protocol Committee (RPC). FINDINGS: LINES/ TUBES: None. PULMONARY ARTERIES: No evidence of pulmonary embolism to the level of the segmental pulmonary arteries. The subsegmental pulmonary arteries are not well opacified. The main pulmonary artery is normal in size. LUNGS AND AIRWAYS: Minimal atelectasis in both lung bases. Otherwise, lungs are clear. Airways are normal. PLEURA: No pleural effusion or pneumothorax. HEART AND MEDIASTINUM: The thyroid gland is normal. No hilar or mediastinal lymphadenopathy. The left atrium is mildly enlarged. There is no pericardial effusion. The thoracic aorta is normal in caliber and associated with minimal calcifications in the arch. Mild scattered coronary atherosclerosis. UPPER ABDOMEN: Limited contrast-enhanced views of the upper abdomen. Status post cholecystectomy. BONES: The visualized bony thorax is within normal limits. SOFT TISSUES: Unremarkable. IMPRESSION: No evidence of pulmonary embolism to the level of the segmental pulmonary arteries. Unchanged mildly dilated left atrium. Signed by: Dr. Oxana Sheridan MD on 01/20/2020 12:22 PM
--- NOTE | 2020-01-20 13:40 | NUR ---
Received patient from ER via wheelchair, mask on. Alert and oriented x4, verbalizing chest pain/tightness 4/10 constant but tolerable. Tele monitor #[address] Oriented to room, call light, bathroom, TV, and visiting policy. Verbalized understanding. No apparent distress otherwise, in stable condition.
[2020-01-20 14:05] VITALS: BP 118/86
[2020-01-20 14:14] VITALS: BP 118/86
[2020-01-20 16:13] VITALS: BP 111/69
--- NOTE | 2020-01-20 17:50 | NUR ---
Dr. Curt Whitley at bedside to see patient for cardiac consult. Ordered for ECHO, stress test, and to hold Lopressor due to sinus meaghan in the high 40's and low 50's. Orders read back and verified. Patient verbalized understanding and improvement of chest pain with PRN morphine. Call light within reach.
[2020-01-20] MEDS ORDERED: METOPROLOL TARTRATE 25 MG TAB PO SCH (18:00)
--- NOTE | 2020-01-20 19:20 | NUR ---
received report from day nurse. patient is resting comfortably in the bed. bed is in the lowest position and call light is within reach. will continue to monitor patient.
[2020-01-20 20:42] VITALS: BP 92/58
[2020-01-20] MEDS: FAMOTIDINE 20 MG/2 ML VIAL IV SCH (21:15)
[2020-01-20] MEDS: ATORVASTATIN 40 MG TAB PO SCH (21:15)
[2020-01-20 21:16] VITALS: BP 92/58
[2020-01-20 21:43] LABS: CREATINE KINASE 45 IU/L (30-200)
[2020-01-21] VITALS (8 sets, daily range): BP systolic 98–125; BP diastolic 56–71
--- NOTE | 2020-01-21 02:07 | History and Physical ---
PRIMARY CARE PHYSICIAN: Dr. Santhosh Callahan CHIEF COMPLAINT: Chest pain 3-4 days. HISTORY OF PRESENT ILLNESS: This is a 64-year-old male with past medical history of hypertension, high cholesterol, and rheumatoid arthritis, who presented to the ER with complaints of increasing chest pain. He reports the chest pain initially started 3-4 days ago. He went to his PCP and was sent to a senior mechanical estimator, Dr. Elder eng and was going to have outpatient workup, but was instructed to present to the ER if chest pain worsens or continues to reoccur. So today, he reports the pain was much more frequent and severe, so presented to the ER for further evaluation. He reports that the pain is pressure like in the midsternum area lasting about 30-50 seconds. The pain is associated with dizziness, diaphoresis, and shortness of breath. He denies any nausea, vomiting, cough, fever, chills, recent ill contacts. He reports he also had a recent fall about a week ago. His knees get about and fell on his knees. He denies any other complaints, palpitation, or syncope. PAST MEDICAL HISTORY: 1. Hypertension. 2. High cholesterol. 3. Rheumatoid arthritis. PAST SURGICAL HISTORY: 1. He reports cholecystectomy. 2. Appendectomy. 3. Tonsillectomy. FAMILY MEDICAL HISTORY: He reports his twin brother has CAD with stents, he reports both parents also have heart disease. SOCIAL HISTORY: He denies any tobacco, alcohol, or illicit drug use. ALLERGIES: NO KNOWN DRUG ALLERGIES. REVIEW OF SYSTEMS: GENERAL: Dizziness. LUNGS: Shortness of breath, denies any cough. CARDIOVASCULAR: Chest pain. GI: No vomiting, diarrhea. Reports constipation. NEURO: Dizziness. SKIN: No rash. PHYSICAL EXAMINATION: VITAL SIGNS: Temperature 97.9, pulse is 48, respirations 18, blood pressure 118/86, pulse ox is 100% on room air. GENERAL: No acute distress. HEENT: Normocephalic, atraumatic. NECK: Supple. LUNGS: Clear to auscultation. CARDIOVASCULAR: Regular rate and rhythm. Bradycardic. GI: Soft and nontender. NEUROLOGIC: Alert, awake, and oriented x3. MUSCULOSKELETAL: Moves all extremities. SKIN: Dry and intact. PSYCH: Calm. LABORATORY DATA: WBC 3.71, RBC 4.1, hemoglobin 14.0, hematocrit 41.1, platelet 143. Sodium 137, potassium 3.9, BUN 9, creatinine 1.13, estimated GFR greater than 60. AST 26, ALT 25. CK 58, troponin 0.001. BNP 21.3. Albumin 4.0, globulin 3.8, PT 11.7, INR 0.81. D-dimer 802. Coronavirus PCR pending. IMAGING: Chest x-ray, no acute thoracic abnormalities. CT chest with contrast, no evidence of pulmonary embolism to the level of the , pulmonary arteries unchanged. Mildly dilated left atrium. IMPRESSION: 1. Chest pain, rule out acute coronary syndrome. Troponin x1 negative. No EKG changes. We will monitor on telemetry and continue to trend troponins. Cardiology has been consulted. Aspirin and nitroglycerin as needed. 2. Elevated D-dimer. CT chest was negative for PE. 3. Hypertension. We will resume his home dose of Cardura. Metoprolol was discontinued due to bradycardia. 4. High cholesterol. Continue statin. 5. History of rheumatoid arthritis. We will treat pain as needed with morphine. 6. Deep venous thrombosis prophylaxis. SCDs for now. He was given Lovenox in the ER. PLAN: To continue trending troponins, Cardiology has been consulted, echo and further workup to be followed. Dictated by MIRIAM Terrazas Corie Ruggiero MD MY/MODL /[id number] The patient was seen and examined on 01/20/20. Agree with the findings and plan as documented by MIRIAM Whitney. MAHNAZ
[2020-01-21 05:35] LABS: BASOPHILS % 0.3 % (0.0-1.0); EOSINOPHILS # (AUTO) 0.1 (0.0-0.4); HEMATOCRIT 36.2 % (38.2-49.6); HEMOGLOBIN 12.3 g/dL (14.0-18.0); LYMPHOCYTES # (AUTO) 1.2 (1.0-3.2); LYMPHOCYTES % 33.1 % (18.0-39.1); MEAN CORPUSCULAR HEMOGLOBIN 34.5 pg (28-32); MEAN CORPUSCULAR VOLUME 101.4 fL (81-99); MONOCYTES # (AUTO) 0.3 (0.2-0.8); MONOCYTES % 8.2 % (4.4-11.3); NEUTROPHILS # (AUTO) 1.9 (2.1-6.9); NEUTROPHILS % 54.1 % (38.7-80.0); PLATELET COUNT 115 x10e3/uL (140-360); RED BLOOD COUNT 3.57 x10e6/uL (4.3-5.7); RED CELL DISTRIBUTION WIDTH 13.3 % (11.7-14.4)
[2020-01-21 05:55] LABS: ANION GAP 11.4 mmol/L (8-16); BLOOD UREA NITROGEN 11 mg/dL (7-26); BUN/CREATININE RATIO 11 (6-25); CALCIUM 8.9 mg/dL (8.4-10.2); CARBON DIOXIDE 27 mmol/L (22-29); CHLORIDE 109 mmol/L (98-107); CHOLESTEROL 132 MD/DL (0-199); CREATININE, SERUM 1.01 mg/dL (0.72-1.25); EST GLOMERULAR FILTRATION RATE > 60 ML/MIN (60-); GLUCOSE 89 mg/dL (74-118); HDL CHOLESTEROL 44 MG/DL (40-60); LDL CHOLESTEROL 70 MG/DL (60-130); POTASSIUM 4.4 mmol/L (3.5-5.1); SODIUM 143 mmol/L (136-145); TRIGLYCERIDES 88 MG/DL (0-149)
[2020-01-21 06:18] LABS: CREATINE KINASE 41 IU/L (30-200)
--- NOTE | 2020-01-21 06:35 | NUR ---
patient is resting in the bed, bed is in the lowest position and call light is within reach. no distress noted.
--- NOTE | 2020-01-21 07:00 | NUR ---
Received bedside shift report from off going night nurse. Patient in stable condition, no s/s of distress noted. No pain voiced.Telemetry applied. Bed in lowest position and locked. Call light within reach.
[2020-01-21] MEDS: PANTOPRAZOLE SOD 40 MG TABEC PO SCH (08:51)
[2020-01-21] MEDS: FAMOTIDINE 20 MG/2 ML VIAL IV SCH ×2 (08:51→20:34)
[2020-01-21] MEDS: DOXAZOSIN MESYLATE 2 MG TAB PO SCH (08:51)
[2020-01-21] MEDS: ASPIRIN 81 MG CHEW TAB PO SCH (08:51)
[2020-01-21] MEDS ORDERED: ASPIRIN 81 MG ENTERIC COATED PO SCH (09:00)
[2020-01-21] MEDS ORDERED: ONDANSETRON HCL 4 MG ORAL DISINTEGRATING TAB PO PRN (13:30)
--- NOTE | 2020-01-21 18:52 | NUR ---
Completed bedside shift report and rounding with oncoming night nurse. Patient in stable condition, no s/s of distress noted. No pain voiced. Telemetry applied. Bed in lowest position and locked. Call light within reach.
--- NOTE | 2020-01-21 20:27 | NUR ---
received call from radiology informing me that stress test will not be taking place on Wednesday due to technical issues. stress test has been scheduled for Wednesday.
[2020-01-21] MEDS: ATORVASTATIN 40 MG TAB PO SCH (20:34)
--- NOTE | 2020-01-21 22:20 | Progress Note ---
DATE: 01/21/2020 TECHNICAL ASSISTANT: Dr. Palacios with Cardiology. CHIEF COMPLAINT: Constant chest pain. SUBJECTIVE: The patient reports chest pain is improving, rating it 1 to 2/10, but still present. He denies any shortness of breath, fever, chills, dizziness, or palpitations. PHYSICAL EXAMINATION: VITAL SIGNS: Temperature 97.8, pulse is 52, respirations 20, blood pressure 99/64, and pulse ox is 99% on room air. GENERAL: No acute distress. HEENT: Normocephalic and atraumatic. NECK: Supple. LUNGS: Clear to auscultation. CARDIOVASCULAR: Regular rate and rhythm, bradycardic. GI: Soft and nontender. NEUROLOGIC: Alert, awake, and oriented x3. MUSCULOSKELETAL: Moves all extremities. SKIN: Dry and intact. PSYCH: Calm. LABORATORY DATA: WBC 3.53, hemoglobin 12.3, hematocrit 36.2, and platelet 115. Sodium 143, potassium 4.4, BUN is 11, and creatinine 1.01. Troponin negative x3. BNP 21.3. Triglycerides 88, cholesterol 132, and LDL 70. COVID negative. IMPRESSION: 1. Chest pain, rule out acute coronary syndrome. Troponin x3 were negative. Continue to monitor on tele. Cardiology has been consulted and plans to do a stress test in the morning. Continue aspirin and nitroglycerin as needed. 2. Elevated D-dimer. CT chest was negative for pulmonary embolism. 3. Hypertension. Continue Cardura. Beta blockers discontinued due to bradycardia. 4. High cholesterol. Continue statin. 5. History of rheumatoid arthritis. NSAIDs as needed. 6. Thrombocytopenia. Platelet 115. We will continue to monitor. No signs of bleeding noted. 7. Deep vein thrombosis prophylaxis. SCDs for now. The patient is ambulatory. PLAN: Continue to monitor on tele, echo has been done and awaiting results. Stress test plan for tomorrow morning. Dictated by MIRIAM Terrazas Corie Ruggiero MD MY/MODL /[id number]
[2020-01-22] VITALS (8 sets, daily range): BP systolic 106–129; BP diastolic 61–81
--- NOTE | 2020-01-22 06:16 | Consultation ---
DATE OF CONSULTATION: 01/20/2020 Cardiology Consult Note REASON FOR CONSULT: Chest pain. CHIEF COMPLAINT: Chest pain. HISTORY OF PRESENT ILLNESS: This is a 64-year-old man with history of hypertension, hyperlipidemia, rheumatoid arthritis, who presents with worsening chest pain over the past several days. He describes the chest pain pressure-like, severe. Also, reports some intermittent dizziness and diaphoresis associated with chest pain. He was seen in clinic and was ordered outpatient stress test, which was to be done on February 14. However, the patient's chest pain has worsened and he presented to the ER. PAST MEDICAL HISTORY: As described above. REVIEW OF SYSTEMS: As per HPI, otherwise negative. SOCIAL HISTORY: Does not smoke, drink, or abuse drugs. FAMILY HISTORY: Noncontributory. OUTPATIENT MEDICATIONS: Reviewed. ALLERGIES: NO KNOWN DRUG ALLERGIES. OBJECTIVE: VITAL SIGNS: Temperature afebrile, pulse 65, respiratory rate 18, blood pressure 118/86, saturating 100% on room air. GENERAL: A middle-aged man, in no acute distress. CARDIOVASCULAR: Regular rate and rhythm. No murmurs, rubs, or gallops. Bradycardic. LUNGS: Clear to auscultation bilaterally. ABDOMEN: Soft, nontender, nondistended. NEURO AND PSYCH: Alert and oriented to person, place, and time. Normal affect. INPATIENT MEDICATIONS: Reviewed. LABORATORY DATA: Reviewed. Troponins negative x3 from today reviewed shows sinus bradycardia. ASSESSMENT AND PLAN: 1. Chest pain. 2. Bradycardia. PLAN: Stop metoprolol. We will see if the heart rate improves. Continue aspirin and atorvastatin with Wednesday. Cardiac risk stratification. Thank you for this consult. We will continue to follow. MD BOO WallaceP/MODL /[id number]
--- NOTE | 2020-01-22 06:29 | NUR ---
patient is resting in the bed. no signs of distress noted. bed is in lowest position.
--- NOTE | 2020-01-22 07:00 | NUR ---
RECEIVED PATIENT AWAKE RESTING IN BED NO S/S OF DISTRESS. BED LOW, WHEELS LOCKED, SIDE RAILS X2. CALL LIGHT IN REACH WILL CONTINUE TO MONITOR PATIENT.
[2020-01-22] MEDS: FAMOTIDINE 20 MG/2 ML VIAL IV SCH ×2 (08:38→21:37)
[2020-01-22] MEDS: DOXAZOSIN MESYLATE 2 MG TAB PO SCH (08:38)
[2020-01-22] MEDS: ASPIRIN 81 MG CHEW TAB PO SCH (08:38)
[2020-01-22] MEDS: PANTOPRAZOLE SOD 40 MG TABEC PO SCH (08:38)
[2020-01-22] MEDS ORDERED: REGADENOSON 0.4 MG/5 ML SYR IV ONE (16:49)
--- NOTE | 2020-01-22 20:00 | NUR ---
ROUNDS DONE, RECEIVED REPORT FROM AM NURSE, PATIENT RESTING IN BED, NO DISTRESS NOTED. WILL CONTINUE TO MONITOR. REMAIN ON TELEMETRY.
[2020-01-22] MEDS: ATORVASTATIN 40 MG TAB PO SCH (21:37)
[2020-01-23] VITALS (7 sets, daily range): BP systolic 109–132; BP diastolic 68–85
--- NOTE | 2020-01-23 | NUR ---
CONTINUE RESTING, NO COMPLAINTS, CALL LIGHT IN REACH. REMAIN ON TELEMETRY.
--- NOTE | 2020-01-23 01:01 | Progress Note ---
DATE: 01/22/2020 CONSULTANTS: Dr. Palacios with Cardiology. CHIEF COMPLAINT: Chest pain, recurrent. SUBJECTIVE: The patient reports chest pain is improved significantly. He rates pain 1/10. He is resting in bed with no acute distress, no shortness of breath, fever, chills, dizziness, or palpitations. He is n.p.o. for stress test this evening per Cardiology. PHYSICAL EXAMINATION: VITAL SIGNS: Temperature 97.7, pulse is 60, respirations 18, blood pressure 108/67, pulse ox is 100% on room air. GENERAL: No acute distress. HEENT: Normocephalic, atraumatic. NECK: Supple. LUNGS: Clear to auscultation. CARDIOVASCULAR: S1, S2 heard. Bradycardic. GI: Soft and nontender. NEUROLOGIC: Alert, awake, and oriented x3. MUSCULOSKELETAL: Moves all extremities. SKIN: Dry and intact. PSYCH: Calm. IMPRESSION: 1. Chest pain, rule out acute coronary syndrome. Troponin x3 were negative. Continue to monitor on tele. Continue aspirin and nitroglycerin p.r.n. Cardiology has been consulted and plans stress test this evening. 2. Elevated D-dimer. CT chest was negative for pulmonary embolism. 3. Hypertension. Stable on Cardura. Beta red is discontinued due to bradycardia. 4. High cholesterol. Continue statin. 5. History of rheumatoid arthritis. Resume NSAIDs as needed. 6. Thrombocytopenia. No signs of bleeding noted. We will continue to monitor. 7. Deep vein thrombosis prophylaxis. SCDs for now. The patient is ambulatory. PLAN: Plan is to continue current treatment, awaiting stress test later today. Anticipate discharge home once cleared by Cardiology. Dictated by MIRIAM Terrazas Corie Ruggiero MD MY/MODL /[id number]
--- NOTE | 2020-01-23 06:24 | NUR ---
CONTINUE RESTING, NO COMPLAINTS OF CHEST PAINS, CALL LIGHT REMAIN IN REACH. REMAIN ON TELEMETRY.
--- NOTE | 2020-01-23 06:48 | NUR ---
REPORT GIVEN TO AM NURSE.
--- NOTE | 2020-01-23 07:00 | NUR ---
RECEIVED PATIENT AWAKE RESTING IN BED NO S/S OF DISTRESS. BED LOW, WHEELS LOCKED, SIDE RAILS X2. CALL LIGHT IN REACH WILL CONTINUE TO MONITOR PATIENT.
[2020-01-23] MEDS: FAMOTIDINE 20 MG/2 ML VIAL IV SCH ×2 (07:59→21:54)
[2020-01-23] MEDS: ASPIRIN 81 MG CHEW TAB PO SCH (07:59)
[2020-01-23] MEDS: PANTOPRAZOLE SOD 40 MG TABEC PO SCH (08:00)
[2020-01-23] MEDS: DOXAZOSIN MESYLATE 2 MG TAB PO SCH (08:00)
--- NOTE | 2020-01-23 19:26 | NUR ---
RECEIVED REPORT FROM 7AM NURSE.
[2020-01-23] MEDS: ATORVASTATIN 40 MG TAB PO SCH (21:54)
--- NOTE | 2020-01-23 23:21 | Progress Note ---
DATE: 01/23/2020 CONSULTANTS: Dr. Palacios with Cardiology. CHIEF COMPLAINT: Recurrent chest pain. SUBJECTIVE: Chest pain is improved per patient. He is sitting up, awaiting on the second part of the stress test imaging. He denies any shortness of breath, nausea, vomiting, fever, or chills. PHYSICAL EXAMINATION: VITAL SIGNS: Temperature 97.8, pulse is 65, respirations 16, blood pressure 109/74, pulse ox is 96% on room air. GENERAL: No acute distress. HEENT: Normocephalic and atraumatic. NECK: Supple. LUNGS: Clear to auscultation. CARDIOVASCULAR: S1, S2 heard. GI: Soft and nontender. NEUROLOGIC: Alert, awake, and oriented x3. MUSCULOSKELETAL: Moves all extremities. SKIN: Dry and intact. IMPRESSION: 1. Chest pain, rule out acute coronary syndrome. Troponin x3 negative. No changes on tele. Stress test underway per Cardiology. 2. Elevated D-dimer. CT chest was negative for pulmonary embolism. No signs of deep vein thrombosis in the lower extremities. 3. Hypertension. Stable on Cardura. Discontinued beta-blockers due to bradycardia. 4. High cholesterol. Continue statin. 5. History of rheumatoid arthritis. Resume NSAIDs as needed. 6. Thrombocytopenia. No signs of bleeding noted. We will continue to monitor. 7. Deep vein thrombosis prophylaxis. SCDs for now. The patient is ambulatory. PLAN: To continue current treatment. Awaiting on stress test results. May discharge home once cleared by Cardiology. Dictated by MIRIAM Terrazas Corie Ruggiero MD MY/MODL /[id number]
[2020-01-24] VITALS (13 sets, daily range): BP systolic 100–147; BP diastolic 67–84
--- NOTE | 2020-01-24 01:56 | Progress Note ---
DATE: 01/23/2020 Cardiology Progress Note SUBJECTIVE: No major events overnight. Awaiting for the second part of the stress test today. OBJECTIVE: VITAL SIGNS: Temperature afebrile, pulse 62, respiratory rate 18, blood pressure 118/76, saturating 99% on room air. GENERAL: Middle-aged man in no acute distress. CARDIOVASCULAR: Regular rate and rhythm. No murmurs, rubs, or gallops. LUNGS: Clear to auscultation anteriorly. ABDOMEN: Soft nontender nondistended. NEURO AND PSYCH: Alert and oriented to person, place, and time. Normal affect. INPATIENT MEDICATIONS: Reviewed. LABORATORY DATA: Reviewed. TELEMETRY DATA: Reviewed, shows normal sinus rhythm, heart rate now improved to 62. ASSESSMENT: 1. Chest pain. 2. Bradycardia. PLAN: Heart rate now improved. Beta blockers, continue to hold. Stress test results are still pending as he has not had a second set of imaging yet. If stress test is normal, the patient is okay to be discharged from a cardiovascular standpoint. Echocardiogram showed normal LV ejection fraction. No significant valvular abnormalities. He has already been ruled out for acute TN with serial troponins. MD DANIELA Wallace/ERIKA /[id number]
--- NOTE | 2020-01-24 04:31 | NUR ---
REMAIN RESTING, NO COMPLAINTS OF CHEST PAINS. REMAIN ON TELEMETRY, CALL LIGHT IN REACH. WILL CONTINUE TO MONITOR.
--- NOTE | 2020-01-24 07:00 | NUR ---
bedside shift report received pt in stable condition, denies pain at this time, updated on poc voiced understanding, call light in reach will continue to monitor to monitor
--- NOTE | 2020-01-24 07:13 | NUR ---
REPORT GIVEN TO AM NURSE.
[2020-01-24] MEDS: FAMOTIDINE 20 MG/2 ML VIAL IV SCH (09:27)
[2020-01-24] MEDS: PANTOPRAZOLE SOD 40 MG TABEC PO SCH (09:27)
[2020-01-24] MEDS: ASPIRIN 81 MG CHEW TAB PO SCH (09:27)
[2020-01-24] MEDS: DOXAZOSIN MESYLATE 2 MG TAB PO SCH (09:28)
[2020-01-24] MEDS ORDERED: MIDAZOLAM HCL 2 MG/2 ML VIAL ONE (11:51)
[2020-01-24] MEDS ORDERED: VERAPAMIL HCL 2.5 MG/ML 2 ML VIAL ONE (11:51)
[2020-01-24] MEDS ORDERED: HEPARIN SOD (PORCINE) 1000 UNIT/ML 30ML ONE (11:51)
[2020-01-24] MEDS ORDERED: LIDOCAINE HCL 2% LOCAL 20 ML VIAL ONE (11:51)
[2020-01-24] MEDS ORDERED: FENTANYL CITRATE/PF 100MCG/2 ML INJ ONE (11:51)
[2020-01-24] MEDS ORDERED: SODIUM CHLORIDE 0.9% 1000ML 1,000 ML ONE (11:52)
[2020-01-24] MEDS ORDERED: HEPARIN SOD/SOD CHLORIDE 2,000 ML ONE (11:52)
[2020-01-24] MEDS ORDERED: NITROGLYCERIN/D5W 200 MCG/ML 250 ML ONE (11:52)
[2020-01-24] MEDS ORDERED: IOPAMIDOL 370 MG/ML 200 ML INFUS..BTL INJ ONE (11:52)
--- NOTE | 2020-01-24 12:00 | NUR ---
DOWN TO DIRECTOR OF ANALYTICS LEFT IN STABLE CONDITION
--- NOTE | 2020-01-24 13:02 | NUR ---
1302pm RECEIVING NOTE [employer]............................................................... Bedside report received from Asim COOPER. Identifierx2. Alert oriented and appropriate, PERRLA, respirations even and unlabored to room air. Pulses x4 extremities equal and strong. Pedal pulses PT/DP X4 and marked. Cap fill brisk < 3 sec. [facility] Diagnostic only Dr Whitley Rt TR band approach.NO gross issues pain,pallor,pressure or dysrhythmia. Skin warm and dry integrity. Rt AC appears D/I IV 20g 100cchr presents healthy w/o s/s of infiltration or complaint. Abdomen soft and supple. pt offered toileting, denies need to urinate or defecate. No personal affects with patient. No family at bedside. Pt verbalizes understanding of POC. Currently w/o complaint of pain or need. DR Whitley ok dc after 2hrs TR band removal approx 1430pm. Pt vocalized like to stay night.ds/rn
--- NOTE | 2020-01-24 13:30 | NUR ---
1330p Radial COMPRESSION REMOVAL NOTE: Initial Cuff volume -15 cc 1330p -3cc Removed No hematoma/bleeding noted with normal neurovascular function. 1345p -5cc Removed No hematoma/ bleeding noted with normal neurovascular function. 1400p -5cc Removed No hematoma/bleeding noted with normal neurovascular function. Air removal completed. Stasis achieved sterile 2x2,Tegaderm, Coban dressing No hematoma, bleeding noted with normal neurovascular function. Wrist splint in place. Pt instructed on POC. Ds/Rn
[2020-01-24] MEDS ORDERED: NITROGLYCERIN 0.4 MG SUBL ONE (14:04)
[2020-01-24] MEDS ORDERED: ACETAMINOPHEN 325 MG TAB ONE (14:06)
--- NOTE | 2020-01-24 14:45 | NUR ---
1445pm phone report to Lesly COOPER pt did have episode of C/O pressure to chest 2+ to mid chest " like I experienced at home" Diagnostic [facility] Dr Whitley NTG 1/150x1 sl and Tylenol 235x2 po for CP pain. Pt appears in no distress NSR vs stable.Report phoned and tele room notified. Transported via bed by Asim COOPER. Pt back to baseline orientation and tolerated po intake. Rt ac iv intact. No s/s infiltration. Saline locked.Pt was reviewed with TR band care. Aware of importance to remove reminder wrist support in am and care of potential bleed. NO gross issues pain, pain,pallor,pressure or dysrhythmia. ds/reza
--- NOTE | 2020-01-24 16:15 | NUR ---
SPOKE WITH DR. CARNEY RE: PT CHEST TIGHTNESS, INFORMED NURSE TIGHTNESS IS NOT FROM HEART, HEART CATH IS NEGATIVE AND PT OK TO DC HOME FROM HIS STANDPOINT, SPOKE WITH ROLANDO SUERO NP RE: WHAT VOLLEYBALL REFEREE INFORMED NURSE, PT TO DC HOME TODAY ONCE BEDREST IS FINISHED
[2020-01-24] MEDS ORDERED: NITROSTAT0.4 MG SL (16:27)
--- NOTE | 2020-01-24 23:20 | Discharge Summary ---
PRIMARY CARE PHYSICIAN: Dr. Santhosh Callahan. FINAL DISCHARGE DIAGNOSES: 1. Chest pain, ruled out acute coronary syndrome. 2. Elevated D-dimer. 3. Hypertension. 4. High cholesterol. 5. History of rheumatoid arthritis. 6. Thrombocytopenia. CONSULTANTS: Dr. Palacios with Cardiology. PROCEDURES: Underwent stress test and left heart catheterization with 30% occlusion in RCA. HISTORY: Per HPI. HOSPITAL COURSE: This is a 64-year-old male with a with past medical history of hypertension, high cholesterol, and rheumatoid arthritis, who presented to the ER with complaints of chest pain. He reports chest pain has been present for over a week intermittently. 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 The pain worsened, so he presented to the ER. Troponin x3 were negative, stress test was done which showed some abnormality, so underwent left heart catheterization. Noted 30% occlusion of the RCA. He is recommended to continue medical treatment. He was also noted to have elevated D-dimer, CTA chest was negative for a PE. No signs of DVT in the lower extremities, no swelling, no redness or pain. He was also noted to have bradycardia, so beta-blockers were stopped. Today, he is stable, vital signs stable, afebrile, we will discharge home to follow up with PCP and Cardiology in 1 to 2 weeks. PHYSICAL EXAMINATION: VITAL SIGNS: Temperature 97.8, pulse is 71, respirations 18, blood pressure 103/67, pulse ox is 98% on room air. GENERAL: No acute distress. LUNGS: Clear to auscultation. CARDIOVASCULAR: S1, S2 are regular. GI: Soft and nontender. NEUROLOGIC: Alert, awake, and oriented x3. MUSCULOSKELETAL: Moves all extremities. No redness, no edema. CONDITION AT DISCHARGE: Improved and stable. DISCHARGE MEDICATIONS: Please see medication reconciliation list. FOLLOWUP: Follow up with PCP and Cardiology in 1 to 2 weeks, sooner if symptoms worsen. TIME SPENT: Total time of discharge is 33 minutes. Dictated by MIRIAM Terrazas Christinching Jayce Ruggiero MD MY/MODL /[id number] cc: Santhosh JOYA
--- NOTE | 2020-02-02 21:50 | Myoview Stress Test ---
DATE OF STUDY: 01/20/2020 19:28:00 Stress Test - Treadmill ONLY STUDY PERFORMED: Rest stress single-isotope SPECT imaging with pharmacologic stress and gated SPECT imaging. INDICATION: Chest pain. PROCEDURE DETAIL: Pharmacologic stress testing was performed with regadenoson per the usual protocol. His heart rate was at 61 beats per minute at rest and yasmin to 96 beats per minute at stress. The baseline blood pressure was 137/72, which increased to 142/61. Both of which are normal response for regadenoson. Baseline 12-lead electrocardiogram showed normal sinus rhythm. There were no ST changes suggestive of myocardial ischemia. No cardiac arrhythmias were noted throughout the protocol. Myocardial perfusion imaging was performed at rest following injection of 33 millicuries of Tetrofosmin. At peak pharmacologic effect, the patient was injected with 30 millicuries of tetrofosmin. Gated post stress tomographic imaging was performed. FINDINGS: The overall quality is fair. Left ventricular cavity appears normal in size on rest and stress images. SPECT images demonstrate normal myocardial perfusion. Gated SPECT imaging reveals normal myocardial thickening and wall motion. Left ventricular ejection fraction was calculated at 66%. IMPRESSION: Normal myocardial perfusion. Normal left ventricular ejection fraction. DO EBENEZER Alvarado/ERIKA /[id number]
--- NOTE | 2020-03-13 22:05 | Operative Report ---
DATE OF PROCEDURE: 01/20/2020 SURGEON: Bin Whitley MD CARDIAC CATHETERIZATION REPORT PROCEDURES PERFORMED: 1. Coronary angiography. 2. Left heart catheterization. PROCEDURE DETAILS: The patient was brought to the cardiac catheterization laboratory in a fasting state. Right wrist was prepped and draped in a sterile fashion. A 6-Serbian Slender sheath was inserted in the right radial artery using modified Seldinger technique. Coronary angiography was performed using a 5-Serbian Kath radial catheter. LV angiography was performed using the same Kath radial catheter. All catheters removed over wire. Access site was closed using a TR band. There were no immediate complications. SIGNIFICANT FINDINGS: Left main; large vessel, no significant CAD. LAD; large vessel goes to the apex, one significant diagonal branch, luminal irregularities only. Left circumflex, nondominant vessel. One significant OM branch, luminal irregularities only. RCA; large vessel, dominant vessel, 30% proximal RCA lesion, otherwise no significant CAD. GRAFTS AND IMPLANTS: None. SPECIMENS REMOVED: None. ESTIMATED BLOOD LOSS: 5 mL. FINAL RECOMMENDATIONS: 1. Continue optimal medical therapy and risk factor control. 2. Follow up in clinic 2 weeks post procedure. Bin Whitley MD KVP/MODL /[id number]
== END 2020-01-24 18:58 | disposition home or self-care (01) ==
LOC: ER 10:36 → ERHOLD 11:13 → MED/SURG 14:03
PROVIDERS: ADMIT Internal Medicine; ATTEND Internal Medicine
DX: R07.9 Chest pain, unspecified (principal); I10 Essential (primary) hypertension; E78.5 Hyperlipidemia, unspecified; M06.9 Rheumatoid arthritis, unspecified; Z82.49 Family history of ischemic heart disease and other diseases of the circulatory system; D69.6 Thrombocytopenia, unspecified; Z11.59 Encounter for screening for other viral diseases
CPT/HCPCS: 36415 ×2; 71045; 71260; 78452; 80048; 80053; 80061; 82550 ×2; 82553 ×2; 83880; 84484 ×2; 85025 ×2; 85379; 85610; 85730; 87635; 93005; 93017; 93306; 93454; 99284; A9502; C1887 ×2; C1894; C9113; G0378 ×5; J1644; J1650; J1885; J2001; J2250; J2270; J2785; J3010; J7030 ×2; Q9967 ×2; S0164 ×4; 99152; U0002

== ENCOUNTER 2021-02-15 13:33 | Emergency (ER) | payer MEDICARE ==
[~2021-02-15] VITALS: Ht 188 cm; Wt 106.1 kg
[~2021-02-15 13:33] MED LIST changes: +NITROSTAT0.4 MG SL
[2021-02-15] MEDS ORDERED: SODIUM CHLORIDE 0.9% 1000ML 1,000 ML IV STA ×2 (14:11→17:21)
[2021-02-15] MEDS ORDERED: DICYCLOMINE HCL 20 MG/2 ML VIAL IM ONE ×2 (14:15→17:30)
[2021-02-15 14:56] LABS: BASOPHILS % 0.3 % (0.0-1.0); EOSINOPHILS # (AUTO) 0.2 (0.0-0.4); EOSINOPHILS % 3.2 % (0.0-6.0); HEMATOCRIT 40.9 % (38.2-49.6); HEMOGLOBIN 14.5 g/dL (14.0-18.0); LYMPHOCYTES % 17.5 % (18.0-39.1); MEAN CORPUSCULAR HGB CONC 35.5 g/dL (31-35); MEAN CORPUSCULAR VOLUME 101.5 fL (81-99); MONOCYTES # (AUTO) 0.7 (0.2-0.8); NEUTROPHILS # (AUTO) 3.9 (2.1-6.9); NEUTROPHILS % 66.7 % (38.7-80.0); PLATELET COUNT 148 x10e3/uL (140-360); RED BLOOD COUNT 4.03 x10e6/uL (4.3-5.7); RED CELL DISTRIBUTION WIDTH 12.6 % (11.7-14.4)
[2021-02-15 15:13] LABS: CLARITY,URINE HAZY (CLEAR); COLOR,URINE YELLOW (YELLOW)
[2021-02-15 15:14] LABS: BACTERIA,URINE FEW /HPF; EPITHELIAL CELLS,URINE FEW /LPF; KETONES,URINE NEGATIVE (NEGATIVE); LEUKOCYTE ESTERASE ,URINE NEGATIVE (NEGATIVE); NITRITE,URINE NEGATIVE (NEGATIVE); PROTEIN,URINE DIPSTICK NEGATIVE (NEGATIVE); URINE UROBILINOGEN 0.2 mg/dL (0.2 - 1); WBC,URINE (MAN) 0-5 /HPF (0-5)
[2021-02-15 15:46] LABS: ALANINE AMINOTRANSFERASE 14 IU/L (0-55); ALBUMIN 4.4 g/dL (3.5-5.0); ALBUMIN/GLOBULIN RATIO 1.4 (0.8-2.0); ALKALINE PHOSPHATASE 62 IU/L (40-150); ANION GAP 12.8 mmol/L (8-16); BLOOD UREA NITROGEN 11 mg/dL (7-26); BUN/CREATININE RATIO 9 (6-25); CALCIUM 9.4 mg/dL (8.4-10.2); CARBON DIOXIDE 25 mmol/L (22-29); CHLORIDE 106 mmol/L (98-107); CREATINE KINASE 176 IU/L (30-200); EST GLOMERULAR FILTRATION RATE 61 ML/MIN (60-); GLUCOSE 99 mg/dL (74-118); LIPASE 82 U/L (8-78); MAGNESIUM 2.3 MG/DL (1.3-2.1); POTASSIUM 3.8 mmol/L (3.5-5.1); SODIUM 140 mmol/L (136-145)
== END 2021-02-15 18:53 | disposition home or self-care (01) ==
LOC: ER 14:15
DX: R10.11 Right upper quadrant pain (principal); I10 Essential (primary) hypertension; E78.5 Hyperlipidemia, unspecified; M06.9 Rheumatoid arthritis, unspecified
CPT/HCPCS: 36415; 71045; 74176; 80053; 81001; 82550; 82553; 83690; 83735; 84484; 85025; 87086; 93005; 99284; C9113; J0500; J7030

== ENCOUNTER → 2021-02-20 | Outpatient (CLI) | payer MEDICARE | LOC: US 14:21 | PROVIDERS: ATTEND Urology | DX: R31.21 Asymptomatic microscopic hematuria (principal) | CPT/HCPCS: 76770 ==

== ENCOUNTER → 2023-10-13 | Day surgery (SDC) | payer MEDICARE ==
[2023-10-12 13:23] LABS: BASOPHILS % 0.5 % (0.0-1.0); EOSINOPHILS # (AUTO) 0.3 (0.0-0.4); EOSINOPHILS % 3.6 % (0.0-6.0); HEMATOCRIT 43.8 % (38.2-49.6); HEMOGLOBIN 14.7 g/dL (14.0-18.0); LYMPHOCYTES % 23.1 % (18.0-39.1); MEAN CORPUSCULAR HEMOGLOBIN 35.8 pg (28-32); MEAN CORPUSCULAR HGB CONC 33.6 g/dL (31-35); MEAN CORPUSCULAR VOLUME 106.6 fL (81-99); MONOCYTES # (AUTO) 0.8 (0.2-0.8); MONOCYTES % 9.7 % (4.4-11.3); NEUTROPHILS # (AUTO) 5.4 (2.1-6.9); NEUTROPHILS % 62.9 % (38.7-80.0); PLATELET COUNT 144 x10e3/uL (140-360); RED BLOOD COUNT 4.11 x10e6/uL (4.3-5.7); WHITE BLOOD COUNT 8.59 x10e3/uL (4.8-10.8)
[2023-10-12 13:34] LABS: ANION GAP 16.2 mmol/L (8-16); CALCIUM 9.2 mg/dL (8.4-10.2); CREATININE, SERUM 1.07 mg/dL (0.72-1.25); POTASSIUM 4.2 mmol/L (3.5-5.1)
[~2023-10-13] MED LIST changes: +DEXAMETHASONE SOD PHOS INJ 4 MG/ML SDV ONE; +FENTANYL CITRATE/PF 100MCG/2 ML INJ ONE; +FINASTERIDE5 MG PO; +FOLIC ACID0.4 MG PO; +GOLYTELY SOLU4000 M1 PO; +IOPAMIDOL 610MG/1ML 300 MG/ML VIAL IV ONE; +LIDOCAINE HCL 2% LOCAL INJ 5 ML SDV VIAL INJ ONE; +METHOTREXATE2.5 MG PO; +ONDANSETRON HCL INJ 2MG/ML 2ML 2 MG/ML VIAL ONE; +PROPOFOL IV EMULSION 10 MG/ML 20 ML VIAL ONE; +SENNA LAX8.6 MG PO; +SEVOFLURANE INHAL SOLN 250 ML PEN BTL ONE; +XELJANZ XR11 MG PO
[2023-10-13] MEDS: LACTATED RINGER'S 1,000 ML ONE (09:11)
[2023-10-13] MEDS: CEFTRIAXONE 1 GM VIAL ONE (09:12)
[2023-10-13] MEDS: GENTAMICIN 80MG/NS 100 ML 200 ML IV ONE (09:12)
[2023-10-13] MEDS: PHENAZOPYRIDINE HCL 100 MG TAB ONE (13:30)
[2023-10-13] MEDS: ACETAMINOPHEN/CODEINE 300MG - 30MG TAB ONE (13:30)
[2023-10-13 14:00] VITALS: BP 151/93; PULSE 79; RESP 18; O2SAT 98
== END | disposition home or self-care (01) ==
LOC: OR 09:00
PROVIDERS: ATTEND Urology
DX: N40.1 Benign prostatic hyperplasia with lower urinary tract symptoms (principal); N13.8 Other obstructive and reflux uropathy; R39.14 Feeling of incomplete bladder emptying; R39.16 Straining to void; R39.15 Urgency of urination; R35.1 Nocturia; N39.0 Urinary tract infection, site not specified; N48.6 Induration penis plastica; N32.89 Other specified disorders of bladder; I12.9 Hypertensive chronic kidney disease with stage 1 through stage 4 chronic kidney disease, or unspecified chronic kidney disease; N18.9 Chronic kidney disease, unspecified; E78.5 Hyperlipidemia, unspecified; K21.9 Gastro-esophageal reflux disease without esophagitis; M06.9 Rheumatoid arthritis, unspecified; Z01.810 Encounter for preprocedural cardiovascular examination; Z01.812 Encounter for preprocedural laboratory examination; Z01.818 Encounter for other preprocedural examination; Z79.82 Long term (current) use of aspirin; Z79.1 Long term (current) use of non-steroidal anti-inflammatories (NSAID); Z79.899 Other long term (current) drug therapy; Z68.31 Body mass index [BMI] 31.0-31.9, adult
CPT/HCPCS: 52005; C9740; 36415; 71046; 74420; 80048; 85025; 87086; 93005; C1758; J0696; J1100; J1580; J2001; J2405; L8699

== ENCOUNTER 2024-03-16 09:18 | Emergency (ER) | payer MEDICARE ==
[~2024-03-16] VITALS: Ht 188 cm; Wt 94.3 kg
[~2024-03-16 09:18] MED LIST changes: -DEXAMETHASONE SOD PHOS INJ 4 MG/ML SDV ONE; -FENTANYL CITRATE/PF 100MCG/2 ML INJ ONE; -IOPAMIDOL 610MG/1ML 300 MG/ML VIAL IV ONE; -LIDOCAINE HCL 2% LOCAL INJ 5 ML SDV VIAL INJ ONE; -ONDANSETRON HCL INJ 2MG/ML 2ML 2 MG/ML VIAL ONE; +PLAVIX75 MG PO; -PROPOFOL IV EMULSION 10 MG/ML 20 ML VIAL ONE; -SEVOFLURANE INHAL SOLN 250 ML PEN BTL ONE
[2024-03-16 09:30] VITALS: TEMP 97.1
[2024-03-16 09:51] LABS: BASOPHILS % 0.4 % (0.0-1.0); EOSINOPHILS # (AUTO) 0.3 (0.0-0.4); EOSINOPHILS % 2.5 % (0.0-6.0); HEMATOCRIT 46.3 % (38.2-49.6); HEMOGLOBIN 15.8 g/dL (14.0-18.0); LYMPHOCYTES # (AUTO) 2.2 (1.0-3.2); LYMPHOCYTES % 21.8 % (18.0-39.1); MEAN CORPUSCULAR HEMOGLOBIN 35.3 pg (28-32); MEAN CORPUSCULAR HGB CONC 34.1 g/dL (31-35); MEAN CORPUSCULAR VOLUME 103.6 fL (81-99); MONOCYTES # (AUTO) 0.8 (0.2-0.8); MONOCYTES % 8.3 % (4.4-11.3); NEUTROPHILS # (AUTO) 6.5 (2.1-6.9); NEUTROPHILS % 66.4 % (38.7-80.0); PLATELET COUNT 146 x10e3/uL (140-360); RED BLOOD COUNT 4.47 x10e6/uL (4.3-5.7); RED CELL DISTRIBUTION WIDTH 12.6 % (11.7-14.4); WHITE BLOOD COUNT 9.85 x10e3/uL (4.8-10.8)
[2024-03-16 10:28] LABS: ALBUMIN 3.9 g/dL (3.5-5.0); ALBUMIN/GLOBULIN RATIO 1.4 (0.8-2.0); CREATININE, SERUM 1.13 mg/dL (0.72-1.25); TOTAL PROTEIN 6.7 g/dL (6.5-8.1)
[2024-03-16] MEDS: DONNATAL/LIDOCAINE/MAALOX 30 ML SUSP PO ONE (11:14)
[2024-03-16] MEDS: BELLADONNA ALK/PHENOBARBITAL 5 ML UDC PO ONE (11:14)
[2024-03-16] MEDS: MAGNESIUM/ALUMINUM/SIMETHICONE 30 ML UDC PO ONE (11:14)
[2024-03-16] MEDS: LIDOCAINE VISC 2% SOLN 15 ML UDC PO ONE (11:15)
[2024-03-16 11:21] VITALS: PULSE 61; RESP 16; O2SAT 97
[2024-03-16] MEDS ORDERED: PANTOPRAZOLE SO40 MG PO (12:20)
== END 2024-03-16 13:51 | disposition home or self-care (01) ==
LOC: ER 09:25
DX: R07.9 Chest pain, unspecified (principal); I10 Essential (primary) hypertension; E78.5 Hyperlipidemia, unspecified; M06.9 Rheumatoid arthritis, unspecified; R94.31 Abnormal electrocardiogram [ECG] [EKG]; Z85.828 Personal history of other malignant neoplasm of skin; Z86.73 Personal history of transient ischemic attack (TIA), and cerebral infarction without residual deficits
CPT/HCPCS: 36415; 71045; 80053; 84484; 85025; 93005; 99284; J2470